=== PATIENT | male | born 1960 | race Caucasian/White ===

== ENCOUNTER 2016-07-20 21:52 | Inpatient (IN) | payer OTHER, MEDICARE ==
[~2016-07-20] VITALS: Ht 182.9 cm; Wt 99.0 kg
[~2016-07-20 21:52] MED LIST: ATOR20TA PO; CLON1TAB PO; FLUO20SO3 PO; IBUP-232 PO; LAMO25TA PO; LORTA5 PO; LOTE20TA3 PO; METF850T OR; NOVOLOGP2 SQ; PROT40TA PO; TRAZ150T2 PO; WELL150T PO
[2016-07-20 21:56] VITALS: BP 184/110; PULSE 74; RESP 20; TEMP 98; O2SAT 98
[2016-07-20] MEDS ORDERED: SODIUM CHLOR 0.9% 1000 ML INJ 1,000 ML IV ONE (22:03)
[2016-07-20] MEDS ORDERED: ALPR.5 PO (22:04)
[2016-07-20] MEDS ORDERED: PROZ40CA PO (22:04)
[2016-07-20] MEDS ORDERED: METF1000 PO (22:04)
[2016-07-20] MEDS ORDERED: PROT40TA PO (22:04)
[2016-07-20] MEDS ORDERED: NOVOLOGP2 SQ (22:04)
[2016-07-20] MEDS ORDERED: LOTE40TA PO (22:04)
[2016-07-20] MEDS ORDERED: ATOR20TA15 PO (22:04)
[2016-07-20] MEDS ORDERED: LAMO25TA PO (22:04)
[2016-07-20] MEDS ORDERED: BUPR150CR PO (22:04)
[2016-07-20 22:10] VITALS: RESP 20
[2016-07-20] MEDS ORDERED: SODIUM CHLORIDE 0.9% FLUSH 5 ML FLUSH IVF PRN (22:15)
[2016-07-20] MEDS ORDERED: LORazepam 2 MG/ML VIAL IVS ONE (22:15)
--- NOTE | 2016-07-20 22:30 | RADRPT ---
EXAM DATE/TIME: 07/20/2016 22:06 [facility] COMPARISON: No previous studies available for comparison. INDICATIONS : Altered mental status, headache, and seizure. RADIATION DOSE: 56.35 CTDIvol (mGy) MEDICAL HISTORY : Seizures. Hypertension. SURGICAL HISTORY : Hip replacement. ENCOUNTER: Initial ACUITY: 1 day PAIN SCALE: 3/10 LOCATION: cranial TECHNIQUE: Multiple contiguous axial images were obtained of the head. Using automated exposure control and adj ustment of the mA and/or kV according to patient size, radiation dose was kept as low as reasonably a chievable to obtain optimal diagnostic quality images. FINDINGS: There is no evidence for intracranial hemorrhage, mass effect, mass lesions, or edema. The visualize d bony structures appear intact. Slight degree of brain atrophy is seen. There are no signs of acute infarction for technique. CONCLUSION: Slight atrophic changes without any evidence for acute hemorrhage or mass effect . Pao Adame MD on July 20, 2016 at 22:27 Board Certified Radiologist. This report was verified electronically.
[2016-07-20 22:36] VITALS: BP 189/97; PULSE 66; RESP 20; O2SAT 99
--- NOTE | 2016-07-20 22:39 | PD ---
HPI Chief Complaint: Seizure Time Seen by Provider: 22:03 Travel History International Travel<30 days: No Contact w/Intl Traveler<30days: No Traveled to known affect area: No History of Present Illness HPI Is a 56-year-old man who presents to the emergency department after a witnessed generalized seizure. His a history of childhood seizures but none for many years. None as an adult. states he was sitting in a chair when he had his arm stretched out straight in front of him leg stretches straight out the generalized shaking for about a minute. EMS reports postictal confusion. He has been under a lot of stress recently, but no other recent illnesses or injuries. He takes Xanax as needed for anxiety, usually 2 times per day, but no recent change. He drinks a couple times a week, but his never had withdrawal symptoms. Denies any other new or worsening symptoms. History Past Medical History Narrative Medical Diabetes Childhood seizures Anxiety Hypertension Hyperlipidemia Musculoskeletal complains of previous back hip and left shoulder surgery Tetanus Vaccination: < 5 Years Influenza Vaccination: Yes PNEUMOCCOCAL Vaccine (Year): 3 Social History Alcohol Use: No Tobacco Use: Yes (06/25 PPD) Allergies-Medications (Allergen,Severity, Reaction): Coded Allergies: No Known Allergies (Verified , 07/23/15) Reported Meds & Prescriptions Reported Meds & Active Scripts Active Reported Lamotrigine 25 Mg Tab 50 Mg PO BID Lotensin (Benazepril HCl) 40 Mg Tab 40 Mg PO DAILY Metformin (Metformin HCl) 1,000 Mg Tab 1,000 Mg PO BIDPC With meals Protonix (Pantoprazole Sodium) 40 Mg Tab 40 Mg PO DAILY Novolog Inj (Insulin Aspart) 1,000 Unit/10 Ml Vial 0 SQ DIRECTED Sliding Scale as directed. Prozac (Fluoxetine HCl) 40 Mg Cap 80 Mg PO DAILY Wellbutrin SR 12 HR (Bupropion HCl) 150 Mg Tab 150 Mg PO Q12HR Atorvastatin (Atorvastatin Calcium) 20 Mg Tab 20 Mg PO HS Xanax (Alprazolam) 0.5 Mg Tab 0.5 Mg PO Q6H PRN Review of Systems Except as stated in HPI: all other systems reviewed are Neg Physical Exam Narrative GENERAL: Well-appearing 56 year-old man, still little bit confused. SKIN: Warm and dry. HEAD: Atraumatic. Normocephalic. EYES: Pupils equal and round. No scleral icterus. No injection or drainage. ENT: No nasal bleeding or discharge. Mucous membranes pink and moist. NECK: No meningismus. CARDIOVASCULAR: Regular rate and rhythm. No murmur appreciated. RESPIRATORY: No accessory muscle use. Clear to auscultation. Breath sounds equal bilaterally. GASTROINTESTINAL: Abdomen soft, non-tender, nondistended. Hepatic and splenic margins not palpable. MUSCULOSKELETAL: No obvious deformities. No edema. NEUROLOGICAL: Awake and alert. Sometimes slow to answer a few questions, but not overtly confused. No obvious cranial nerve deficits. Motor grossly within normal limits. Normal speech. Data Data Last Documented VS Vital Signs Date Time Temp Pulse Resp B/P Pulse Ox O2 Delivery O2 Flow Rate FiO2 07/20/16 22:36 66 20 189/97 99 Nasal Cannula 2 07/20/16 21:56 98.0 Orders Complete Blood Count With Diff (07/20/16 22:03) Alcohol (Ethanol) (07/20/16 22:03) Drug Screen, Random Urine (07/20/16 22:03) Electrocardiogram (07/20/16 ) Ct Brain W/O Iv Contrast(Rout) (07/20/16 ) Blood Glucose (07/20/16 22:03) Ecg Monitoring (07/20/16 22:03) Iv Access Insert/Monitor (07/20/16 22:03) Oximetry (07/20/16 22:03) Comprehensive Metabolic Panel (07/20/16 22:03) Sodium Chlor 0.9% 1000 Ml Inj (Ns 1000 M (07/20/16 22:03) Sodium Chloride 0.9% Flush (Ns Flush) (07/20/16 22:15) Lorazepam Inj (Ativan Inj) (07/20/16 22:15) Ua Includes Microscopic (07/20/16 22:03) Labs Laboratory Tests Test 07/20/16 07/20/16 22:06 23:10 White Blood Count 9.4 TH/MM3 Red Blood Count 4.49 MIL/MM3 Hemoglobin 14.6 GM/DL Hematocrit 41.1 % Mean Corpuscular Volume 91.7 FL Mean Corpuscular Hemoglobin 32.5 PG Mean Corpuscular Hemoglobin 35.5 % Concent Red Cell Distribution Width 13.4 % Platelet Count 408 TH/MM3 Mean Platelet Volume 7.2 FL Neutrophils (%) (Auto) 55.1 % Lymphocytes (%) (Auto) 34.3 % Monocytes (%) (Auto) 8.7 % Eosinophils (%) (Auto) 1.5 % Basophils (%) (Auto) 0.4 % Neutrophils # (Auto) 5.2 TH/MM3 Lymphocytes # (Auto) 3.2 TH/MM3 Monocytes # (Auto) 0.8 TH/MM3 Eosinophils # (Auto) 0.1 TH/MM3 Basophils # (Auto) 0.0 TH/MM3 CBC Comment DIFF FINAL Differential Comment Sodium Level 134 MEQ/L Potassium Level 3.9 MEQ/L Chloride Level 95 MEQ/L Carbon Dioxide Level 28.0 MEQ/L Anion Gap 11 MEQ/L Blood Urea Nitrogen 18 MG/DL Creatinine 1.38 MG/DL Estimat Glomerular Filtration 53 ML/MIN Rate Random Glucose 147 MG/DL Calcium Level 9.4 MG/DL Total Bilirubin 0.2 MG/DL Aspartate Amino Transf 26 U/L (AST/SGOT) Alanine Aminotransferase 54 U/L (ALT/SGPT) Alkaline Phosphatase 86 U/L Total Protein 7.7 GM/DL Albumin 3.8 GM/DL Ethyl Alcohol Level LESS THAN 3 MG/DL Urine Color YELLOW Urine Turbidity CLEAR Urine pH 6.0 Urine Specific [place] 1.012 Urine Protein NEG mg/dL Urine Glucose (UA) 300 mg/dL Urine Ketones NEG mg/dL Urine Occult Blood NEG Urine Nitrite NEG Urine Bilirubin NEG Urine Urobilinogen LESS THAN 2.0 MG/DL Urine Leukocyte Esterase NEG Urine RBC 2 /hpf Urine Hyaline Casts 7 /lpf Urine Mucus FEW /lpf Urine Opiates Screen NEG Urine Barbiturates Screen NEG Urine Amphetamines Screen NEG Urine Benzodiazepines Screen POS Urine Cocaine Screen NEG Urine Cannabinoids Screen NEG MDM Medical Decision Making Medical Screen Exam Complete: Yes Emergency Medical Condition: Yes Interpretation(s) My review of EKG: Sinus rhythm at a rate of 63, normal axis, normal intervals, no ischemia. Differential Diagnosis LABS: CBC is unremarkable. CMP is unremarkable. Mildly elevated creatinine. Glucose 147. UA demonstrates glucose in the urine. Urine drug screen positive for benzodiazepines. Narrative Course Medical decision making 56-year-old man with generalized seizure times about a minute, history of childhood seizures but nothing recently. No clear precipitants. We'll check CT , labs, urine. Recommend against driving. He sees Dr. Baker with neurology, will recommend outpatient follow-up. Diagnosis Primary Impression: Seizure Additional Instructions: Continue Xanax as prescribed. Follow-up with Dr. Baker in 2-[address] or operate heavy machinery until cleared by neurology. You should avoid being in any situation where if you had a seizure it could be dangerous such as swimming, looking on a ladder, or other such activities. Return to the emergency department for any seizures lasting more than 5 minutes , [id number] seizures, or seizures with prolonged confusion afterwards. Med/Other Pt SpecificInfo: No Change to Meds Disposition: 01 DISCHARGE HOME Condition: Stable Ernesto Ballesteros MD Jul 20, 2016 22:39
[2016-07-20 22:44] LABS: AUTOMATED NEUTROPHIL # 5.2 TH/MM3 (1.8-7.7); BASOPHIL % 0.4 % (0.0-2.0); EOSINOPHIL # 0.1 TH/MM3 (0-0.4); EOSINOPHIL % 1.5 % (0.0-4.0); HEMATOCRIT 41.1 % (39.0-51.0); HEMO FLAGS DIFF FINAL; LYMPH % 34.3 % (9.0-44.0); LYMPHOCYTE # 3.2 TH/MM3 (1.0-4.8); MEAN CELL VOLUME 91.7 FL (80.0-100.0); MEAN CORPUSCULAR HEMOGLOBIN 32.5 PG (27.0-34.0); MEAN CORPUSCULAR HGB CONC 35.5 % (32.0-36.0); MONO % 8.7 % (0.0-8.0); NEUT % 55.1 % (16.0-70.0); PLATELET COUNT 408 TH/MM3 (150-450); RED BLOOD COUNT 4.49 MIL/MM3 (4.50-5.90); RED CELL DISTRIBUTION WIDTH 13.4 % (11.6-17.2); WHITE BLOOD COUNT 9.4 TH/MM3 (4.0-11.0)
[2016-07-20 23:35] LABS: ALT (GPT) 54 U/L (12-78); ANION GAP 11 MEQ/L (5-15); AST (GOT) 26 U/L (15-37); BLOOD UREA NITROGEN 18 MG/DL (7-18); CHLORIDE 95 MEQ/L (98-107); GLOMERULAR FILTRATION RATE 53 ML/MIN (>89); POTASSIUM 3.9 MEQ/L (3.5-5.1); SODIUM (NA) 134 MEQ/L (136-145)
[2016-07-20 23:37] LABS: ALKALINE PHOSPHATASE 86 U/L (45-117); TOTAL BILIRUBIN ADULT 0.2 MG/DL (0.2-1.0)
[2016-07-20 23:44] LABS: BLOOD, URINE NEG (NEG); GLUCOSE,URINE 300 mg/dL (NEG); HYALINE CAST, URINE 7 /lpf (RARE); KETONE, URINE NEG (NEG); MUCUS URINE FEW /lpf (OCC); NITRITE,URINE NEG (NEG); URINE COLOR YELLOW (YELLW/STRAW)
[2016-07-20 23:45] LABS: AMPHETAMINE, URINE NEG (NEG); BARBITURATES, URINE NEG (NEG); COCAINE, URINE NEG (NEG)
[2016-07-20] MEDS ORDERED: NAPR500 PO (23:58)
[2016-07-20] MEDS ORDERED: HYDR-3533 PO (23:58)
[2016-07-21] VITALS (9 sets, daily range): BP systolic 109–163; BP diastolic 71–94; PULSE 55–90; RESP 18–21; TEMP 97.1–98.8; O2SAT 96–99
[2016-07-21] MEDS ORDERED: ACETAMINOPHEN/HYDROcodone 325 MG/5 MG TAB PO ONE
[2016-07-21] MEDS ORDERED: HYDR-3533 PO (00:57)
[2016-07-21] MEDS ORDERED: NAPR500 PO (00:57)
[2016-07-21] MEDS ORDERED: SODIUM CHLOR 0.9% 1000 ML INJ 1,000 ML IV ONE (01:15)
[2016-07-21] MEDS ORDERED: FOSPHENYTOIN INJ 1,500 MGPE in SODIUM CHLORIDE 0.9% INJ 100 ML IV ONE (01:15)
[2016-07-21] MEDS ORDERED: LORazepam 2 MG/ML VIAL IV PUSH ONE (01:15)
[2016-07-21] MEDS ORDERED: DEXTROSE 50% IN WATER 50 ML VIAL(D50) IV PUSH PRN (01:30)
[2016-07-21] MEDS ORDERED: BISACODYL 10 MG SUPP PR PRN (01:30)
[2016-07-21] MEDS ORDERED: SODIUM CHLORIDE 0.9% FLUSH 5 ML FLUSH FLUSH PRN (01:30)
[2016-07-21] MEDS ORDERED: ONDANSETRON HCL 4 MG/2 ML VIAL IVP PRN (01:30)
[2016-07-21] MEDS ORDERED: GLUCAGON 1 MG/ML VIAL OTHER PRN (01:30)
[2016-07-21] MEDS: SODIUM CHLOR 0.9% 1000 ML INJ 1,000 ML IV SCH ×3 (02:24→21:23)
--- NOTE | 2016-07-21 02:28 | HHI.HP ---
[facility] Primary [facility] Physician Camden Coley MD Admission Diagnosis seizure Diagnoses: (1) Seizure Diagnosis: Principal (2) HTN (hypertension) Diagnosis: Principal (3) DM (diabetes mellitus) Diagnosis: Principal Travel History International Travel<30 Days: No Contact w/Intl Traveler <30 Da: No Traveled to Known Affected Are: No History of Present Illness This is a 56-year-old male with PMH of HTN, Anxiety, DM and Hyperlipidemia was brought to the ER by EMS secondary to witnessed seizure activity by patient's . reports acute onset of seizure activity while at home lasting approx 1 min. +post-ictal state. Upon arrival, to ER, pt AA&Ox4. Reports h/o Seizure in childhood, but no seizure activity for several years. While in ER, pt w/ 2nd seizure. Currently post-ictal. Per review of medications, pt on Lamictal. On arrival, BP 184/110, HR 74, O2 sat 98% on RA, Afebrile. Currently BP 189/97, HR 66. CBC unremarkable. Creatinine 1.38, previously 1.57 on 03/18/15. Urine Drug Screen positive for Benzo, s/p Ativan in ER. U/a negative. reports pt follows w/ Dr. Baker as outpatient. On Xanax at home w/ no changes to medications. CT Head w/ no acute findings. Review of Systems Other ROS: Unable to obtain as patient is post ictal. Past Family Social History Past Medical History PMH: HTN, Anxiety, DM and Hyperlipidemia Past Surgical History PAST SURGICAL HISTORY: Right Hip Replacement, Left Shoulder Surgery Allergies: Coded Allergies: No Known Allergies (Verified , 07/23/15) Family History PAST FAMILY HISTORY: Reviewed. No h/o DM or CAD Social History PAST SOCIAL HISTORY: Negative for alcohol or drugs. Smokes 1/2 ppd. Physical Exam Vital Signs Vital Signs Date Time Temp Pulse Resp B/P Pulse Ox O2 Delivery O2 Flow Rate FiO2 07/21/16 01:23 20 07/20/16 22:36 66 20 189/97 99 Nasal Cannula 2 1/27/17 22:10 20 07/20/16 21:56 98.0 74 20 184/110 98 Physical Exam PE: GENERAL: Middle-aged white male in no acute distress. Postictal. HEENT: PERRLA, EOMI. No scleral icterus or conjunctival pallor. No lid lag or facial droop. CARDIOVASCULAR: Regular rate and rhythm. No obvious murmurs to auscultation. No chest tenderness to palpation. RESPIRATORY: No obvious rhonchi or wheezing. Clear to auscultation. Breath sounds equal bilaterally. GASTROINTESTINAL: Abdomen soft, non-tender, nondistended. BS normal. MUSCULOSKELETAL: Extremities without clubbing, cyanosis, or edema. No obvious deformities. NEUROLOGICAL: Postictal. No focal neurologic deficits. Moving both upper and lower extremities spontaneously. Laboratory Laboratory Tests Test 07/20/16 07/20/16 22:06 23:10 White Blood Count 9.4 Red Blood Count 4.49 Hemoglobin 14.6 Hematocrit 41.1 Mean Corpuscular Volume 91.7 Mean Corpuscular Hemoglobin 32.5 Mean Corpuscular Hemoglobin 35.5 Concent Red Cell Distribution Width 13.4 Platelet Count 408 Mean Platelet Volume 7.2 Neutrophils (%) (Auto) 55.1 Lymphocytes (%) (Auto) 34.3 Monocytes (%) (Auto) 8.7 Eosinophils (%) (Auto) 1.5 Basophils (%) (Auto) 0.4 Neutrophils # (Auto) 5.2 Lymphocytes # (Auto) 3.2 Monocytes # (Auto) 0.8 Eosinophils # (Auto) 0.1 Basophils # (Auto) 0.0 CBC Comment DIFF FINAL Differential Comment Sodium Level 134 Potassium Level 3.9 Chloride Level 95 Carbon Dioxide Level 28.0 Anion Gap 11 Blood Urea Nitrogen 18 Creatinine 1.38 Estimat Glomerular Filtration 53 Rate Random Glucose 147 Calcium Level 9.4 Total Bilirubin 0.2 Aspartate Amino Transf 26 (AST/SGOT) Alanine Aminotransferase 54 (ALT/SGPT) Alkaline Phosphatase 86 Total Protein 7.7 Albumin 3.8 Ethyl Alcohol Level LESS THAN 3 Urine Color YELLOW Urine Turbidity CLEAR Urine pH 6.0 Urine Specific [place] 1.012 Urine Protein NEG Urine Glucose (UA) 300 Urine Ketones NEG Urine Occult Blood NEG Urine Nitrite NEG Urine Bilirubin NEG Urine Urobilinogen LESS THAN 2.0 Urine Leukocyte Esterase NEG Urine RBC 2 Urine Hyaline Casts 7 Urine Mucus FEW Urine Opiates Screen NEG Urine Barbiturates Screen NEG Urine Amphetamines Screen NEG Urine Benzodiazepines Screen POS Urine Cocaine Screen NEG Urine Cannabinoids Screen NEG Result Diagram: 07/20/16220507/20/162205 Assessment and Plan Problem List: (1) Seizure ICD Code: R56.9 Status: Acute (2) HTN (hypertension) ICD Code: I10 Status: Acute (3) DM (diabetes mellitus) ICD Code: E11.9 Status: Acute Assessment and Plan A/P: 1. Seizure: h/o childhood seizures per report, however on Lamictal per review of home meds. Seizure x2 this evening. S/p Ativan in ER and Cerebyx 1gm IV x1. CT Head w/ no acute findings, images reviewed by me. Follows w/ Dr. Baker as outpatient, will consult for further recommendations. Seizure Precautions, Ativan prn, resume home Lamictal. U/a negative, Urine Drug Screen positive for Benzo 2. DM: Sliding scale w/ Accu-Cheks. Hold Metformin for now. 3. HTN: BP 180's systolic. Resume Benazepril. Monitor BP. 4. DVT Prophylaxis: SCD/Teds. 5. Social work for d/c planning as needed. 6. Case discussed w/ ER physician at length. Gabriella Gillis MD Jul 21, 2016 02:28
[2016-07-21] MEDS: INSULIN ASPART SUPPLEMENTAL SCALE SQ SCH ×4 (06:05→21:46)
[2016-07-21] MEDS: PANTOPRAZOLE SOD 40 MG DELAYED RELEASE TAB PO SCH (08:44)
[2016-07-21] MEDS: SODIUM CHLORIDE 0.9% FLUSH 5 ML FLUSH FLUSH SCH ×2 (08:44→21:41)
[2016-07-21] MEDS: FLUoxetine HCL 20 MG CAP PO SCH (08:45)
[2016-07-21] MEDS: lamoTRIgine 25 MG TAB PO SCH ×2 (08:45→21:41)
[2016-07-21] MEDS: LISINOPRIL 20 MG TAB PO SCH (08:45)
[2016-07-21] MEDS ORDERED: buPROPion HCL 150 MG SUSTAINED RELEASE TAB PO SCH (09:00)
[2016-07-21] MEDS: LORazepam 2 MG/ML VIAL IV PUSH PRN (09:14)
[2016-07-21] MEDS ORDERED: GADODIAMIDE PF 287 MG/ML 20 ML VIAL (for RAD MRI) IV ONE (10:31)
[2016-07-21] MEDS: ALPRAZolam 0.5 MG TAB PO PRN (11:06)
--- NOTE | 2016-07-21 11:15 | RADRPT ---
EXAM DATE/TIME: 07/21/2016 10:24 [facility] COMPARISON: CT BRAIN W/O CONTRAST, July 20, 2016, 22:06. INDICATIONS : Seizures. CONTRAST: 20 cc Omniscan (gadodiamide) IV MEDICAL HISTORY : Hypertension. Diabetes mellitus type 2. Hypercholesterolemia. SURGICAL HISTORY : Orthopedic. ENCOUNTER: Initial ACUITY: 1 day PAIN SCORE: 4/10 LOCATION: Right Foot TECHNIQUE: Multiplanar, multisequence MRI of the brain was performed both prior to and following the administrat ion of paramagnetic contrast. FINDINGS: CEREBRUM: The ventricles are normal for age. No evidence of midline shift, mass lesion, hemorrhage or acute in farction. No extraaxial fluid collections are seen. The pituitary gland and suprasellar cistern are normal in configuration. WHITE MATTER: No significant signal abnormalities are seen in the white matter. POSTERIOR FOSSA: The cerebellum and brainstem are intact. The 4th ventricle is midline. The cerebellopontine angle is unremarkable. The cerebellar tonsils are normal in position. DIFFUSION IMAGING: No focal areas of restricted diffusion are seen. No evidence of acute infarction. EXTRACRANIAL: The visualized portions of the orbits and paranasal sinuses are unremarkable. POST-CONTRAST: No abnormal areas of parenchymal or dural enhancement. No evidence of blood-brain barrier breakdown. CONCLUSION: Normal examination for a patient of this age. Axel Hernandez MD on July 21, 2016 at 11:12 Board Certified Radiologist. This report was verified electronically.
--- NOTE | 2016-07-21 12:27 | EKG ---
Date Performed: 07/20/2016 Time Performed: 21:57:28 PTAGE: 56 years EKG: Sinus rhythm NORMAL ECG PREVIOUS TRACING : 09/16/2014 18.33 Compared to prior tracing no significant change DOCTOR: Stephan Portillo Interpretating Date/Time 07/21/2016 12:24:56
--- NOTE | 2016-07-21 13:34 | MB ---
cc: MATTHEW BAKER M.D. DATE OF CONSULTATION 07/21/16 The patient is seen in neurological consultation. He is a 56-year-old with a history of remote seizures, during childhood. History of anxiety disorder, hypertension, diabetes. He was brought to the hospital with history of a seizure witnessed by the and apparently had another seizure witnessed by the EMS. He was postictal and has been fine after this. Apparently, he sees Dr. Baker, my associate for back and leg problems. It appears that he takes Lamictal and Xanax. He says his significant other is bringing his medications which are extensive as per the patient. He was given Celebrex and Ativan in the emergency room. The patient is a poor historian. The neurologic exam shows some anxiety, ocular movements normal. Visual lo are normal. No facial weakness but he has evidence of predominantly right-sided tongue injury. He has good strength in all four limbs with some tenderness left foot due to foot injury. Reflexes were trace response versus absent throughout. Plantar responses were flexor. The CT brain shows mild atrophy, otherwise unremarkable. CBC is unremarkable, essentially normal. Sodium 134, creatinine 1.38, glucose 147, otherwise normal chemistry. Toxicology positive for benzodiazepine. ASSESSMENT Seizure recurrence. The patient admits that the last alcohol was about 13 days ago. He has history of seizures during childhood and he is a poor historian but no apparent seizures for many years. He does take Lamictal but this is not the fairly for seizures. He follows with Dr. Baker but he says this is for back and legs and not for seizure disorder. He was started on cerebyx. I will request an EEG and MRI brain studies. The current list of medications includes bupropion and Prozac and this combination might be risky in terms of seizures, therefore, will have to reassess these and consider changing antidepressant medications. Will follow with a Dilantin level. Thank you for asking us to assist in his care. Matthew Baker MD OFC/EO /10:51 AM /1:21 PM
[2016-07-21] MEDS: PHENYTOIN SODIUM 100 MG CAP PO SCH ×2 (13:59→21:41)
[2016-07-21] MEDS ORDERED: oxyCODONE/ACETAMINOPHEN 5 MG/325 MG TAB PO PRN (17:30)
[2016-07-21] MEDS: oxyCODONE/ACETAMINOPHEN 10 MG/325 MG TAB PO PRN (17:44)
--- NOTE | 2016-07-21 18:07 | MG ---
cc: MATTHEW CARVALHO M.D. Lab No: Date: Age: 56 Sex: M Race: HISTORY: An EEG was obtained on this 56-year-old patient with history of seizures. DESCRIPTION OF THE RECORD: The patient is awake and asleep. There is 10-14 per second activity centrally and posteriorly during wakefulness. There are low amplitude beta rhythms diffusely. Throughout the study there are some occasional, left more than right, sharp discharges. The patient enters sleep stage I. There is intermittent awake and asleep. Later on there is sleep stage II as well. Photic stimulation was unremarkable. INTERPRETATION: Abnormal EEG because of the intermittent sharp / spike discharges bilaterally, possibly left more than right temporal head region. These findings are suggestive of an epileptiform abnormality but no ictal pattern noted. Matthew Carvalho MD [facility] /5:41 PM /6:04 PM
--- NOTE | 2016-07-21 18:41 | RADRPT ---
EXAM DATE/TIME: 07/21/2016 17:40 [facility] COMPARISON: No previous studies available for comparison. INDICATIONS : Fall. Left foot pain. MEDICAL HISTORY : None. SURGICAL HISTORY : None. ENCOUNTER: Initial ACUITY: 1 day PAIN SCORE: 7/10 LOCATION: Left lateral FINDINGS: Three view examination of the left foot demonstrates no soft tissue swelling, dislocation, or fractur e. The tarsal bones appear intact. The interphalangeal and metatarsophalangeal joints are intact. The calcaneus is intact. Bony mineralization is normal. CONCLUSION: No evidence of recent bony injury. Oneal Parisi MD on July 21, 2016 at 18:38 Board Certified Radiologist. This report was verified electronically.
[2016-07-21] MEDS: ATORVASTATIN 20 MG TAB PO SCH (21:41)
[2016-07-22] MEDS: ALPRAZolam 0.5 MG TAB PO PRN ×2 (03:27→08:37)
[2016-07-22 04:33] VITALS: BP 147/82; PULSE 66; RESP 20; TEMP 98.8; O2SAT 98
[2016-07-22] MEDS: PHENYTOIN SODIUM 100 MG CAP PO SCH ×3 (06:01→22:01)
[2016-07-22] MEDS: INSULIN ASPART SUPPLEMENTAL SCALE SQ SCH ×4 (06:38→21:00)
[2016-07-22 07:39] VITALS: BP 181/89; PULSE 67; RESP 20; TEMP 98.4; O2SAT 98
[2016-07-22 08:00] VITALS: PULSE 67
[2016-07-22] MEDS: SODIUM CHLOR 0.9% 1000 ML INJ 1,000 ML IV SCH ×2 (08:36→17:23)
[2016-07-22] MEDS: LISINOPRIL 20 MG TAB PO SCH (08:36)
[2016-07-22] MEDS: PANTOPRAZOLE SOD 40 MG DELAYED RELEASE TAB PO SCH (08:37)
[2016-07-22] MEDS: FLUoxetine HCL 20 MG CAP PO SCH (08:37)
[2016-07-22] MEDS: lamoTRIgine 25 MG TAB PO SCH (08:37)
[2016-07-22] MEDS: SODIUM CHLORIDE 0.9% FLUSH 5 ML FLUSH FLUSH SCH ×2 (08:38→22:01)
[2016-07-22 08:47] LABS: AUTOMATED NEUTROPHIL # 6.6 TH/MM3 (1.8-7.7); BASOPHIL # 0.1 TH/MM3 (0-0.2); BASOPHIL % 0.6 % (0.0-2.0); EOSINOPHIL # 0.1 TH/MM3 (0-0.4); EOSINOPHIL % 0.8 % (0.0-4.0); HEMO FLAGS DIFF FINAL; LYMPH % 25.8 % (9.0-44.0); LYMPHOCYTE # 2.6 TH/MM3 (1.0-4.8); MEAN CELL VOLUME 92.6 FL (80.0-100.0); MEAN CORPUSCULAR HEMOGLOBIN 32.2 PG (27.0-34.0); MEAN CORPUSCULAR HGB CONC 34.8 % (32.0-36.0); MONO % 8.3 % (0.0-8.0); NEUT % 64.5 % (16.0-70.0); PLATELET COUNT 312 TH/MM3 (150-450); RED BLOOD COUNT 4.22 MIL/MM3 (4.50-5.90); RED CELL DISTRIBUTION WIDTH 13.6 % (11.6-17.2); WHITE BLOOD COUNT 10.2 TH/MM3 (4.0-11.0)
[2016-07-22 09:07] LABS: ALKALINE PHOSPHATASE 66 U/L (45-117); ALT (GPT) 48 U/L (12-78); ANION GAP 10 MEQ/L (5-15); AST (GOT) 21 U/L (15-37); BICARBONATE 24.8 MEQ/L (21.0-32.0); BLOOD UREA NITROGEN 9 MG/DL (7-18); CHLORIDE 100 MEQ/L (98-107); GLOMERULAR FILTRATION RATE 76 ML/MIN (>89); POTASSIUM 3.2 MEQ/L (3.5-5.1); SODIUM (NA) 135 MEQ/L (136-145); TOTAL BILIRUBIN ADULT 0.3 MG/DL (0.2-1.0)
--- NOTE | 2016-07-22 09:29 | HHI.PR ---
Subjective Remarks Follow up for seizures. The patient states he had a "bad night" however no further seizure episodes. He was not able to get any sleep and has no appetite. He admits to feeling anxious and depressed, denies any SI/HI. Significant other at bedside states the patient has been very anxious about what's going on and why his seizures have returned. He sees Dr. Calhoun as outpatient for psychiatry. He sees PCP Dr. Camden Coley. Objective Vitals Vital Signs Date Time Temp Pulse Resp B/P Pulse Ox O2 Delivery O2 Flow Rate FiO2 07/22/16 07:39 98.4 67 20 181/89 98 07/22/16 04:33 98.8 66 20 147/82 98 07/21/16 23:54 71 07/21/16 23:44 98.5 66 18 155/81 98 07/21/16 20:33 98.7 67 18 118/81 96 07/21/16 16:00 98.8 64 18 163/94 97 07/21/16 12:30 97.1 66 21 135/82 96 I/O 07/21/16 07/21/16 07/21/16 07/22/16 07/22/16 07/22/16 07:00 15:00 23:00 07:00 15:00 23:00 Intake Total 1200 ml 480 ml Output Total 600 ml 2000 ml 1000 ml 600 ml Balance 600 ml -1520 ml -1000 ml -600 ml Intake Oral 200 ml 480 ml IV Total 1000 ml Output Urine Total 600 ml 2000 ml 1000 ml 600 ml # Voids 1 Result Diagram: 07/22/16 0825 07/22/16 0825 Imaging Last Impressions Foot X-Ray 07/21/16 0000 Signed Impressions: Service Date/Time: Thursday, July 21, 2016 17:40 - CONCLUSION: No evidence of recent bony injury. Oneal Parsii MD Brain MRI 07/21/16 0000 Signed Impressions: Service Date/Time: Thursday, July 21, 2016 10:24 - CONCLUSION: Normal examination for a patient of this age. Axel Hernandez MD Head CT 07/20/16 0000 Signed Impressions: Service Date/Time: Wednesday, July 20, 2016 22:06 - CONCLUSION: Slight atrophic changes without any evidence for acute hemorrhage or mass effect. Pao Adame MD Objective Remarks GENERAL: Well-nourished, well-developed middle aged male patient in NAD. SKIN: Warm and dry. No rash. HEAD: Normocephalic. Atraumatic. EYES: Pupils equal and round. No scleral icterus. No injection or drainage. ENT: No nasal bleeding or discharge. Mucous membranes pink and moist. NECK: Supple. Trachea midline. CARDIOVASCULAR: Regular rate and rhythm. S1, S2 noted. No murmur appreciated. RESPIRATORY: No accessory muscle use. Clear to auscultation. Breath sounds equal bilaterally. GASTROINTESTINAL: Abdomen soft, non-tender, nondistended. Normoactive bowel sounds x4. MUSCULOSKELETAL: No obvious deformities. Extremities without clubbing, cyanosis , or edema. NEUROLOGICAL: Awake and alert. No obvious cranial nerve deficits. Motor grossly within normal limits. 5/5 muscle strength in bilateral upper and lower extremities. Normal speech. PSYCHIATRIC: Anxious/depressed mood; insight and judgment normal. Medications and IVs Current Medications Medications (Trade) Dose Ordered Sig/Anh Route Start Time Stop Time Status Last Admin (NS 1000 ml Inj) 1,000 ml @ 100 mls/hr Q10H IV 07/21/16 01:23 07/22/16 08:36 (NS Flush) 2 ml UNSCH PRN FLUSH 07/21/16 01:30 (NS Flush) 2 ml BID FLUSH 07/21/16 09:00 07/21/16 21:41 (Zofran Inj) 4 mg Q6H PRN IVP 07/21/16 01:30 (Dulcolax Supp) 10 mg DAILY PRN NV 07/21/16 01:30 (Tylenol) 650 mg Q6H PRN PO 07/21/16 01:30 07/22/16 10:36 (Ativan Inj) 1 mg Q5M PRN IV PUSH 07/21/16 01:30 07/21/16 09:14 (D50w (Vial) Inj) 25 ml UNSCH PRN IV PUSH 07/21/16 01:30 (Glucagon Inj) 1 mg UNSCH PRN OTHER 07/21/16 01:30 (Xanax) 0.5 mg Q6H PRN PO 07/21/16 02:30 07/22/16 08:37 (Lipitor) 20 mg HS PO 07/21/16 21:00 07/21/16 21:41 (Prinivil) 40 mg DAILY PO 07/21/16 09:00 07/22/16 08:36 (PROzac) 80 mg DAILY PO 07/21/16 09:00 07/22/16 08:37 (LaMICtal) 50 mg BID PO 07/21/16 09:00 07/22/16 08:37 (Protonix) 40 mg DAILY PO 07/21/16 09:00 07/22/16 08:37 (Dilantin) 100 mg Q8HR PO 07/21/16 14:00 07/22/16 06:01 (Percocet 5-325 Mg) 1 tab Q6H PRN PO 07/21/16 17:30 (Percocet 10-325 Mg) 1 tab Q6H PRN PO 07/21/16 17:30 07/21/16 17:44 Urinary Catheter: No Vascular Central Line Catheter: No A/P Problem List: (1) Seizure ICD Code: R56.9 Status: Acute (2) HTN (hypertension) ICD Code: I10 Status: Acute (3) DM (diabetes mellitus) ICD Code: E11.9 Status: Acute Assessment and Plan 56-year-old male with PMH of HTN, Anxiety, Depression, DM and HLD was brought by EMS secondary to witnessed seizure activity by patient's , lasted 1 minute, was postictal, then had another seizure in ER. Seizure: h/o childhood seizures per report, none in many years. Seizure x2 witnessed. S/p Cerebyx 1gm IV x1. CT Head w/ no acute findings, images reviewed by me. U/a negative, Urine Drug Screen positive for Benzo. Seizure Precautions, Ativan prn, resume home Lamictal. Consult neurology, seen by Dr. Carvalho. Brain MRI unremarkable. EEG abnormal with intermittent sharp/spike discharges bilaterally, possible L > R, suggestive of epileptiform abnormality. Continue on Dilantin 100mg po tid. Phenytoin level therapeutic. Await neurology f/up or clearance for discharge. DM: Sliding scale w/ Accu-Cheks. Hold Metformin for now. HTN: BP 180's systolic. Resume Benazepril. Monitor BP. Improving however intermittent elevated BP likely secondary to anxiety. Anxiety/Depression: with possible acute depressive state, poor appetite/insomnia ; however no SI/HI. Follows with Dr. Calhoun as outpatient. Continue Wellbutrin, Prozac, Xanax prn. DVT Prophylaxis: SCD/Teds. Written by Marley Hardin, acting as scribe for Dr. Sheppard on 07/22/16 at 09:27. The documentation accurately reflects the work performed [id number] by me Dr. Sheppard on 07/22/16 at 09:27. Discharge Planning Possible discharge if cleared by neurology. Marley Hardin PA-C Jul 22, 2016 09:29 Shoshana Sheppard MD Jul 22, 2016 14:35
[2016-07-22] MEDS: ACETAMINOPHEN 325 MG TAB PO PRN ×2 (10:36→22:00)
[2016-07-22 11:22] VITALS: BP 154/85; PULSE 67; RESP 20; TEMP 98.7; O2SAT 98
[2016-07-22] MEDS ORDERED: POTASSIUM CHLORIDE 20 MEQ CONTROLLED RELEASE TAB PO ONE (12:45)
[2016-07-22] MEDS: oxyCODONE/ACETAMINOPHEN 10 MG/325 MG TAB PO PRN ×2 (13:15→23:36)
[2016-07-22 15:26] VITALS: BP 159/94; PULSE 94; RESP 20; TEMP 98.2; O2SAT 94
[2016-07-22] MEDS: LORazepam 2 MG/ML VIAL IV PUSH PRN (15:36)
[2016-07-22] MEDS ORDERED: levETIRAcetam 1000 MG INJ 100 ML IV ONE (16:00)
[2016-07-22 21:33] LABS: MAGNESIUM 1.4 MG/DL (1.5-2.5); POTASSIUM 3.2 MEQ/L (3.5-5.1)
[2016-07-22] MEDS: levETIRAcetam 500 MG TAB PO SCH (21:59)
[2016-07-22] MEDS: ATORVASTATIN 20 MG TAB PO SCH (22:00)
[2016-07-22] MEDS: lamoTRIgine 100 MG TAB PO SCH (22:01)
[2016-07-23] MEDS: SODIUM CHLOR 0.9% 1000 ML INJ 1,000 ML IV SCH ×3 (03:23→23:23)
[2016-07-23] MEDS: LORazepam 2 MG/ML VIAL IV PUSH PRN ×3 (03:49→13:32)
[2016-07-23 04:00] VITALS: BP 150/78; PULSE 93; RESP 21; TEMP 98; O2SAT 98
[2016-07-23] MEDS: PHENYTOIN SODIUM 100 MG CAP PO SCH ×3 (05:57→21:36)
[2016-07-23] MEDS: INSULIN ASPART SUPPLEMENTAL SCALE SQ SCH ×4 (06:02→21:00)
[2016-07-23 07:58] VITALS: BP 171/89; PULSE 87; RESP 22; TEMP 98.8; O2SAT 97
[2016-07-23] MEDS: FLUoxetine HCL 20 MG CAP PO SCH (09:41)
[2016-07-23] MEDS: PANTOPRAZOLE SOD 40 MG DELAYED RELEASE TAB PO SCH (09:41)
[2016-07-23] MEDS: LISINOPRIL 20 MG TAB PO SCH (09:41)
[2016-07-23] MEDS: lamoTRIgine 100 MG TAB PO SCH ×2 (09:41→21:36)
[2016-07-23] MEDS: SODIUM CHLORIDE 0.9% FLUSH 5 ML FLUSH FLUSH SCH ×2 (09:41→21:35)
[2016-07-23] MEDS: levETIRAcetam 500 MG TAB PO SCH ×2 (09:41→21:36)
--- NOTE | 2016-07-23 10:32 | HHI.PR ---
Subjective Remarks Follow up for seizure. The patient had a seizure yesterday afternoon however none since. He does not recall the event. Denies any tremor. Currently only oriented to his name, not birthdate/place/time. He has been in restraints throughout the night, constantly trying to get up from bed, stating he's going to leave. The daughter at bedside reports that the patient has been voicing severe depression, saying he's going to kill himself and kill his girlfriend. He 's also saying his family is ruining his "exit plan". Family requesting psychiatric evaluation. Objective Vitals Vital Signs Date Time Temp Pulse Resp B/P Pulse Ox O2 Delivery O2 Flow Rate FiO2 07/23/16 07:58 98.8 87 22 171/89 97 07/23/16 04:00 98.0 93 21 150/78 98 07/22/16 23:00 20 07/22/16 15:26 98.2 94 20 159/94 94 07/22/16 11:22 98.7 67 20 154/85 98 I/O 07/22/16 07/22/16 07/22/16 07/23/16 07/23/16 07/23/16 07:00 15:00 23:00 07:00 15:00 23:00 Output Total 1000 ml 1700 ml Balance -1000 ml -1700 ml Output Urine Total 1000 ml 1700 ml # Voids 2 Result Diagram: 07/22/16 0825 07/22/166 Imaging Last Impressions Foot X-Ray 07/21/16 0000 Signed Impressions: Service Date/Time: Thursday, July 21, 2016 17:40 - CONCLUSION: No evidence of recent bony injury. Oneal Parisi MD Brain MRI 07/21/16 0000 Signed Impressions: Service Date/Time: Thursday, July 21, 2016 10:24 - CONCLUSION: Normal examination for a patient of this age. Axel Hernandez MD Head CT 07/20/16 0000 Signed Impressions: Service Date/Time: Wednesday, July 20, 2016 22:06 - CONCLUSION: Slight atrophic changes without any evidence for acute hemorrhage or mass effect. Pao Adame MD Objective Remarks GENERAL: Well-nourished, well-developed middle aged male patient in NAD. Extremities in restraints. SKIN: Warm and dry. No rash. HEAD: Normocephalic. Atraumatic. EYES: Pupils equal and round. No scleral icterus. No injection or drainage. ENT: No nasal bleeding or discharge. Mucous membranes pink and moist. NECK: Supple. Trachea midline. CARDIOVASCULAR: Regular rate and rhythm. S1, S2 noted. No murmur appreciated. RESPIRATORY: No accessory muscle use. Clear to auscultation. Breath sounds equal bilaterally. GASTROINTESTINAL: Abdomen soft, non-tender, nondistended. Normoactive bowel sounds x4. MUSCULOSKELETAL: No obvious deformities. Extremities without clubbing, cyanosis , or edema. NEUROLOGICAL: Awake and alert, but disoriented, oriented to self only. No obvious cranial nerve deficits. Motor grossly within normal limits. 5/5 muscle strength in bilateral upper and lower extremities. Normal speech. PSYCHIATRIC: Anxious/depressed mood; insight and judgment limited at this time. Medications and IVs Current Medications Medications (Trade) Dose Ordered Sig/Anh Route Start Time Stop Time Status Last Admin (NS 1000 ml Inj) 1,000 ml @ 100 mls/hr Q10H IV 07/21/16 01:23 07/22/16 08:36 (NS Flush) 2 ml UNSCH PRN FLUSH 07/21/16 01:30 (NS Flush) 2 ml BID FLUSH 07/21/16 09:00 07/23/16 09:41 (Zofran Inj) 4 mg Q6H PRN IVP 07/21/16 01:30 (Dulcolax Supp) 10 mg DAILY PRN [place] 07/21/16 01:30 (Tylenol) 650 mg Q6H PRN PO 07/21/16 01:30 07/22/16 22:00 (Ativan Inj) 1 mg Q5M PRN IV PUSH 07/21/16 01:30 07/22/16 15:36 (D50w (Vial) Inj) 25 ml UNSCH PRN IV PUSH 07/21/16 01:30 (Glucagon Inj) 1 mg UNSCH PRN OTHER 07/21/16 01:30 (Xanax) 0.5 mg Q6H PRN PO 07/21/16 02:30 07/22/16 08:37 (Lipitor) 20 mg HS PO 07/21/16 21:00 07/22/16 22:00 (Prinivil) 40 mg DAILY PO 07/21/16 09:00 07/23/16 09:41 (PROzac) 80 mg DAILY PO 07/21/16 09:00 07/23/16 09:41 (Protonix) 40 mg DAILY PO 07/21/16 09:00 07/23/16 09:41 (Dilantin) 100 mg Q8HR PO 07/21/16 14:00 07/22/16 22:01 (Percocet 5-325 Mg) 1 tab Q6H PRN PO 07/21/16 17:30 (Percocet 10-325 Mg) 1 tab Q6H PRN PO 07/21/16 17:30 07/22/16 23:36 (LaMICtal) 100 mg BID PO 07/22/16 21:00 07/23/16 09:41 (Keppra) 1,000 mg Q12HR PO 07/22/16 21:00 07/23/16 09:41 (Ativan Inj) 1 mg Q3H PRN IV PUSH 07/23/16 00:45 07/23/16 03:49 Urinary Catheter: No Vascular Central Line Catheter: No A/P Problem List: (1) Seizure ICD Code: R56.9 Status: Acute (2) HTN (hypertension) ICD Code: I10 Status: Acute (3) DM (diabetes mellitus) ICD Code: E11.9 Status: Acute Assessment and Plan 56-year-old male with PMH of HTN, Anxiety, Depression, DM and HLD was brought by EMS secondary to witnessed seizure activity by patient's , lasted 1 minute, was postictal, then had another seizure in ER. Intractable Seizures: h/o childhood seizures per report, none in many years. Seizure x2 witnessed. S/p Cerebyx 1gm IV x1. CT Head w/ no acute findings, images reviewed by me. U/a negative, UDS positive for Benzo. Seizure Precautions , Ativan prn, resume home Lamictal. Consult neurology, seen by Dr. Carvalho. Brain MRI unremarkable. EEG abnormal with intermittent sharp/spike discharges bilaterally, possible L > R, suggestive of epileptiform abnormality. Continue on Dilantin 100mg po tid. Phenytoin level therapeutic. Patient with another witnessed seizure 07/22, discussed with Dr. Carvalho, loaded with 1G IV Keppra, then started on Keppra 1000mg po bid and increased Lamictal to 100mg bid. No further seizures overnight. Alcohol Withdrawal, suspected Delirium Tremens: patient reports drinking a pint of [place] daily. Started on CIWA protocol. Thiamine/Folate/MV ordered. Seizure precautions. Anxiety/Depression with suspected Acute Depressive state and Psychosis: poor appetite/insomnia; now with suicidal/homicidal ideations per family, disoriented. Follows with Dr. Calhoun as outpatient. Continue Wellbutrin, Prozac, Xanax prn. Consult psychiatry. Metabolic Encephalopathy: patient oriented x1. Suspect multifactorial with DTs, seizures and post-ictal state, and acute psychosis. Treating as above. Neuro checks. DM: Sliding scale w/ Accu-Cheks. Hold Metformin for now. HTN: BP 180's systolic. Resume Benazepril. Monitor BP. Improving however intermittent elevated BP likely secondary to anxiety. DVT Prophylaxis: SCD/Teds. Written by Marley Hardin, acting as scribe for Dr. Sheppard on 07/23/16 at 10:31. The documentation accurately reflects the work performed [id number] by me Dr. Sheppard on 07/23/16 at 10:31. Discharge Planning Admit to inpatient with encephalopathy, intractable seizures, alcohol withdrawal with suspected DTs. Marley Hardin PA-C Jul 23, 2016 10:32 Shoshana Sheppard MD Jul 23, 2016 15:03
[2016-07-23 11:59] VITALS: BP 181/97; PULSE 83; RESP 20; TEMP 99.1; O2SAT 94
[2016-07-23] MEDS ORDERED: LORazepam 1 MG TAB PO PRN (13:00)
[2016-07-23] MEDS ORDERED: LORazepam 2 MG TAB PO PRN (13:00)
[2016-07-23] MEDS ORDERED: LORazepam 2 MG/ML VIAL IV PUSH PRN ×4 (13:00)
[2016-07-23] MEDS ORDERED: HALOPERIDOL LACTATE 5 MG/ML AMP IM PRN ×2 (13:00→16:00)
[2016-07-23] MEDS ORDERED: FLUMAZENIL 0.5 MG/5 ML VIAL IV PUSH PRN (13:00)
[2016-07-23] MEDS ORDERED: THIAMINE HCL 100 MG TAB PO SCH (13:00)
[2016-07-23] MEDS: MULTIVITAMINS/MINERALS THERAPEUTIC TAB PO SCH (13:32)
[2016-07-23] MEDS: FOLIC ACID 1 MG TAB PO SCH (13:32)
--- NOTE | 2016-07-23 13:44 | HHI.PR ---
Review/Management Daily Summary seizure recurrence yesterday and confused, agitated today ex- and his daughter at bedside lives with girlfriend, hx of alcoholism possible etoh withdrawal, discussed with PA monitor, eeg abnormal continue seizure meds adjusted yesterday, welbutrin is a risk factor Subjective Subjective Comments another seizure yesterday, confused and agitated today, admits one pint of [place] re[place] daily, Active Medications Current Medications Medications (Trade) Dose Ordered Sig/Anh Route Start Time Stop Time Status Last Admin (NS 1000 ml Inj) 1,000 ml @ 100 mls/hr Q10H IV 07/21/16 01:23 07/22/16 08:36 (NS Flush) 2 ml UNSCH PRN FLUSH 07/21/16 01:30 (NS Flush) 2 ml BID FLUSH 07/21/16 09:00 07/23/16 09:41 (Zofran Inj) 4 mg Q6H PRN IVP 07/21/16 01:30 (Dulcolax Supp) 10 mg DAILY PRN [place] 07/21/16 01:30 (Tylenol) 650 mg Q6H PRN PO 07/21/16 01:30 07/22/16 22:00 (Ativan Inj) 1 mg Q5M PRN IV PUSH 07/21/16 01:30 07/22/16 15:36 (D50w (Vial) Inj) 25 ml UNSCH PRN IV PUSH 07/21/16 01:30 (Glucagon Inj) 1 mg UNSCH PRN OTHER 07/21/16 01:30 (Xanax) 0.5 mg Q6H PRN PO 07/21/16 02:30 07/22/16 08:37 (Lipitor) 20 mg HS PO 07/21/16 21:00 07/22/16 22:00 (Prinivil) 40 mg DAILY PO 07/21/16 09:00 07/23/16 09:41 (PROzac) 80 mg DAILY PO 07/21/16 09:00 07/23/16 09:41 (Protonix) 40 mg DAILY PO 07/21/16 09:00 07/23/16 09:41 (Dilantin) 100 mg Q8HR PO 07/21/16 14:00 07/23/16 13:32 (Percocet 5-325 Mg) 1 tab Q6H PRN PO 07/21/16 17:30 (Percocet 10-325 Mg) 1 tab Q6H PRN PO 07/21/16 17:30 07/22/16 23:36 (LaMICtal) 100 mg BID PO 07/22/16 21:00 07/23/16 09:41 (Keppra) 1,000 mg Q12HR PO 07/22/16 21:00 07/23/16 09:41 (Ativan Inj) 1 mg Q3H PRN IV PUSH 07/23/16 00:45 07/23/16 13:32 (Folate) 1 mg DAILY PO 07/23/16 13:00 07/28/16 12:59 07/23/16 13:32 (Vitamin B1) 100 mg DAILY PO 07/23/16 13:00 07/23/16 13:32 (Theragran M Tab) 1 tab DAILY PO 07/23/16 13:00 07/28/16 12:59 07/23/16 13:32 (Romazicon Inj) 0.2 mg Q1M PRN IV PUSH 07/23/16 13:00 (Ativan) 1 mg Q4H PRN PO 07/23/16 13:00 (Ativan Inj) 1 mg Q4H PRN IV PUSH 07/23/16 13:00 (Ativan) 2 mg Q2H PRN PO 07/23/16 13:00 (Ativan Inj) 2 mg Q2H PRN IV PUSH 07/23/16 13:00 (Ativan Inj) 2 mg Q1H PRN IV PUSH 07/23/16 13:00 (Ativan Inj) 2 mg Q15M PRN IV PUSH 07/23/16 13:00 (Haldol Inj) 2 mg Q15M PRN IM 07/23/16 13:00 Allergies Allergies Coded Allergies No Known Allergies (Verified07/23/15) Exam I&O / VS 07/22/16 07/22/16 07/23/16 15:00 23:00 07:00 Output Total 1700 ml Balance -1700 ml Output Urine Total 1700 ml # Voids 2 Vital Signs Date Time Temp Pulse Resp B/P Pulse Ox O2 Delivery O2 Flow Rate FiO2 07/23/16 11:59 99.1 83 20 181/97 94 07/23/16 07:58 98.8 87 22 171/89 97 07/23/16 04:00 98.0 93 21 150/78 98 07/22/16 23:00 20 07/22/16 15:26 98.2 94 20 159/94 94 Objective Micro and Labs Laboratory Tests Test 07/22/16 20:46 Sodium Level 136 Potassium Level 3.2 Chloride Level 101 Carbon Dioxide Level 24.0 Anion Gap 11 Blood Urea Nitrogen 8 Creatinine 1.10 Estimat Glomerular Filtration 69 Rate Random Glucose 120 Calcium Level 8.7 Magnesium Level 1.4 Colby Carvalho MD Jul 23, 2016 13:44
[2016-07-23] MEDS ORDERED: cloNIDine HCL 0.1 MG TAB PO PRN (13:45)
--- NOTE | 2016-07-23 14:49 | PD.CONS ---
Provisional Diagnosis Admission Date Jul 23, 2016 at 13:43 [place] I. Unspecified psychosis, rule out post ictal psychosis, rule out delirium due to alcohol/benzodiazepines withdrawal, alcohol use disorder, anxiety and depression [place] II. Deferred [place] III. Diabetes mellitus, lower back pain [place] IV. History of alcohol use disorder [place] V. 35 History of Present Illness Service Psychiatry Consult Requested By Primary Care Physician Camden Coley MD HPI The patient is a 56-year-old man, domicile with his girlfriend, unemployed, on SSI, with psychiatric history of depression and anxiety, alcohol use disorder, no previous psychotic hospitalizations, he is on outpatient psychiatric care with Dr. Calhoun in [place], he is on Prozac 80 mg, Xanax 2 mg 4 times a day , with PMH of HTN, DM and Hyperlipidemia was brought to the ER by EMS secondary to witnessed seizure activity by patient's girlfriend. She reports acute onset of seizure activity while at home lasting approx 1 min. + post-ictal state. Upon arrival, to ER, pt AA&Ox4. Reports h/o Seizure in childhood, but no seizure activity for several years. While in ER, pt w/ 2nd seizure. Currently post-ictal. Per review of medications, pt on Lamictal. On arrival, BP 184/110, HR 74, O2 sat 98% on RA, Afebrile. Currently BP 189/97, HR 66. CBC unremarkable. Creatinine 1.38, previously 1.57 on 03/18/15. Urine Drug Screen positive for Benzo, s/p Ativan in ER. U/a negative. reports pt follows w/ Dr. Baker as outpatient. On Xanax at home w/ no changes to medications. CT Head w/ no acute findings. Patient is being followed by neurology. Consulted to psychiatry due to acute psychosis, active paranoia and disorganized behavior. Patient was seen for psychiatric evaluation in the ER, his restrained in 4 points due to agitation and disorganized behavior. He seems to be internally preoccupied, at times confused,perplexed, but he can answer most of our questions. He is oriented 3, however he laughs inappropriately continuously and is oddly related. He seems to be guarded and paranoid, looking continuously outside and asking "why does people out there keep looking at me, they want to hurt me!!". He denies depression, he denies anxiety, he says that he has been stable in his current psychotropic regimen that he follows strictly. He denies suicidal and homicidal ideation, he denies visual and auditory hallucinations. His ex- and his daughter, both at bedside, also his girlfriend over the phone in the speak, explains that this is the first time the patient has presented this picture. He tends to abuse alcohol, but he last drinks was most probably about a week ago. They say that the patient usually also abuse his anxiety medication and he sometimes drink alcohol along with the Xanax. The patient denies, family confirms, illegal drugs use. Review of Systems ROS Limitations: Altered Mental Status Past Family Social History Coded Allergies: No Known Allergies (Verified , 07/23/15) Active Scripts Hydrocodone-Acetaminophen (Lortab)5-325 Mg Tab1-2 Tab PO Q6H PRN (PAIN) #12 TAB Prov:Ernesto Ballesteros MD 07/21/16 Naproxen (Naprosyn)500 Mg Dtt810 Mg PO BID PRN (PAIN SCALE 1 TO 10) #20 TAB Prov:Ernesto Ballesteros MD 07/21/16 Reported Medications Lamotrigine 25 Mg Tab50 Mg PO BID #60 TAB Ref 0 07/20/16 Benazepril (Lotensin)40 Mg Tab40 Mg PO DAILY #30 TAB Ref 0 07/20/16 Metformin 1,000 Mg Tab1,000 Mg PO BIDPC #60 TAB Ref 0 With meals 07/20/16 Pantoprazole (Protonix)40 Mg Tab40 Mg PO DAILY #30 TAB Ref 0 07/20/16 Insulin Aspart Inj (Novolog Inj)1,000 Unit/10 Ml Vial SQ DIRECTED #10 ML Ref 0 Sliding Scale as directed. 07/20/16 Fluoxetine (Prozac)40 Mg Cap80 Mg PO DAILY #30 CAP Ref 0 07/20/16 Bupropion HCl ER 12 HR (Wellbutrin SR 12 HR)150 Mg Sml119 Mg PO Q12HR Ref 0 07/20/16 Atorvastatin 20 Mg Tab20 Mg PO HS #30 TAB Ref 0 07/20/16 Alprazolam (Xanax)0.5 Mg Tab0.5 Mg PO Q6H PRN (ANXIETY) Ref 0 07/20/16 Discontinued Reported Medications Insulin Aspart (Novolog)100 Units/ML Inj Sq As Directed #10 Vial 03/18/15 Lamotrigine 25 Mg Tab50 Mg PO BID 03/18/15 Bupropion Hcl (Wellbutrin Sr)150 Mg Qjo016 Mg PO Q12H 03/18/15 Clonazepam (Clonazepam)1 Mg Tab2 Mg PO Q8 03/18/15 Fluoxetine Hcl (Prozac)20 Mg/5 Ml Liqd80 Mg PO DAILY 03/18/15 Pantoprazole Sod (Protonix)40 Mg Tabdr40 Mg PO DAILY 03/18/15 Atorvastatin 20 mg (Atorvastatin 20 mg tab)20 Mg Tab1 Tab PO HS 09/16/14 Metformin 850 Mg Tab1,000 Mg OR BID 11/03/10 Lotensin Kyh200 1 Tab PO DAILY 11/01/10 Lbiongf099 Mg 150 Mg Rro396 Mg PO HSPRN Ref 0 11/02/10 Discontinued Scripts Hydrocodone-Acetaminophen (Lortab)5-325 Mg Tab1-2 Tab PO Q6H PRN (PAIN) #12 TAB Prov:Ernesto Ballesteros MD 07/20/16 Naproxen (Naprosyn)500 Mg Cek395 Mg PO BID PRN (PAIN SCALE 1 TO 10) #20 TAB Prov:Ernesto Ballesteros MD 07/20/16 Ibuprofen (Motrin)600 Mg Rhn381 Mg PO QID #21 TAB GIVE WITH FOOD Prov:Amanda Lima MD 07/23/15 Hydrocodone/Acetaminophen 5 mg/325 mg 1 Tab1 Tab PO Q6H PRN (PAIN GREATER THAN 6 ) #12 TAB Prov:Amanda Lima MD 07/23/15 Current Medications Medications (Trade) Dose Ordered Sig/Anh Route Start Time Stop Time Status Last Admin (NS 1000 ml Inj) 1,000 ml @ 100 mls/hr Q10H IV 07/21/16 01:23 07/22/16 08:36 (NS Flush) 2 ml UNSCH PRN FLUSH 07/21/16 01:30 (NS Flush) 2 ml BID FLUSH 07/21/16 09:00 07/23/16 09:41 (Zofran Inj) 4 mg Q6H PRN IVP 07/21/16 01:30 (Dulcolax Supp) [address] 07/21/16 01:30 (Tylenol) 650 mg Q6H PRN PO 07/21/16 01:30 07/22/16 22:00 (Ativan Inj) 1 mg Q5M PRN IV PUSH 07/21/16 01:30 07/22/16 15:36 (D50w (Vial) Inj) 25 ml UNSCH PRN IV PUSH 07/21/16 01:30 (Glucagon Inj) 1 mg UNSCH PRN OTHER 07/21/16 01:30 (Xanax) 0.5 mg Q6H PRN PO 07/21/16 02:30 07/22/16 08:37 (Lipitor) 20 mg HS PO 07/21/16 21:00 07/22/16 22:00 (Prinivil) 40 mg DAILY PO 07/21/16 09:00 07/23/16 09:41 (PROzac) 80 mg DAILY PO 07/21/16 09:00 07/23/16 09:41 (Protonix) 40 mg DAILY PO 07/21/16 09:00 07/23/16 09:41 (Dilantin) 100 mg Q8HR PO 07/21/16 14:00 07/23/16 13:32 (Percocet 5-325 Mg) 1 tab Q6H PRN PO 07/21/16 17:30 (Percocet 10-325 Mg) 1 tab Q6H PRN PO 07/21/16 17:30 07/22/16 23:36 (LaMICtal) 100 mg BID PO 07/22/16 21:00 07/23/16 09:41 (Keppra) 1,000 mg Q12HR PO 07/22/16 21:00 07/23/16 09:41 (Ativan Inj) 1 mg Q3H PRN IV PUSH 07/23/16 00:45 07/23/16 13:32 (Folate) 1 mg DAILY PO 07/23/16 13:00 07/28/16 12:59 07/23/16 13:32 (Theragran M Tab) 1 tab DAILY PO 07/23/16 13:00 07/28/16 12:59 07/23/16 13:32 (Romazicon Inj) 0.2 mg Q1M PRN IV PUSH 07/23/16 13:00 (Ativan) 1 mg Q4H PRN PO 07/23/16 13:00 (Ativan Inj) 1 mg Q4H PRN IV PUSH 07/23/16 13:00 (Ativan) 2 mg Q2H PRN PO 07/23/16 13:00 (Ativan Inj) 2 mg Q2H PRN IV PUSH 07/23/16 13:00 (Ativan Inj) 2 mg Q1H PRN IV PUSH 07/23/16 13:00 Lorazepam 2 mg 2 mg Q15M PRN IV PUSH 07/23/16 13:00 (Thiamine Inj/NS Inj) 101 ml @ 100 mls/hr Q24H IV 07/24/16 09:00 07/27/16 08:59 (Vitamin B1) 100 mg DAILY PO 07/27/16 09:00 (Catapres) 0.1 mg Q6H PRN PO 07/23/16 13:45 (Haldol) 5 mg BID PO 07/23/16 14:45 UNV (Haldol Inj) 5 mg Q8HR PRN IM 07/23/16 16:00 UNV Family History He denies Social History He was born and raised in [place], He lives with his girlfriend [place], his divorce, he has 2 kids, he is unemployed, he is on SSI, he has a college education. Physical Exam Vital Signs Vital Signs Date Time Temp Pulse Resp B/P Pulse Ox O2 Delivery O2 Flow Rate FiO2 07/23/16 11:59 99.1 83 20 181/97 94 07/21/16 02:26 Nasal Cannula 2 I/O 07/22/16 07/22/16 07/23/16 08:00 16:00 00:00 Output Total 1600 ml 1100 ml Balance -1600 ml -1100 ml Mental Status Examination Appearance man, restrained in 4 point, age appearing, guarded, kind of oppositional, superficially cooperative Speech: Hesitant Orientation: x3 Memory: Unremarkable Thought Process: Loose Association, Tangential, Thought Blocking Thought Content: Paranoid Hallucination Type: None Attention and Concentration: Abnormal Suicidal Ideation: No Previous Suicide Attempts: No Homicidal Ideation: No Insight: Poor Judgement: Impulsive Affect: Irritable Mood: Angry, Oppositional Motor Activity: Normal gait Assessment & Plan Problem List: (1) Unspecified psychosis Assessment & Plan: Psychiatric evaluation the patient is poorly cooperative, restraint in 4 points due to agitation and disorganized behavior and speech, visible paranoia and persecutory delusions, oddly related, perplexed, with tangential thought, he is oriented 3 at the moment of this evaluation. He denies depression, anxiety, suicidal and homicidal ideation, visual and auditory hallucinations. There is not objective symptomatology of withdrawal at the moment of this evaluation. Current psychosis is started after seizure episode yesterday which suggest post ictal psychosis, however giving his history of alcohol and benzodiazepines abuse delirium due to withdrawal is also a possibility. At this moment the patient is floridly psychotic and could be a threat to self and others, he meets criteria for psychiatric admission for stabilization once medically clear. Will order Haldol 5 mg by mouth twice a day for acute psychosis, will order Haldol 5 mg IV every 8 hours when necessary aggressive behavior and agitation. Agree with CIWA protocol. Discussed with Dr. Sheppard the possibility of transferring the patient to MED/Psy unit. Extensive support, motivation psycho education provided. seizures and fall precaution. 1: 1 observation for safety. ICD Code: F29 Assessment & Plan Estimated LOS: days Cesario Reza MD Jul 23, 2016 14:49
[2016-07-23] MEDS: HALOPERIDOL 5 MG TAB PO SCH ×2 (15:30→21:36)
[2016-07-23 15:50] VITALS: BP 150/91; PULSE 94; RESP 20; TEMP 98.3; O2SAT 94
[2016-07-23 20:13] VITALS: BP 154/92; PULSE 84; RESP 18; TEMP 98.8; O2SAT 97
[2016-07-23] MEDS: oxyCODONE/ACETAMINOPHEN 10 MG/325 MG TAB PO PRN (21:36)
[2016-07-23] MEDS: ATORVASTATIN 20 MG TAB PO SCH (21:36)
[2016-07-24] VITALS (9 sets, daily range): BP systolic 131–180; BP diastolic 79–91; PULSE 68–90; RESP 16–19; TEMP 97–98.9; O2SAT 93–97
[2016-07-24] MEDS: oxyCODONE/ACETAMINOPHEN 10 MG/325 MG TAB PO PRN (03:02)
[2016-07-24] MEDS: PHENYTOIN SODIUM 100 MG CAP PO SCH ×3 (05:33→19:49)
[2016-07-24] MEDS: INSULIN ASPART SUPPLEMENTAL SCALE SQ SCH ×4 (05:49→19:49)
[2016-07-24 07:17] LABS: AUTOMATED NEUTROPHIL # 6.6 TH/MM3 (1.8-7.7); BASOPHIL % 0.3 % (0.0-2.0); EOSINOPHIL # 0.1 TH/MM3 (0-0.4); EOSINOPHIL % 0.5 % (0.0-4.0); HEMATOCRIT 39.9 % (39.0-51.0); HEMO FLAGS DIFF FINAL; LYMPH % 25.2 % (9.0-44.0); LYMPHOCYTE # 2.6 TH/MM3 (1.0-4.8); MEAN CELL VOLUME 92.7 FL (80.0-100.0); MEAN CORPUSCULAR HEMOGLOBIN 31.3 PG (27.0-34.0); MEAN CORPUSCULAR HGB CONC 33.8 % (32.0-36.0); MONO % 9.7 % (0.0-8.0); NEUT % 64.3 % (16.0-70.0); PLATELET COUNT 306 TH/MM3 (150-450); RED BLOOD COUNT 4.31 MIL/MM3 (4.50-5.90); RED CELL DISTRIBUTION WIDTH 13.2 % (11.6-17.2); WHITE BLOOD COUNT 10.3 TH/MM3 (4.0-11.0)
[2016-07-24 07:50] LABS: ALKALINE PHOSPHATASE 73 U/L (45-117); ALT (GPT) 39 U/L (12-78); ANION GAP 10 MEQ/L (5-15); AST (GOT) 23 U/L (15-37); BICARBONATE 26.9 MEQ/L (21.0-32.0); BLOOD UREA NITROGEN 15 MG/DL (7-18); CHLORIDE 100 MEQ/L (98-107); GLOMERULAR FILTRATION RATE 62 ML/MIN (>89); MAGNESIUM 1.7 MG/DL (1.5-2.5); SODIUM (NA) 137 MEQ/L (136-145); TOTAL BILIRUBIN ADULT 0.7 MG/DL (0.2-1.0)
[2016-07-24 08:01] LABS: POTASSIUM 2.8 MEQ/L (3.5-5.1)
[2016-07-24] MEDS ORDERED: POTASSIUM CHLORIDE 20 MEQ CONTROLLED RELEASE TAB PO ONE (08:15)
[2016-07-24] MEDS: THIAMINE INJ 100 MG in SODIUM CHLORIDE 0.9% INJ 100 ML IV SCH (08:54)
[2016-07-24] MEDS: SODIUM CHLORIDE 0.9% FLUSH 5 ML FLUSH FLUSH SCH ×2 (08:54→19:51)
[2016-07-24] MEDS: lamoTRIgine 100 MG TAB PO SCH ×2 (08:55→19:51)
[2016-07-24] MEDS: PANTOPRAZOLE SOD 40 MG DELAYED RELEASE TAB PO SCH (08:55)
[2016-07-24] MEDS: FOLIC ACID 1 MG TAB PO SCH (08:55)
[2016-07-24] MEDS: MULTIVITAMINS/MINERALS THERAPEUTIC TAB PO SCH (08:55)
[2016-07-24] MEDS: levETIRAcetam 500 MG TAB PO SCH ×2 (08:55→19:50)
[2016-07-24] MEDS: LISINOPRIL 20 MG TAB PO SCH (08:55)
[2016-07-24] MEDS: FLUoxetine HCL 20 MG CAP PO SCH (08:55)
[2016-07-24] MEDS: HALOPERIDOL 5 MG TAB PO SCH ×2 (08:56→19:51)
[2016-07-24] MEDS: SODIUM CHLOR 0.9% 1000 ML INJ 1,000 ML IV SCH (08:56)
--- NOTE | 2016-07-24 09:25 | HHI.PR ---
Subjective Remarks Follow-up for seizure and altered mental status. Patient seen with at bedside. Patient's states that he seems much better today. No seizures overnight. Oriented to self, place, time today. The patient does report some right knee pain from where he fell after a seizure. He is also having some constipation 1 week. He denies any chest pain, shortness breath, nausea, vomiting. Objective Vitals Vital Signs Date Time Temp Pulse Resp B/P Pulse Ox O2 Delivery O2 Flow Rate FiO2 07/24/16 08:19 72 07/24/16 07:27 97.0 73 18 180/89 93 07/24/16 04:04 16 07/24/16 04:00 98.9 88 18 176/79 97 07/24/16 00:07 90 07/24/16 00:00 98.0 68 18 131/86 97 07/23/16 20:13 98.8 84 18 154/92 97 07/23/16 15:50 98.3 94 20 150/91 94 07/23/16 11:59 99.1 83 20 181/97 94 Result Diagram: 07/24/16 0620 07/24/16 0620 Imaging Last Impressions Foot X-Ray 07/21/16 0000 Signed Impressions: Service Date/Time: Thursday, July 21, 2016 17:40 - CONCLUSION: No evidence of recent bony injury. Oneal Parisi MD Brain MRI 07/21/16 0000 Signed Impressions: Service Date/Time: Thursday, July 21, 2016 10:24 - CONCLUSION: Normal examination for a patient of this age. Axel Hernandez MD Head CT 07/20/16 0000 Signed Impressions: Service Date/Time: Wednesday, July 20, 2016 22:06 - CONCLUSION: Slight atrophic changes without any evidence for acute hemorrhage or mass effect. Pao Adame MD Objective Remarks GENERAL: Well-developed well-nourished. In no acute distress. SKIN: Warm and dry. Superficial abrasion right knee. HEENT: Normocephalic. Pupils equal and round. Mucous membranes pink and moist. CARDIOVASCULAR: Regular rate and rhythm. No murmur appreciated. RESPIRATORY: No accessory muscle use. Clear to auscultation. Breath sounds equal bilaterally. GASTROINTESTINAL: Abdomen soft, non-tender, nondistended. Bowel sounds x4. MUSCULOSKELETAL: Right knee tender to palpation and painful ROM. No TTP right hip. No clubbing or cyanosis. No edema. NEUROLOGICAL: Awake and alert. No focal neurological deficits. Moves upper and lower extremities spontaneously. Normal speech. PSYCHIATRIC: Odd mood and affect; insight and judgment fair to normal. A/P Problem List: (1) Seizure ICD Code: R56.9 Status: Acute (2) HTN (hypertension) ICD Code: I10 Status: Acute (3) DM (diabetes mellitus) ICD Code: E11.9 Status: Chronic (4) Unspecified psychosis ICD Code: F29 Status: Acute Assessment and Plan 56-year-old male with PMH of HTN, Anxiety, Depression, DM and HLD was brought by EMS secondary to witnessed seizure activity by patient's , lasted 1 minute, was postictal, then had another seizure in ER. Seizures: h/o childhood seizures per report, none in many years. Seizure x2 witnessed. S/p Cerebyx 1gm IV x1. CT Head w/ no acute findings. U/a negative, UDS positive for Benzo. Seizure Precautions, Ativan prn.. Consulted neurology, seen by Dr. Carvalho. Brain MRI unremarkable. EEG abnormal with intermittent sharp/ spike discharges bilaterally, possible L > R, suggestive of epileptiform abnormality. Continue on Dilantin 100mg po tid. Phenytoin level therapeutic. Patient with another witnessed seizure 07/22, Dr. Carvalho recommended loading with 1G IV Keppra, then started on Keppra 1000mg po bid and increased home Lamictal to 100mg bid. No further seizures. Alcohol Withdrawal, suspected Delirium Tremens: patient reports drinking a pint of [place] daily. Continue CIWA protocol, Thiamine/Folate/MV replacement. Seizure precautions. Anxiety/Depression with Psychosis: poor appetite/insomnia; suicidal/homicidal ideations per family, disoriented. Follows with Dr. Calhoun as outpatient. Continue Wellbutrin, Prozac, Xanax prn. Consulted psychiatry, started Haldol. Patient improving, discuss with Dr. Reza, patient cleared from psychiatry perspective. Metabolic Encephalopathy: Improving. Suspect multifactorial with DTs, seizures and post-ictal state, and acute psychosis. Treating as above. Neuro checks. DM: Sliding scale w/ Accu-Cheks. Hold Metformin for now. HTN: BP labile, but still uncontrolled. Continue Benazepril. Stop IVF. Start amlodipine. Clonidine and IV Vasotec as needed. Monitor BP. Hypokalemia: Potassium 2.8, replace orally. Magnesium within normal limits. Right knee pain: After trauma from seizure. Check x-ray. DVT Prophylaxis: SCD/Teds. Written by Saúl London, acting as scribe for Dr. Sheppard on 07/24/16 at 09:25. The documentation accurately reflects the work performed [id number] by me Dr. Sheppard on 07/24/16 at 09:25. Discharge Planning Disposition pending clinical course. Improving, possible discharge 12 days. Problem Qualifiers (1) HTN (hypertension): Qualified Code: I10 - Essential hypertension Saúl London Jul 24, 2016 09:25 Shoshana Sheppard MD Jul 24, 2016 14:08
[2016-07-24] MEDS ORDERED: MAGNESIUM HYDROXIDE SUSP 30 ML CUP PO ONE (09:30)
[2016-07-24] MEDS ORDERED: ENALAPRILAT 1.25 MG/ML VIAL IV PUSH PRN (10:30)
[2016-07-24] MEDS: DOCUSATE SODIUM 50 MG/SENNA 8.6 MG TAB PO SCH ×2 (10:41→20:01)
--- NOTE | 2016-07-24 10:43 | RADRPT ---
EXAM DATE/TIME: 07/24/2016 10:15 [place] COMPARISON: No previous studies available for comparison. INDICATIONS : Right knee pain after falling Saturday. MEDICAL HISTORY : Hypertension. Diabetes mellitus type II. Gastroesophageal reflux disease. Smoker. SURGICAL HISTORY : None. ENCOUNTER: Initial ACUITY: 4 - 6 days PAIN SCORE: 7/10 LOCATION: Right lateral knee FINDINGS: Four view examination of the right knee demonstrates no evidence of fracture or dislocation. Bony mi neralization is normal. The articular surfaces are intact. The suprapatellar soft tissues have a no rmal configuration. CONCLUSION: Unremarkable examination of the right knee. Ernesto Elam MD on July 24, 2016 at 10:42 Board Certified Radiologist. This report was verified electronically.
[2016-07-24] MEDS: ATORVASTATIN 20 MG TAB PO SCH (19:50)
[2016-07-24] MEDS: ALPRAZolam 0.5 MG TAB PO PRN (19:50)
[2016-07-25 04:52] VITALS: BP 144/86; PULSE 74; RESP 16; TEMP 99; O2SAT 96
[2016-07-25] MEDS: oxyCODONE/ACETAMINOPHEN 10 MG/325 MG TAB PO PRN ×2 (04:59→12:49)
[2016-07-25] MEDS: PHENYTOIN SODIUM 100 MG CAP PO SCH ×2 (04:59→16:35)
[2016-07-25] MEDS: INSULIN ASPART SUPPLEMENTAL SCALE SQ SCH ×3 (06:01→16:00)
[2016-07-25 08:00] VITALS: PULSE 70
[2016-07-25 08:45] VITALS: BP 166/101; PULSE 81; RESP 18; TEMP 98; O2SAT 95
--- NOTE | 2016-07-25 08:56 | HHI.PR ---
Review/Management Daily Summary seizure recurrence yesterday and confused, agitated today ex- and his daughter at bedside lives with girlfriend, hx of alcoholism possible etoh withdrawal, discussed with PA monitor, eeg abnormal continue seizure meds adjusted yesterday, welbutrin is a risk factor 07/25/2016 no other seizures girlfriend at bedside seen by psych continue current seizure meds ok to go home neuro rosario with f/u Dr Baker, his usual neurologist in 2 weeks Subjective Subjective Comments No acute events reported No headache No chest pain No dyspnea Active Medications Current Medications Medications (Trade) Dose Ordered Sig/Anh Route Start Time Stop Time Status Last Admin (NS Flush) 2 ml UNSCH PRN FLUSH 07/21/16 01:30 (NS Flush) 2 ml BID FLUSH 07/21/16 09:00 07/24/16 08:54 (Zofran Inj) 4 mg Q6H PRN IVP 07/21/16 01:30 (Dulcolax Supp) 10 mg DAILY PRN [place] 07/21/16 01:30 (Tylenol) 650 mg Q6H PRN PO 07/21/16 01:30 07/22/16 22:00 (Ativan Inj) 1 mg Q5M PRN IV PUSH 07/21/16 01:30 07/22/16 15:36 (D50w (Vial) Inj) 25 ml UNSCH PRN IV PUSH 07/21/16 01:30 (Glucagon Inj) 1 mg UNSCH PRN OTHER 07/21/16 01:30 (Xanax) 0.5 mg Q6H PRN PO 07/21/16 02:30 07/24/16 19:50 (Lipitor) 20 mg HS PO 07/21/16 21:00 07/24/16 19:50 (Prinivil) 40 mg DAILY PO 07/21/16 09:00 07/24/16 08:55 (PROzac) 80 mg DAILY PO 07/21/16 09:00 07/24/16 08:55 (Protonix) 40 mg DAILY PO 07/21/16 09:00 07/24/16 08:55 (Dilantin) 100 mg Q8HR PO 07/21/16 14:00 07/25/16 04:59 (Percocet 5-325 Mg) 1 tab Q6H PRN PO 07/21/16 17:30 (Percocet 10-325 Mg) 1 tab Q6H PRN PO 07/21/16 17:30 07/25/16 04:59 (LaMICtal) 100 mg BID PO 07/22/16 21:00 07/24/16 19:51 (Keppra) 1,000 mg Q12HR PO 07/22/16 21:00 07/24/16 19:50 (Ativan Inj) 1 mg Q3H PRN IV PUSH 07/23/16 00:45 07/23/16 13:32 (Folate) 1 mg DAILY PO 07/23/16 13:00 07/28/16 12:59 07/24/16 08:55 (Theragran M Tab) 1 tab DAILY PO 07/23/16 13:00 07/28/16 12:59 07/24/16 08:55 (Romazicon Inj) 0.2 mg Q1M PRN IV PUSH 07/23/16 13:00 (Ativan) 1 mg Q4H PRN PO 07/23/16 13:00 07/25/16 05:04 (Ativan Inj) 1 mg Q4H PRN IV PUSH 07/23/16 13:00 (Ativan) 2 mg Q2H PRN PO 07/23/16 13:00 07/24/16 20:00 (Ativan Inj) 2 mg Q2H PRN IV PUSH 07/23/16 13:00 (Ativan Inj) 2 mg Q1H PRN IV PUSH 07/23/16 13:00 Lorazepam 2 mg 2 mg Q15M PRN IV PUSH 07/23/16 13:00 (Thiamine Inj/NS Inj) 101 ml @ 100 mls/hr Q24H IV 07/24/16 09:00 07/27/16 08:59 07/24/16 08:54 (Vitamin B1) 100 mg DAILY PO 07/27/16 09:00 (Catapres) 0.1 mg Q6H PRN PO 07/23/16 13:45 (Haldol) 5 mg BID PO 07/23/16 14:45 07/24/16 19:51 (Haldol Inj) 5 mg Q8HR PRN IM 07/23/16 16:00 (Alysa-Colace) 1 tab BID PO 07/24/16 09:30 07/24/16 10:41 (Vasotec Inj) 1.25 mg Q6H PRN IV PUSH 07/24/16 10:30 (Norvasc) 5 mg DAILY PO 07/25/16 09:00 Allergies Allergies Coded Allergies No Known Allergies (Verified07/23/15) Exam I&O / VS Vital Signs Date Time Temp Pulse Resp B/P Pulse Ox O2 Delivery O2 Flow Rate FiO2 07/25/16 08:45 98.0 81 18 166/101 95 07/25/16 06:01 16 07/25/16 04:52 99.0 74 16 144/86 96 07/24/16 23:10 98.0 71 16 148/84 96 07/24/16 22:10 82 07/24/16 19:22 98.3 84 19 161/85 96 07/24/16 11:30 97.8 74 18 135/91 94 Objective Micro and Labs Laboratory Tests Test 07/22/16 07/24/16 20:46 06:20 Potassium Level 3.2 MEQ/L 2.8 MEQ/L (3.5-5.1) (3.5-5.1) Estimat Glomerular Filtration 69 ML/MIN (>89) 62 ML/MIN (>89) Rate Random Glucose 120 MG/DL 119 MG/DL (74-106) (74-106) Magnesium Level 1.4 MG/DL (1.5-2.5) Red Blood Count 4.31 MIL/MM3 (4.50-5.90) Mean Platelet Volume 6.9 FL (7.0-11.0) Monocytes (%) (Auto) 9.7 % (0.0-8.0) Monocytes # (Auto) 1.0 TH/MM3 (0-0.9) Colby Carvalho MD Jul 25, 2016 08:56
[2016-07-25] MEDS: SODIUM CHLORIDE 0.9% FLUSH 5 ML FLUSH FLUSH SCH (09:00)
[2016-07-25] MEDS ORDERED: amLODIPine BESYLATE 5 MG TAB PO SCH (09:00)
[2016-07-25] MEDS: MULTIVITAMINS/MINERALS THERAPEUTIC TAB PO SCH (09:19)
[2016-07-25] MEDS: lamoTRIgine 100 MG TAB PO SCH (09:19)
[2016-07-25] MEDS: PANTOPRAZOLE SOD 40 MG DELAYED RELEASE TAB PO SCH (09:19)
[2016-07-25] MEDS: FLUoxetine HCL 20 MG CAP PO SCH (09:21)
[2016-07-25] MEDS: LISINOPRIL 20 MG TAB PO SCH (09:22)
[2016-07-25] MEDS: DOCUSATE SODIUM 50 MG/SENNA 8.6 MG TAB PO SCH (09:22)
[2016-07-25] MEDS: FOLIC ACID 1 MG TAB PO SCH (09:22)
[2016-07-25] MEDS: levETIRAcetam 500 MG TAB PO SCH (09:23)
[2016-07-25] MEDS: HALOPERIDOL 5 MG TAB PO SCH (09:35)
[2016-07-25] MEDS ORDERED: LEVE500 PO (09:43)
[2016-07-25] MEDS ORDERED: HALO5TAB PO (09:43)
[2016-07-25] MEDS ORDERED: LAMO100 PO (09:43)
[2016-07-25] MEDS ORDERED: DILA100C PO (09:43)
[2016-07-25] MEDS ORDERED: AMLO5 PO (09:43)
--- NOTE | 2016-07-25 09:50 | HHI.DS ---
Discharge Summary Admission Date Jul 23, 2016 at 13:43 Discharge Date: Jul 25, 2016 Admitting Diagnosis seizure (1) Seizure ICD Code: R56.9 Diagnosis: Principal (2) HTN (hypertension) ICD Code: I10 Diagnosis: Secondary (3) DM (diabetes mellitus) ICD Code: E11.9 Diagnosis: Secondary (4) Unspecified psychosis ICD Code: F29 Diagnosis: Principal (5) Hypertension ICD Code: I10 Diagnosis: Secondary Procedures None Brief History - From Admission This is a 56-year-old male with PMH of HTN, Anxiety, DM and Hyperlipidemia was brought to the ER by EMS secondary to witnessed seizure activity by patient's . reports acute onset of seizure activity while at home lasting approx 1 min. +post-ictal state. Upon arrival, to ER, pt AA&Ox4. Reports h/o Seizure in childhood, but no seizure activity for several years. While in ER, pt w/ 2nd seizure. Currently post-ictal. Per review of medications, pt on Lamictal. On arrival, BP 184/110, HR 74, O2 sat 98% on RA, Afebrile. Currently BP 189/97, HR 66. CBC unremarkable. Creatinine 1.38, previously 1.57 on 03/18/15. Urine Drug Screen positive for Benzo, s/p Ativan in ER. U/a negative. reports pt follows w/ Dr. Baker as outpatient. On Xanax at home w/ no changes to medications. CT Head w/ no acute findings. CBC/BMP: 07/24/16 0620 07/24/16 0620 Significant Findings Laboratory Tests Test 07/22/16 07/24/16 20:46 06:20 Potassium Level 3.2 MEQ/L 2.8 MEQ/L (3.5-5.1) (3.5-5.1) Estimat Glomerular Filtration 69 ML/MIN (>89) 62 ML/MIN (>89) Rate Random Glucose 120 MG/DL 119 MG/DL (74-106) (74-106) Magnesium Level 1.4 MG/DL (1.5-2.5) Red Blood Count 4.31 MIL/MM3 (4.50-5.90) Mean Platelet Volume 6.9 FL (7.0-11.0) Monocytes (%) (Auto) 9.7 % (0.0-8.0) Monocytes # (Auto) 1.0 TH/MM3 (0-0.9) Imaging Last Impressions Knee X-Ray 07/24/16 0000 Signed Impressions: Service Date/Time: Sunday, July 24, 2016 10:15 - CONCLUSION: Unremarkable examination of the right knee. Ernesto Elam MD Foot X-Ray 07/21/16 0000 Signed Impressions: Service Date/Time: Thursday, July 21, 2016 17:40 - CONCLUSION: No evidence of recent bony injury. Oneal Parisi MD Brain MRI 07/21/16 0000 Signed Impressions: Service Date/Time: Thursday, July 21, 2016 10:24 - CONCLUSION: Normal examination for a patient of this age. Axel Hernandez MD Head CT 07/20/16 0000 Signed Impressions: Service Date/Time: Wednesday, July 20, 2016 22:06 - CONCLUSION: Slight atrophic changes without any evidence for acute hemorrhage or mass effect. Pao Adame MD PE at Discharge GENERAL: Well-developed well-nourished. In no acute distress. SKIN: Warm and dry. Superficial abrasion right knee. HEENT: Normocephalic. Pupils equal and round. Mucous membranes pink and moist. CARDIOVASCULAR: Regular rate and rhythm. No murmur appreciated. RESPIRATORY: No accessory muscle use. Clear to auscultation. Breath sounds equal bilaterally. GASTROINTESTINAL: Abdomen soft, non-tender, nondistended. Bowel sounds x4. MUSCULOSKELETAL: Right knee tender to palpation and painful ROM. No TTP right hip. No clubbing or cyanosis. No edema. NEUROLOGICAL: Awake and alert. No focal neurological deficits. Moves upper and lower extremities spontaneously. Normal speech. PSYCHIATRIC: Odd mood and affect; insight and judgment fair to normal. Pt update on day of discharge Patient seen with girlfriend at bedside. Hallucinations have resolved. The patient is back to his baseline. He feels much better today and looks much better today per girlfriend. No further seizures. He is cleared by neurology, follows with Dr. Baker as outpatient. He states that he did walk some in the room today unassisted, felt a little unsteady. He has a walker at home if needed. Normal BM. Anticipate discharge later today pending PT recommendations. Hospital Course 56-year-old male with PMH of HTN, Anxiety, Depression, DM and HLD was brought by EMS secondary to witnessed seizure activity by patient's , lasted 1 minute, was postictal, then had another seizure in ER. Seizures: h/o childhood seizures per report, none in many years. Seizure x2 witnessed. S/p Cerebyx 1gm IV x1. CT Head w/ no acute findings. U/a negative, UDS positive for Benzo. Seizure Precautions, Ativan prn.. Consulted neurology, seen by Dr. Carvalho. Brain MRI unremarkable. EEG abnormal with intermittent sharp/ spike discharges bilaterally, possible L > R, suggestive of epileptiform abnormality. Continue on Dilantin 100mg po tid. Phenytoin level therapeutic. Patient with another witnessed seizure 07/22, Dr. Carvalho recommended loading with 1G IV Keppra, then started on Keppra 1000mg po bid and increased home Lamictal to 100mg bid. No further seizures. Alcohol Withdrawal, suspected Delirium Tremens: patient reports drinking a pint of [employer] [place] daily. Covered with CIWA protocol, Thiamine/Folate/MV replacement during admission. Seizure precautions. Anxiety/Depression with Psychosis: poor appetite/insomnia; suicidal/homicidal ideations per family, disoriented. Follows with Dr. Calhoun as outpatient. Continue Wellbutrin, Prozac, Xanax prn. Consulted psychiatry, started Haldol. Patient improving, discussed with Dr. Reza, patient cleared from psychiatry perspective for outpatient psychiatry follow-up. Metabolic Encephalopathy: Suspect multifactorial with DTs, seizures, post-ictal state, and acute psychosis. Treating as above. Significantly improved. DM: Covered with Sliding scale w/ Accu-Cheks. Continue Metformin. HTN: BP better controlled after starting on amlodipine. Continue Benazepril. PCP follow-up. Hypokalemia: Potassium 2.8, replaced orally. Magnesium within normal limits. Right knee pain: After trauma from seizure. X-ray with no fracture. Pain control. Pt Condition on Discharge: Stable Discharge Disposition: Discharge Home Discharge Time: > 30 minutes Discharge Instructions DIET: Follow Instructions for: Heart Healthy Diet, Diabetic Diet Activities you can perform: Regular-No Restrictions Activities to Avoid: Driving Other Activity Instructions: PT recommends walker and outpatient physical therapy. Has walker at home, he uses walker for ambulation. Follow-up with PCP for outpatient PT referral. Follow up Referrals: Neurology - 10 Days with Gwyn Baker PhD, MD PCP Follow-up - 2-3 Days with Camden Coley MD Psychiatry Adult - 2 Weeks with Justus Calhoun M.d. New Medications: Amlodipine (Norvasc) 5 Mg Tab 5 MG PO DAILY Blood Pressure Management #30 TAB Haloperidol (Haloperidol) 5 Mg Tab 5 MG PO BID Psychosis #30 TAB Lamotrigine (Lamictal) 100 Mg Tab 100 MG PO BID Seizure Control #60 TAB Levetiracetam (Keppra) 500 Mg Tab 1000 MG PO Q12HR Seizure Control #120 TAB Phenytoin Extended (Dilantin) 100 Mg Cap 100 MG PO Q8HR Seizure Control #90 CAP Continued Medications: Alprazolam (Xanax) 0.5 Mg Tab 0.5 MG PO Q6H PRN ANXIETY Ref 0 TAB Atorvastatin (Atorvastatin) 20 Mg Tab 20 MG PO HS Cholesterol Management #30 Ref 0 TAB Benazepril (Lotensin) 40 Mg Tab 40 MG PO DAILY Blood Pressure Management #30 Ref 0 TAB Fluoxetine (Prozac) 40 Mg Cap 80 MG PO DAILY #30 Ref 0 CAP Hydrocodone-Acetaminophen (Lortab) 5-325 Mg Tab 1-2 TAB PO Q6H PRN PAIN #12 TAB Insulin Aspart Inj (Novolog Inj) 1,000 Unit/10 Ml Vial 0 SQ DIRECTED Sliding Scale as directed. Blood Sugar Management #10 Ref 0 ML Metformin (Metformin) 1,000 Mg Tab 1000 MG PO BIDPC With meals Blood Sugar Management #60 Ref 0 TAB Naproxen (Naprosyn) 500 Mg Tab 500 MG PO BID PRN PAIN SCALE 1 TO 10 #20 TAB Pantoprazole (Protonix) 40 Mg Tab 40 MG PO DAILY Reflux #30 Ref 0 TAB Discontinued Medications: Bupropion HCl ER 12 HR (Wellbutrin SR 12 HR) 150 Mg Tab 150 MG PO Q12HR Control Depression Ref 0 TAB Lamotrigine (Lamotrigine) 25 Mg Tab 50 MG PO BID Control Seizures #60 Ref 0 TAB Additional Information Written by Saúl London, acting as scribe for Dr. Sheppard on 07/25/16 at 09:50. The documentation accurately reflects the work performed [id number] by me Dr. Sheppard on 07/25/16 at 09:50. Saúl London Jul 25, 2016 09:50 Shoshana Sheppard MD Jul 25, 2016 13:30
[2016-07-25 12:36] VITALS: BP 158/96; RESP 23; TEMP 98; O2SAT 98
[2016-07-25] MEDS: THIAMINE INJ 100 MG in SODIUM CHLORIDE 0.9% INJ 100 ML IV SCH (12:52)
[2016-07-25 16:00] VITALS: BP 137/86; PULSE 69; RESP 18; TEMP 99; O2SAT 96
[2016-07-27] MEDS ORDERED: THIAMINE HCL 100 MG TAB PO SCH (09:00)
== END 2016-07-25 18:44 | disposition home or self-care (01) | DRG 100 ==
LOC: NEPE 21:52 → INTOOBSV 07-21 01:20 → NEDA 07-21 01:20 → NEPGCP 07-21 03:23 → OBSVTOIN 07-23 13:43
PROVIDERS: ADMIT Hospitalist; ATTEND Hospitalist
DX: R56.9 Unspecified convulsions (principal); G93.41 Metabolic encephalopathy; R45.850 Homicidal ideations; R45.851 Suicidal ideations; F10.239 Alcohol dependence with withdrawal, unspecified; F23 Brief psychotic disorder; I10 Essential (primary) hypertension; E11.9 Type 2 diabetes mellitus without complications; E78.5 Hyperlipidemia, unspecified; E87.6 Hypokalemia; G47.00 Insomnia, unspecified; K59.00 Constipation, unspecified; F41.8 Other specified anxiety disorders; F17.200 Nicotine dependence, unspecified, uncomplicated; Z96.641 Presence of right artificial hip joint
CPT/HCPCS: 70450; 70553; 73564; 73630; 76937; 80048; 80053; 80185; 80307; 80320; 81001; 82948; 83735; 84443; 85025; 93005; 95819; 96361; 96374; A9579; G0378; J1815; J1953; J2060; J3411; J7030; Q2009

== ENCOUNTER 2016-08-09 12:02 | Inpatient (IN) | payer OTHER, MEDICARE ==
[~2016-08-09] VITALS: Ht 188 cm; Wt 98.6 kg
[2016-08-09] VITALS (10 sets, daily range): BP systolic 126–150; BP diastolic 77–97; PULSE 75–112; RESP 16–24; TEMP 98–98.4; O2SAT 94–98
[~2016-08-09 12:02] MED LIST changes: +ALPR.5 PO; +AMLO5 PO; -ATOR20TA PO; +ATOR20TA15 PO; -CLON1TAB PO; +DILA100C PO; -FLUO20SO3 PO; +HALO5TAB PO; +HYDR-3533 PO; -IBUP-232 PO; +LAMO100 PO; -LAMO25TA PO; +LEVE500 PO; -LORTA5 PO; -LOTE20TA3 PO; +LOTE40TA PO; +METF1000 PO; -METF850T OR; +NAPR500 PO; +PROZ40CA PO; -TRAZ150T2 PO; -WELL150T PO
[2016-08-09] MEDS ORDERED: SODIUM CHLORIDE 0.9% FLUSH 5 ML FLUSH IVF PRN (12:30)
--- NOTE | 2016-08-09 12:47 | PD ---
HPI Chief Complaint: Seizure Time Seen by Provider: 12:40 Travel History International Travel<30 days: No Contact w/Intl Traveler<30days: No Traveled to known affect area: No History of Present Illness HPI 56-year-old male with history of seizures, anxiety, depression, psychosis, currently on Lamictal, and Right and Dilantin for seizures. He is on benzodiazepine on a chronic basis. He states that he has not had any changes in these medications. His states that the Lamictal has been increased by his psychiatrist when they got it refilled a few months ago. He apparently has had difficulty with ambulating since the change and Lamictal. He had a decrease in dose done in the ER several weeks ago. He is here because he has been having 3 days of lightheadedness, nausea, and tremors. He had talked to his primary care physician and was sent in for further evaluation. He denies any new seizures. He denies any vomiting, fevers, or any other symptoms. His is concerned because she is wondering whether these could be side effects of the Lamictal. Apparently, patient had gone from 50 mg 250 mg a few months ago and then was decreased to 100 mg. Modifying Factors: Possible medication change Associated Signs & Symptoms: Tremors, nausea, lightheadedness Risk Factors: Seizure history PFSH Past Medical History Arthritis: No Asthma: No Autoimmune Disease: No Blood Disorders: No Anxiety: Yes Depression: Yes Heart Rhythm Problems: No Cancer: No Cardiovascular Problems: Yes High Cholesterol: Yes Chemotherapy: No Chest Pain: No Congestive Heart Failure: No COPD: No Cerebrovascular Accident: No Diabetes: Yes Patient Takes Glucophage: Yes Diminished Hearing: No Endocrine: No Gastrointestinal Disorders: Yes GERD: Yes Glaucoma: No Genitourinary: No Headaches: No Hepatitis: No Hiatal Hernia: No Hypertension: Yes Immune Disorder: No Implanted Vascular Access Dvce: Yes (LEFT HIP ) Kidney Stones: No Musculoskeletal: Yes (HIP REPLACEMENT) Neurologic: Yes (SEIZURES) Psychiatric: Yes Reproductive: No Respiratory: No Immunizations Current: Yes Migraines: No Myocardial Infarction: No Radiation Therapy: No Renal Failure: No Seizures: No Sickle Cell Disease: No Sleep Apnea: No Thyroid Disease: No Ulcer: No PNEUMOCCOCAL Vaccine (Year): 3 Past Surgical History Abdominal Surgery: No AICD: No Appendectomy: No Arteriovenous Shunt: No Cardiac Surgery: No Cholecystectomy: No Ear Surgery: No Endocrine Surgery: No Eye Surgery: No Genitourinary Surgery: No Gynecologic Surgery: No Insulin Pump: No Joint Replacement: Yes (HIP RT WITH PLATE ) Oral Surgery: Yes (WISDOM TEETH REMOVED.) Pacemaker: No Thoracic Surgery: No Tonsillectomy: Yes Other Surgery: Yes (tens unit) Social History Alcohol Use: No Tobacco Use: Yes (06/25 PPD) Substance Use: No Allergies-Medications (Allergen,Severity, Reaction): Coded Allergies: No Known Allergies (Verified , 08/09/16) Reported Meds & Prescriptions Reported Meds & Active Scripts Active Haloperidol 5 Mg Tab 5 Mg PO BID Dilantin (Phenytoin Extended) 100 Mg Cap 100 Mg PO Q8HR Keppra (Levetiracetam) 500 Mg Tab 1,000 Mg PO Q12HR Reported Hyoscyamine (Hyoscyamine Sulfate) 0.125 Mg Tab 0.125 Mg PO DAILY Zofran (Ondansetron HCl) 8 Mg Tab 8 Mg PO Q8HR PRN Magnesium Oxide 400 Mg Tab 400 Mg PO DAILY Metoprolol Tartrate 100 Mg Tab 100 Mg PO BID Hydrochlorothiazide 25 Mg Tab 25 Mg PO DAILY K-Tab (Potassium Chloride) 20 Meq Tab 20 Meq PO DAILY Buspirone (Buspirone HCl) 5 Mg Tab 5 Mg PO TID Lamictal (Lamotrigine) 100 Mg Tab 100 Mg PO BID Benazepril (Benazepril HCl) 20 Mg Tab 20 Mg PO BID Amlodipine (Amlodipine Besylate) 5 Mg Tab 5 Mg PO BID Atorvastatin (Atorvastatin Calcium) 40 Mg Tab 40 Mg PO HS Alprazolam 2 Mg Tab 2 Mg PO QID Metformin (Metformin HCl) 1,000 Mg Tab 1,000 Mg PO BIDPC With meals Protonix (Pantoprazole Sodium) 40 Mg Tab 40 Mg PO DAILY Novolog Inj (Insulin Aspart) 1,000 Unit/10 Ml Vial 4 Units SQ DAILY Sliding Scale as directed. Prozac (Fluoxetine HCl) 40 Mg Cap 80 Mg PO DAILY Review of Systems Except as stated in HPI: all other systems reviewed are Neg Physical Exam Narrative GENERAL: Well-nourished, well-developed middle age white male patient in no acute distress. Awake, alert, oriented 3. Notable for tremors. SKIN: Warm and dry. HEAD: Normocephalic. EYES: No scleral icterus. No injection or drainage. NECK: Supple, trachea midline. CARDIOVASCULAR: Regular rate and rhythm without murmurs, gallops, or rubs. RESPIRATORY: Breath sounds equal bilaterally. No accessory muscle use. GASTROINTESTINAL: Abdomen soft, non-tender, nondistended. MUSCULOSKELETAL: No cyanosis, or edema. BACK: Nontender without obvious deformity. No CVA tenderness. NEUROLOGICAL: Awake and alert. Cranial nerves II through XII intact. Motor and sensory grossly within normal limits. Five out of 5 muscle strength in all muscle groups. Normal speech. Data Data Last Documented VS Vital Signs Date Time Temp Pulse Resp B/P Pulse Ox O2 Delivery O2 Flow Rate FiO2 08/09/16 12:42 18 97 Room Air 08/09/16 12:05 98.0 112 137/84 Orders Complete Blood Count With Diff (08/09/16 12:30) Phenytoin (Dilantin) (08/09/16 12:30) Blood Glucose (08/09/16 12:30) Ecg Monitoring (08/09/16 12:30) Iv Access Insert/Monitor (08/09/16 12:30) Oximetry (08/09/16 12:30) Comprehensive Metabolic Panel (08/09/16 12:30) Sodium Chloride 0.9% Flush (Ns Flush) (08/09/16 12:30) Lamictal (Lamotrigine) (08/09/16 12:49) Electrocardiogram (08/09/16 12:50) Sodium Chlor 0.9% 1000 Ml Inj (Ns 1000 M (08/09/16 14:15) Drug Screen, Random Urine (08/09/16 15:34) Admit Order (Ed Use Only) (08/09/16 15:38) Labs Laboratory Tests Test 08/09/16 10:40 White Blood Count 14.8 TH/MM3 Red Blood Count 4.72 MIL/MM3 Hemoglobin 14.3 GM/DL Hematocrit 43.1 % Mean Corpuscular Volume 91.3 FL Mean Corpuscular Hemoglobin 30.2 PG Mean Corpuscular Hemoglobin 33.1 % Concent Red Cell Distribution Width 13.4 % Platelet Count 449 TH/MM3 Mean Platelet Volume 8.3 FL Neutrophils (%) (Auto) 57.8 % Lymphocytes (%) (Auto) 33.2 % Monocytes (%) (Auto) 7.1 % Eosinophils (%) (Auto) 1.3 % Basophils (%) (Auto) 0.6 % Neutrophils # (Auto) 8.6 TH/MM3 Lymphocytes # (Auto) 4.9 TH/MM3 Monocytes # (Auto) 1.1 TH/MM3 Eosinophils # (Auto) 0.2 TH/MM3 Basophils # (Auto) 0.1 TH/MM3 CBC Comment AUTO DIFF Differential Comment AUTO DIFF CONFIRMED Platelet Estimate NORMAL Platelet Morphology Comment NORMAL Sodium Level 123 MEQ/L Potassium Level 4.2 MEQ/L Chloride Level 85 MEQ/L Carbon Dioxide Level 25.5 MEQ/L Anion Gap 13 MEQ/L Blood Urea Nitrogen 14 MG/DL Creatinine 1.36 MG/DL Estimat Glomerular Filtration 54 ML/MIN Rate Random Glucose 151 MG/DL Calcium Level 9.2 MG/DL Total Bilirubin 0.3 MG/DL Aspartate Amino Transf 29 U/L (AST/SGOT) Alanine Aminotransferase 62 U/L (ALT/SGPT) Alkaline Phosphatase 92 U/L Total Protein 7.4 GM/DL Albumin 3.7 GM/DL Phenytoin (Dilantin) Level 4.8 MCG/ML MDM Medical Decision Making Medical Screen Exam Complete: Yes Emergency Medical Condition: Yes Medical Record Reviewed: Yes Interpretation(s) Laboratory Tests Test 08/09/16 10:40 White Blood Count 14.8 TH/MM3 (4.0-11.0) Neutrophils # (Auto) 8.6 TH/MM3 (1.8-7.7) Lymphocytes # (Auto) 4.9 TH/MM3 (1.0-4.8) Monocytes # (Auto) 1.1 TH/MM3 (0-0.9) Sodium Level 123 MEQ/L (136-145) Chloride Level 85 MEQ/L (98-107) Creatinine 1.36 MG/DL (0.60-1.30) Estimat Glomerular Filtration 54 ML/MIN (>89) Rate Random Glucose 151 MG/DL (74-106) Phenytoin (Dilantin) Level 4.8 MCG/ML (10.0-20.0) Differential Diagnosis Tremors, nausea, lightheadednessdehydration versus metabolic issues versus medication side effects Narrative Course Lab work returns showing significant hyponatremia. IV fluids were given in the ER. My plan would be to admit the patient for further treatment. Case is discussed with Dr. Ceja for admission. Diagnosis Primary Impression: Hyponatremia Admitting Information Admitting Physician Requests: Admit Amanda Lima MD Aug 09, 2016 12:47
[2016-08-09 12:59] LABS: AUTOMATED NEUTROPHIL # 8.6 TH/MM3 (1.8-7.7); BASOPHIL # 0.1 TH/MM3 (0-0.2); BASOPHIL % 0.6 % (0.0-2.0); EOSINOPHIL # 0.2 TH/MM3 (0-0.4); EOSINOPHIL % 1.3 % (0.0-4.0); HEMATOCRIT 43.1 % (39.0-51.0); LYMPH % 33.2 % (9.0-44.0); LYMPHOCYTE # 4.9 TH/MM3 (1.0-4.8); MEAN CELL VOLUME 91.3 FL (80.0-100.0); MEAN CORPUSCULAR HEMOGLOBIN 30.2 PG (27.0-34.0); MEAN CORPUSCULAR HGB CONC 33.1 % (32.0-36.0); MONO % 7.1 % (0.0-8.0); NEUT % 57.8 % (16.0-70.0); PLATELET COUNT 449 TH/MM3 (150-450); RED BLOOD COUNT 4.72 MIL/MM3 (4.50-5.90); RED CELL DISTRIBUTION WIDTH 13.4 % (11.6-17.2); WHITE BLOOD COUNT 14.8 TH/MM3 (4.0-11.0)
[2016-08-09] MEDS ORDERED: ATOR40TA16 PO (13:01)
[2016-08-09] MEDS ORDERED: ALPR2TAB3 PO (13:01)
[2016-08-09] MEDS ORDERED: AMLO5TAB2 PO (13:01)
[2016-08-09] MEDS ORDERED: BENA20TA PO (13:03)
[2016-08-09] MEDS ORDERED: LAMO100 PO (13:09)
[2016-08-09] MEDS ORDERED: BUSP5TAB PO (13:12)
[2016-08-09 13:13] LABS: HEMO FLAGS AUTO DIFF
[2016-08-09] MEDS ORDERED: ZOFR8TAB PO (13:22)
[2016-08-09] MEDS ORDERED: POTA1TAB4 PO (13:22)
[2016-08-09] MEDS ORDERED: HYOS0.128 PO (13:22)
[2016-08-09] MEDS ORDERED: METO100T PO (13:22)
[2016-08-09] MEDS ORDERED: MAGN400T2 PO (13:22)
[2016-08-09] MEDS ORDERED: HYDR25TA5 PO (13:22)
[2016-08-09 13:47] LABS: PLATELET ESTIMATE SMEAR NORMAL (NORMAL); PLATELET MORPHOLOGY NORMAL (NORMAL); SCAN/DIFF AUTO DIFF CONFIRMED
[2016-08-09 14:03] LABS: ANION GAP 13 MEQ/L (5-15); AST (GOT) 29 U/L (15-37); BICARBONATE 25.5 MEQ/L (21.0-32.0); BLOOD UREA NITROGEN 14 MG/DL (7-18); CHLORIDE 85 MEQ/L (98-107); GLOMERULAR FILTRATION RATE 54 ML/MIN (>89); POTASSIUM 4.2 MEQ/L (3.5-5.1)
[2016-08-09 14:05] LABS: ALKALINE PHOSPHATASE 92 U/L (45-117); ALT (GPT) 62 U/L (12-78); TOTAL BILIRUBIN ADULT 0.3 MG/DL (0.2-1.0)
[2016-08-09 14:06] LABS: SODIUM (NA) 123 MEQ/L (136-145)
[2016-08-09] MEDS ORDERED: SODIUM CHLOR 0.9% 1000 ML INJ 1,000 ML IV ONE (14:15)
--- NOTE | 2016-08-09 16:21 | HHI.HP ---
[facility] Primary Care Physician Camden Coley MD Admission Diagnosis tremors/hyponatremia Diagnoses: Chief Complaint: Weakness, nausea, tremors Travel History International Travel<30 Days: No Contact w/Intl Traveler <30 Da: No Traveled to Known Affected Are: No History of Present Illness Patient is a 56-year-old male with history of recent seizure ff by Dr. Baker, history of anxiety disorder followed by Dr. Calhoun . Patient states that he woke up at around 2 AM this morning feeling sick to the stomach and shaking on both sides "tremors" feeling lightheaded. He denies any recent fever diarrhea abdominal pain neck pain headache. Patient is awake alert all this time when he feels these "tremors". On further history patient states history of anxiety/panic attack chronically on benzos. He sees Dr. Calhoun and his Lamictal was also recently increased and adjusted. He was admitted here a few weeks ago for the same problem/condition and on workup shows an EEG that was positive epileptiform abnormality on the temporal region left greater than right. On evaluation here at the ER also showed the sodium level of 123. Patient denies any diarrhea chronic nausea or vomiting or diarrhea. Review of Systems Constitutional: DENIES: Diaphoretic episodes, Fatigue, Fever, Weight gain, Weight loss, Chills, Dizziness, Change in appetite, Night Sweats Endocrine: DENIES: Heat/cold intolerance, Polydipsia, Polyuria, Polyphagia Eyes: DENIES: Blurred vision, Diplopia, Eye inflammation, Eye pain, Vision loss , Photosensitivity, Double Vision Ears, nose, mouth, throat: DENIES: Tinnitus, Hearing loss, Vertigo, Nasal discharge, Oral lesions, Throat pain, Hoarseness, Ear Pain, Running Nose, Epistaxis, Sinus Pain, Toothache, Odynophagia Respiratory: DENIES: Apneas, Cough, Snoring, Wheezing, Hemoptysis, Sputum production, Shortness of breath Cardiovascular: DENIES: Chest pain, Palpitations, Syncope, Dyspnea on Exertion , PND, Lower Extremity Edema, Orthopnea, Claudication Gastrointestinal: COMPLAINS OF: Nausea Genitourinary: DENIES: Sexual dysfunction, Urinary frequency, Urinary incontinence, Urgency, Hematuria, Dysuria, Nocturia, Penile Discharge, Testicular Pain, Testicular Swelling Musculoskeletal: DENIES: Joint pain, Muscle aches, Stiffness, Joint Swelling, Back pain, Neck pain Integumentary: DENIES: Abnormal pigmentation, Nail changes, Pruritus, Rash Hematologic/lymphatic: DENIES: Bruising, Lymphadenopathy Immunologic/allergic: DENIES: Eczema, Urticaria Neurologic: DENIES: Abnormal gait, Headache, Localized weakness, Paresthesias, Seizures, Speech Problems, Tremor, Poor Balance Psychiatric: COMPLAINS OF: Anxiety Past Family Social History Past Medical History Diabetes type 2 insulin-requiring Hypertension History of chronic pain History of seizure disorder History of anxiety/panic attacks. Past Surgical History Left shoulder surgery, right shoulder surgery Right hip replacement Back surgery with an KASSIE placement. Reported Medications Metformin Insulins Benazepril Lamictal Allergies: Coded Allergies: No Known Allergies (Verified , 08/09/16) Family History Noncontributory Social History Smokes 1 pack a Denies chronic alcohol abuse last drink was about 8 weeks ago Physical Exam Vital Signs Vital Signs Date Time Temp Pulse Resp B/P Pulse Ox O2 Delivery O2 Flow Rate FiO2 08/09/16 15:00 81 20 126/85 98 Room Air 08/09/16 13:30 92 20 126/77 96 Room Air 08/09/16 12:42 18 97 Room Air 08/09/16 12:26 18 98 Room Air 08/09/16 12:05 98.0 112 24 137/84 97 Room Air Physical Exam GENERAL: This is a well-nourished, well-developed patient, in no apparent distress. Awake alert actually very cooperative and very interactive SKIN: No rashes, ecchymoses or lesions. Cool and dry. HEAD: Atraumatic. Normocephalic. No temporal or scalp tenderness. EYES: Pupils equal round and reactive. Extraocular motions intact. No scleral icterus. No injection or drainage. ENT: Nose without bleeding, purulent drainage or septal hematoma. Throat without erythema, Airway patent. NECK: Trachea midline. No JVD or lymphadenopathy. Supple, nontender, no meningeal signs. CARDIOVASCULAR: Regular rate and rhythm without murmurs, gallops, or rubs. RESPIRATORY: Clear to auscultation. Breath sounds equal bilaterally. No wheezes , rales, or rhonchi. GASTROINTESTINAL: Abdomen soft, non-tender, nondistended. No palpable masses. No guarding. MUSCULOSKELETAL: Extremities without clubbing, cyanosis, or edema. No joint tenderness, effusion, or edema noted. No calf tenderness. Negative Homans sign bilaterally. NEUROLOGICAL: Awake and alert. Cranial nerves II through XII intact. Motor and sensory grossly within normal limits. Five out of 5 muscle strength in all muscle groups. Normal speech. Laboratory Laboratory Tests Test 08/09/16 10:40 White Blood Count 14.8 Red Blood Count 4.72 Hemoglobin 14.3 Hematocrit 43.1 Mean Corpuscular Volume 91.3 Mean Corpuscular Hemoglobin 30.2 Mean Corpuscular Hemoglobin 33.1 Concent Red Cell Distribution Width 13.4 Platelet Count 449 Mean Platelet Volume 8.3 Neutrophils (%) (Auto) 57.8 Lymphocytes (%) (Auto) 33.2 Monocytes (%) (Auto) 7.1 Eosinophils (%) (Auto) 1.3 Basophils (%) (Auto) 0.6 Neutrophils # (Auto) 8.6 Lymphocytes # (Auto) 4.9 Monocytes # (Auto) 1.1 Eosinophils # (Auto) 0.2 Basophils # (Auto) 0.1 CBC Comment AUTO DIFF Differential Comment AUTO DIFF CONFIRMED Platelet Estimate NORMAL Platelet Morphology Comment NORMAL Sodium Level 123 Potassium Level 4.2 Chloride Level 85 Carbon Dioxide Level 25.5 Anion Gap 13 Blood Urea Nitrogen 14 Creatinine 1.36 Estimat Glomerular Filtration 54 Rate Random Glucose 151 Calcium Level 9.2 Total Bilirubin 0.3 Aspartate Amino Transf 29 (AST/SGOT) Alanine Aminotransferase 62 (ALT/SGPT) Alkaline Phosphatase 92 Total Protein 7.4 Albumin 3.7 Phenytoin (Dilantin) Level 4.8 Result Diagram: 08/09/16 1040 08/09/16 1040 Assessment and Plan Assessment and Plan 56-year-old male presenting with tremors lightheadedness history of seizure disorder EEG was positive for epileptiform activity on the temporal lobe area Continue on Keppra and Dilantin. Give 1 gm IV dilantin- level subtherapeutic We'll consult Dr. Baker Hyponatremia which can lower seizure threshold Check urine sodium. Start normal saline. Hold hydrochlorothiazide History of anxiety/panic attack patient Lamictal was recently increased unclear if this is related to the symptoms of lightheadedness We'll consult psychiatry History of diabetes type 2 will check that sugars 3 times a day at bedtime sliding scale insulins for now Acute kidney injury will start patient on hydration. Hold hydrochlorothiazide History of hypertension continue Benazepril. prn clonidine History of chronic pain when necessary pain meds Teds for DVT prophylaxis PPI for GI prophylaxis Physician Certification 2 Midnight Certification Type: Admission for Inpatient Services Order for Inpatient Services The services are ordered in accordance with Medicare regulations or non- Medicare payer requirements, as applicable. In the case of services not specified as inpatient-only, they are appropriately provided as inpatient services in accordance with the 2-midnight benchmark. Estimated LOS (days): 3 days is the estimated time the patient will need to remain in the hospital, assuming treatment plan goals are met and no additional complications. Post-Hospital Plan: Not yet determined Shiraz Ceja MD Aug 09, 2016 16:21 Shiraz Ceja MD Aug 09, 2016 16:21
[2016-08-09] MEDS ORDERED: PHENYTOIN INJ 1,000 MG in SODIUM CHLORIDE 0.9% INJ 100 ML IV ONE (17:00)
[2016-08-09] MEDS ORDERED: cloNIDine HCL 0.1 MG TAB PO PRN (17:00)
[2016-08-09] MEDS ORDERED: ALPRAZolam 1 MG TAB PO SCH (18:00)
[2016-08-09] MEDS: SODIUM CHLOR 0.9% 1000 ML INJ 1,000 ML IV SCH (18:30)
[2016-08-09] MEDS: ALPRAZolam 1 MG TAB PO SCH (18:30)
[2016-08-09] MEDS: busPIRone HCL 5 MG TAB PO SCH (18:30)
[2016-08-09] MEDS ORDERED: METOPROLOL TARTRATE 100 MG TAB PO SCH (21:00)
[2016-08-09] MEDS ORDERED: ACETAMINOPHEN/HYDROcodone 325 MG/5 MG TAB PO PRN (22:30)
[2016-08-09] MEDS: HALOPERIDOL 5 MG TAB PO SCH (22:31)
[2016-08-09] MEDS: LISINOPRIL 20 MG TAB PO SCH (22:31)
[2016-08-09] MEDS: amLODIPine BESYLATE 5 MG TAB PO SCH (22:31)
[2016-08-09] MEDS: PHENYTOIN SODIUM 100 MG CAP PO SCH (22:31)
[2016-08-09] MEDS: levETIRAcetam 500 MG TAB PO SCH (22:31)
[2016-08-09] MEDS: ATORVASTATIN 40 MG TAB PO SCH (22:32)
[2016-08-10 03:57] VITALS: BP 104/65; PULSE 75; RESP 19; TEMP 98.2; O2SAT 94
[2016-08-10] MEDS: PHENYTOIN SODIUM 100 MG CAP PO SCH ×3 (06:04→20:50)
[2016-08-10 07:53] VITALS: BP 124/86; PULSE 83; RESP 18; TEMP 97.4; O2SAT 98
[2016-08-10] MEDS: SODIUM CHLOR 0.9% 1000 ML INJ 1,000 ML IV SCH ×2 (07:59→22:41)
[2016-08-10 08:07] LABS: BICARBONATE 26.3 MEQ/L (21.0-32.0); POTASSIUM 3.6 MEQ/L (3.5-5.1)
[2016-08-10] MEDS: ACETAMINOPHEN/HYDROcodone 325 MG/5 MG TAB PO PRN ×2 (08:07→17:43)
[2016-08-10] MEDS: POTASSIUM CHLORIDE 20 MEQ CONTROLLED RELEASE TAB PO SCH (09:18)
[2016-08-10] MEDS: ALPRAZolam 1 MG TAB PO SCH ×3 (09:18→17:41)
[2016-08-10] MEDS: LISINOPRIL 20 MG TAB PO SCH ×2 (09:18→20:49)
[2016-08-10] MEDS: MAGNESIUM OXIDE 400 MG TAB PO SCH (09:18)
[2016-08-10] MEDS: HALOPERIDOL 5 MG TAB PO SCH ×2 (09:18→20:50)
[2016-08-10] MEDS: PANTOPRAZOLE SOD 40 MG DELAYED RELEASE TAB PO SCH (09:19)
[2016-08-10] MEDS: INSULIN ASPART 1,000 UNITS/10 ML VIAL SQ SCH (09:19)
[2016-08-10] MEDS: NICOTINE 14 MG/24 HR PATCH TD SCH (09:19)
[2016-08-10] MEDS: FLUoxetine HCL 20 MG CAP PO SCH (09:19)
[2016-08-10] MEDS: levETIRAcetam 500 MG TAB PO SCH ×2 (09:19→20:49)
[2016-08-10] MEDS: busPIRone HCL 5 MG TAB PO SCH ×3 (09:19→17:42)
[2016-08-10] MEDS: amLODIPine BESYLATE 5 MG TAB PO SCH ×2 (09:19→20:49)
[2016-08-10] MEDS: ONDANSETRON ODT 4 MG TAB PO PRN (11:37)
[2016-08-10 11:39] VITALS: BP 128/89; PULSE 87; RESP 18; O2SAT 95
--- NOTE | 2016-08-10 14:33 | PD.CONS ---
Provisional Diagnosis Admission Date Aug 09, 2016 at 15:40 Ryder I. History of depression and Anxiety, benzodiazepines use disorder, alcohol use disorder, Ryder II. Deferred Ryder III. Seizures, HTN, DM, chronic back pain Ryder IV. History of alcohol use disorder Ryder V. 55 History of Present Illness Service Psychiatry Consult Requested By Primary Care Physician Camden Coley MD HPI The patient is a 56-year-old man, domiciled, , with psychiatric history of depression, anxiety, he is under the care of Dr. Calhoun in [place], he says that he is on Xanax 2 mg 4 times per day, Prozac 80 mg, he was seen by me in December 21, 2016 due to alcohol/benzodiazepines withdrawal . Patient states that he woke up at around 2 AM this morning feeling sick to the stomach and shaking on both sides "tremors" feeling lightheaded. He denies any recent fever diarrhea abdominal pain neck pain headache. Patient is awake alert all this time when he feels these "tremors". On further history patient states history of anxiety/panic attack chronically on benzos. He sees Dr. Calhoun and his Lamictal was also recently increased and adjusted. He was admitted here a few weeks ago for the same problem/condition and on workup shows an EEG that was positive epileptiform abnormality on the temporal region left greater than right. Patient was consulted to psychiatry for medication management. On psychiatric evaluation patient was found in the ER, calm, cooperative, tremulous. He states that he has been feeling anxious in the last 2-3 days, he says that new medication were add by Dr. Calhoun to his psychotropic regimen, Lamictal 150 mg, and he has been taking his Xanax 2 mg 4 times a day, but he has been running on of the medication in the last days. Patient asked if this medication can be prescribed here on to he sees Dr. Calhoun. Patient denies depressive symptoms, he denies suicidal and homicidal ideation, he denies visual and auditory hallucination. Patient is oriented 3. Patient denies the use of illicit drugs, occasional use of alcohol. In my last encounter with the patient about 2 weeks ago his girlfriend confirmed me that the patient abuses benzodiazepines sometimes alone with alcohol. Review of Systems Constitutional: DENIES: Diaphoretic episodes, Fatigue, Fever, Weight gain, Weight loss, Chills, Dizziness, Change in appetite, Night Sweats Endocrine: DENIES: Heat/cold intolerance, Polydipsia, Polyuria, Polyphagia Eyes: DENIES: Blurred vision, Diplopia, Eye inflammation, Eye pain, Vision loss , Photosensitivity, Double Vision Ears, nose, mouth, throat: DENIES: Tinnitus, Hearing loss, Vertigo, Nasal discharge, Oral lesions, Throat pain, Hoarseness, Ear Pain, Running Nose, Epistaxis, Sinus Pain, Toothache, Odynophagia Respiratory: DENIES: Apneas, Cough, Snoring, Wheezing, Hemoptysis, Sputum production, Shortness of breath Cardiovascular: DENIES: Chest pain, Palpitations, Syncope, Dyspnea on Exertion , PND, Lower Extremity Edema, Orthopnea, Claudication Gastrointestinal: DENIES: Abdominal pain, Black stools, Bloody stools, Constipation, Diarrhea, Nausea, Vomiting, Difficulty Swallowing, Anorexia Musculoskeletal: DENIES: Joint pain, Muscle aches, Stiffness, Joint Swelling, Back pain, Neck pain Integumentary: DENIES: Abnormal pigmentation, Nail changes, Pruritus, Rash Immunologic/allergic: DENIES: Eczema, Urticaria Neurologic: COMPLAINS OF: Abnormal gait, Tremor Psychiatric: COMPLAINS OF: Anxiety Past Family Social History Coded Allergies: No Known Allergies (Verified , 08/09/16) Active Scripts Haloperidol 5 Mg Tab5 Mg PO BID #30 TAB Prov:Saúl London 07/25/16 Phenytoin Extended (Dilantin)100 Mg [id number] Mg PO Q8HR #90 CAP Prov:Saúl London 07/25/16 Levetiracetam (Keppra)500 Mg Tab1,000 Mg PO Q12HR #120 TAB Prov:Saúl London 07/25/16 Reported Medications Hyoscyamine 0.125 Mg Tab0.125 Mg PO DAILY Ref 0 08/09/16 Ondansetron (Zofran)8 Mg Tab8 Mg PO Q8HR PRN (NAUSEA OR VOMITING) Ref 0 08/09/16 Magnesium Oxide 400 Mg [id number] Mg PO DAILY Ref 0 08/09/16 Metoprolol Tartrate 100 Mg [id number] Mg PO BID #60 TAB Ref 0 08/09/16 Hydrochlorothiazide 25 Mg Tab25 Mg PO DAILY #30 TAB Ref 0 08/09/16 Potassium Chloride ER (K-Tab)20 Meq Tab20 Meq PO DAILY #30 TAB Ref 0 08/09/16 Buspirone 5 Mg Tab5 Mg PO TID Ref 0 08/09/16 Lamotrigine (Lamictal)100 Mg [id number] Mg PO BID #60 TAB Ref 0 08/09/16 Benazepril 20 Mg Tab20 Mg PO BID #60 TAB Ref 0 08/09/16 Amlodipine 5 Mg Tab5 Mg PO BID #30 TAB Ref 0 08/09/16 Atorvastatin 40 Mg Tab40 Mg PO HS #30 TAB Ref 0 08/09/16 Alprazolam 2 Mg Tab2 Mg PO QID 08/09/16 Metformin 1,000 Mg Tab1,000 Mg PO BIDPC #60 TAB Ref 0 With meals 07/20/16 Pantoprazole (Protonix)40 Mg Tab40 Mg PO DAILY #30 TAB Ref 0 07/20/16 Insulin Aspart Inj (Novolog Inj)1,000 Unit/10 Ml Vial4 Units SQ DAILY #10 ML Ref 0 Sliding Scale as directed. 07/20/16 Fluoxetine (Prozac)40 Mg Cap80 Mg PO DAILY #30 CAP Ref 0 07/20/16 Discontinued Reported Medications Benazepril (Lotensin)40 Mg Tab40 Mg PO DAILY #30 TAB Ref 0 07/20/16 Atorvastatin 20 Mg Tab20 Mg PO HS #30 TAB Ref 0 07/20/16 Alprazolam (Xanax)0.5 Mg Tab0.5 Mg PO Q6H PRN (ANXIETY) Ref 0 07/20/16 Discontinued Scripts Amlodipine (Norvasc)5 Mg Tab5 Mg PO DAILY #30 TAB Prov:Saúl London PA 07/25/16 Lamotrigine (Lamictal)100 Mg [id number] Mg PO BID #60 TAB Prov:Saúl London PA 07/25/16 Hydrocodone-Acetaminophen (Lortab)5-325 Mg Tab1-2 Tab PO Q6H PRN (PAIN) #12 TAB Prov:Ernesto Ballesteros MD 07/21/16 Naproxen (Naprosyn)500 Mg [id number] Mg PO BID PRN (PAIN SCALE 1 TO 10) #20 TAB Prov:Ernesto Ballesteros MD 07/21/16 Current Medications Medications (Trade) Dose Ordered Sig/Anh Route Start Time Stop Time Status Last Admin (NS Flush) 2 ml UNSCH PRN IVF 08/09/16 12:30 08/09/16 12:46 (Norvasc) 5 mg BID PO 08/09/16 21:00 08/10/16 09:19 (Lipitor) 40 mg HS PO 08/09/16 21:00 08/09/16 22:32 (Prinivil) 20 mg BID PO 08/09/16 21:00 08/10/16 09:18 (Keppra) 1,000 mg Q12HR PO 08/09/16 21:00 08/10/16 09:19 (Mag-Ox) 400 mg DAILY PO 08/10/16 09:00 08/10/16 09:18 (Protonix) 40 mg DAILY PO 08/10/16 09:00 08/10/16 09:19 (Dilantin) 100 mg Q8HR PO 08/09/16 22:00 08/10/16 13:22 (KCl) 20 meq DAILY PO 08/10/16 09:00 08/10/16 09:18 Ondansetron HCl 8 mg 8 mg Q8H PRN PO 08/09/16 17:15 08/10/16 11:37 (NS 1000 ml Inj) 1,000 ml @ 70 mls/hr [id number] IV 08/09/16 17:00 08/10/16 07:59 (Catapres) 0.1 mg Q6H PRN PO 08/09/16 17:00 (Buspar) 5 mg TID PO 08/09/16 18:00 08/10/16 13:22 (PROzac) 80 mg DAILY PO 08/10/16 09:00 08/10/16 09:19 (Haldol) 5 mg BID PO 08/09/16 21:00 08/10/16 09:18 (NovoLOG INJ) 4 units DAILY SQ 08/10/16 09:00 08/10/16 09:19 (Xanax) 2 mg TID PO 08/09/16 18:00 08/10/16 13:22 (Habitrol 14 Mg Patch.24 Hr) 1 patch DAILY TD 08/10/16 09:00 08/10/16 09:19 (Bucklin 5-325 Mg) 1 tab Q4H PRN PO 08/09/16 22:30 08/09/16 22:32 (Bucklin 5-325 Mg) 2 tab Q4H PRN PO 08/09/16 22:30 08/10/16 08:07 Family History He denies Social History Patient is with his girlfriend in [place], his unemployed, Physical Exam Tremors, shakiness, sweating Vital Signs Vital Signs Date Time Temp Pulse Resp B/P Pulse Ox O2 Delivery O2 Flow Rate FiO2 08/10/16 11:39 87 18 128/89 95 08/10/16 07:53 97.4 08/09/16 21:30 Room Air Mental Status Examination Appearance man, he isn't sure parents, without shirt, tremulous, cooperative Speech: Unremarkable Orientation: x3 Memory: Unremarkable Thought Process: Logical Thought Content: Unremarkable Hallucination Type: None Suicidal Ideation: No Previous Suicide Attempts: No Homicidal Ideation: No Judgement: WNL Affect: Good Mood: Appropriate Motor Activity: Normal gait Assessment & Plan Problem List: (1) Anxiety disorder, unspecified Assessment & Plan: The patient is a 56-year-old man, domiciled, , with psychiatric history of depression, anxiety, he is under the care of Dr. Calhoun in [place], he says that he is on Xanax 2 mg 4 times per day, Prozac 80 mg, he was seen by me in December 21, 2016 due to alcohol/benzodiazepines withdrawal . Today patient presents to the ER tremulous, with hyponatremia , Na123. Patient denies depression, denies suicidal or homicidal ideation, denies visual and auditory hallucinations. Patient is oriented 3, he does not seems to be confused. He reports anxiety in the context of not taking his Xanax in the last 2 days. Patient has for a prescription of Xanax want to he can see his psychiatrist Dr. Calhoun. He does not meet criteria for second admission. He is my opinion that the patient has benzodiazepine dependence and he might mix his Xanax without. Be careful with benzodiazepines is/alcohol withdrawal. Put the patient in CIWA Protocol. Will not give morning and 1 mg of xanax TID. Not sure as Lamictal is for seizures or for psychiatric reasons, but in this case I do not see a clear indication of Lamictal for psychiatric reasons since the patient does not have history of bipolar depression. Patient can continue his psychiatric care as an outpatient with Dr. Calhoun. Consul appreciated. ICD Code: F41.9 Assessment & Plan Estimated LOS: days Cesario Reza MD Aug 10, 2016 14:33
[2016-08-10 15:46] VITALS: BP 138/80; PULSE 86; RESP 18; O2SAT 95
--- NOTE | 2016-08-10 16:30 | MB ---
cc: RADHA VALENTIN M.D. DATE OF CONSULTATION: 08/10/2016. REASON FOR CONSULTATION: Seizure. HISTORY OF PRESENT ILLNESS: Mr. Briones is a 56-year-old man who has a history of depression and anxiety. He takes Prozac 80 milligrams daily, Xanax 2 milligrams four times a day and he was placed on Lamictal recently with an increasing dosage and several weeks ago increased the dose to 150 milligrams twice a day. He was recently admitted to the hospital due to alcohol and benzodiazepine withdrawal, although he denies alcohol use at this time. According to the record, however, there was indication of alcohol use. He states over the past several weeks he has developed tremulousness and has had four episodes where he was witnessed to lose consciousness by his girlfriend and then have his eyes roll up in his head having generalized tonic-clonic activity with a postictal state afterwards of confusion. The last episode was about a week ago. He has no prior history of seizures. At his last admission, he had an MRI of the brain on July 21, 2016, which was normal. CT of the brain showed slight atrophy. During his last admission, he was loaded with Cerebyx for seizures. He was seen by Dr. Carvalho in consultation and was discharged on Dilantin 100 milligrams three times a day. He had an electroencephalogram during that admission as well showing intermittent sharp spike discharges bilaterally, left more than right, in the temporal regions suggesting epileptiform activity. Apparently on reviewing the record, he did have a history of seizures in [place] but had never been treated for seizures for last admission. NEUROLOGIC EXAMINATION: VITAL SIGNS: Blood pressure 138/80, pulse 56, respirations 15, temperature 97 degrees. HIGHER CORTICAL FUNCTIONS: Higher cortical functions at the present time are normal. CRANIAL NERVES: Cranial nerves intact. MOTOR: On motor exam, he has no tremor. He has 5/5 strength in all major groups. There is no drift. REFLEXES: 2+ symmetric in both upper and lower extremities. LABS: White count 14,800, hemoglobin 14.3, hematocrit 43%, platelet count 449,000. Sodium is 129; yesterday it was 123. Potassium 3.6, chloride 92, carbon dioxide 26.3, creatinine 1.02, BUN is 10, glucose 116. Liver function tests are normal. Dilantin level was subtherapeutic at 4.8 yesterday and today 4.5. IMPRESSION: History of seizures. Some of these may be related to alcohol use and possible benzodiazepine withdrawal. However with the EEG last time showing epileptiform activity, I agree to continue him on Dilantin. He is subtherapeutic therefore will raise the dose to 400 milligrams daily as well and place him under seizure precautions. I would like to repeat an EEG as well. I do not think we need to repeat the MRI of the brain since he had this done recently. MD OSCAR Byrnes/SUPRIYA /4:10 PM /4:20 PM
--- NOTE | 2016-08-10 16:56 | EKG ---
Date Performed: 08/09/2016 Time Performed: 15:23:52 PTAGE: 56 years EKG: Sinus rhythm Compared to prior tracing no significant change NORMAL ECG PREVIOUS TRACING : 07/20/2016 21.57 DOCTOR: Chalo Mi Interpretating Date/Time 08/10/2016 16:53:48
[2016-08-10] MEDS ORDERED: PHENYTOIN INJ 250 MG/5 ML VIAL IV ONE (17:15)
[2016-08-10] MEDS ORDERED: PHENYTOIN INJ 500 MG in SODIUM CHLORIDE 0.9% INJ 100 ML IV ONE (17:30)
--- NOTE | 2016-08-10 17:32 | HHI.PR ---
Subjective Remarks patient feeling better no chest pains or shortness of breath or lightheadedness no nausea or vomiting Objective Vitals Vital Signs Date Time Temp Pulse Resp B/P Pulse Ox O2 Delivery O2 Flow Rate FiO2 08/10/16 15:46 86 18 138/80 95 08/10/16 11:39 87 18 128/89 95 08/10/16 07:53 97.4 83 18 124/86 98 08/10/16 03:57 98.2 75 19 104/65 94 08/10/16 01:40 20 08/09/16 23:54 98.3 79 19 145/85 95 08/09/16 22:09 98.4 86 20 149/87 96 08/09/16 21:30 75 18 134/78 96 Room Air 08/09/16 19:38 75 08/09/16 19:37 75 16 150/97 95 Room Air 08/09/16 18:00 81 17 147/89 94 Room Air I/O 08/09/16 08/09/16 08/09/16 08/10/16 08/10/16 08/10/16 07:00 15:00 23:00 07:00 15:00 23:00 Intake Total 510 ml 510 ml Balance 510 ml 510 ml Intake Oral 300 ml 300 ml IV Total 210 ml 210 ml # Voids 1 2 2 Result Diagram: 08/09/16 1040 08/10/16 0615 Objective Remarks a x o x 3, not in acute distress anicteric no nuchal rigidity lungs clear regular rhythm abdomen soft, nontender extremites no edema neuro exam- unremarkable A/P Assessment and Plan 56-year-old male presenting with tremors lightheadedness history of seizure disorder EEG was positive for epileptiform activity on the temporal lobe area Continue on Keppra and Dilantin. give another 500 mg IV x 1. Dilantin up to 200 mg po bid appreciate Dr Baker seeing patient- EEG ordered Hyponatremia which can lower seizure threshold- Improved Start normal saline. Hold hydrochlorothiazide History of anxiety/panic attack patient Lamictal was recently increased unclear if this is related to the symptoms of lightheadedness appreciate Dr. Reza recommendations. Restarted on Xanax History of diabetes type 2 will check that sugars 3 times a day at bedtime sliding scale insulins for now restart his Metformin Acute kidney injury will start patient on hydration. Hold hydrochlorothiazide History of hypertension continue Benazepril. prn clonidine History of chronic pain when necessary pain meds Teds for DVT prophylaxis PPI for GI prophylaxis up and ambulating Shiraz Ceja MD Aug 10, 2016 17:32
[2016-08-10 19:37] VITALS: BP 118/81; PULSE 74; RESP 19; TEMP 98.2; O2SAT 97
[2016-08-10] MEDS: ATORVASTATIN 40 MG TAB PO SCH (20:49)
[2016-08-10 22:44] VITALS: BP 147/84; PULSE 80; RESP 16; TEMP 96.4; O2SAT 97
[2016-08-10 23:51] LABS: AMPHETAMINE, URINE NEG (NEG); BARBITURATES, URINE NEG (NEG); COCAINE, URINE NEG (NEG)
[2016-08-11] MEDS: ACETAMINOPHEN/HYDROcodone 325 MG/5 MG TAB PO PRN ×4 (00:07→17:06)
[2016-08-11] MEDS: POTASSIUM CHLORIDE 20 MEQ CONTROLLED RELEASE TAB PO SCH (07:40)
[2016-08-11] MEDS: NICOTINE 14 MG/24 HR PATCH TD SCH (07:40)
[2016-08-11] MEDS: ONDANSETRON ODT 4 MG TAB PO PRN (07:40)
[2016-08-11] MEDS: FLUoxetine HCL 20 MG CAP PO SCH (07:41)
[2016-08-11] MEDS: MAGNESIUM OXIDE 400 MG TAB PO SCH (07:41)
[2016-08-11] MEDS: busPIRone HCL 5 MG TAB PO SCH ×3 (07:41→17:05)
[2016-08-11] MEDS: levETIRAcetam 500 MG TAB PO SCH (07:42)
[2016-08-11] MEDS: INSULIN ASPART 1,000 UNITS/10 ML VIAL SQ SCH (07:42)
[2016-08-11] MEDS: PHENYTOIN SODIUM 100 MG CAP PO SCH (07:42)
[2016-08-11] MEDS: ALPRAZolam 1 MG TAB PO SCH ×3 (07:42→17:05)
[2016-08-11] MEDS: LISINOPRIL 20 MG TAB PO SCH (07:42)
[2016-08-11] MEDS: PANTOPRAZOLE SOD 40 MG DELAYED RELEASE TAB PO SCH (07:46)
[2016-08-11 07:47] VITALS: BP 156/87; PULSE 71; RESP 17; TEMP 96.3; O2SAT 94
[2016-08-11] MEDS: amLODIPine BESYLATE 5 MG TAB PO SCH (07:53)
[2016-08-11 08:15] LABS: ANION GAP 8 MEQ/L (5-15); BICARBONATE 26.4 MEQ/L (21.0-32.0); BLOOD UREA NITROGEN 9 MG/DL (7-18); CHLORIDE 100 MEQ/L (98-107); GLOMERULAR FILTRATION RATE 81 ML/MIN (>89); POTASSIUM 4.6 MEQ/L (3.5-5.1); SODIUM (NA) 134 MEQ/L (136-145)
[2016-08-11] MEDS ORDERED: INFLUENZA VIRUS VACCINE (QUADRIVALENT) 0.5 ML SYR IM ONE (09:00)
[2016-08-11] MEDS: HALOPERIDOL 5 MG TAB PO SCH (09:00)
[2016-08-11 11:30] VITALS: BP 135/86; PULSE 72; RESP 17; TEMP 96.9; O2SAT 96
--- NOTE | 2016-08-11 12:18 | HHI.PR ---
Subjective Remarks no reported seizure patient pierre and cooperative Objective Vitals Vital Signs Date Time Temp Pulse Resp B/P Pulse Ox O2 Delivery O2 Flow Rate FiO2 08/11/16 07:47 96.3 71 17 156/87 94 08/10/16 22:44 96.4 80 16 147/84 97 08/10/16 19:37 98.2 74 19 118/81 97 08/10/16 15:46 86 18 138/80 95 I/O 08/10/16 08/10/16 08/10/16 08/11/16 08/11/16 08/11/16 07:00 15:00 23:00 07:00 15:00 23:00 Intake Total 510 ml 949 ml 1001 ml Balance 510 ml 949 ml 1001 ml Intake Oral 300 ml 300 ml 480 ml IV Total 210 ml 649 ml 521 ml # Voids 1 2 2 2 Result Diagram: 08/09/16 1040 08/11/16 0657 Objective Remarks a x o x 3, not in acute distress anicteric no nuchal rigidity lungs clear regular rhythm abdomen soft, nontender extremities no edema neuro exam- unremarkable A/P Assessment and Plan 56-year-old male presenting with tremors lightheadedness history of seizure disorder EEG was positive for epileptiform activity on the temporal lobe area Continue on Keppra and Dilantin. appreciate Dr Baker seeing patient- EEG ordered- still pending Hyponatremia which can lower seizure threshold- Improved Hold hydrochlorothiazide History of anxiety/panic attack patient Lamictal was recently increased unclear if this is related to the symptoms of lightheadedness appreciate Dr. Reza recommendations. Restarted on Xanax History of diabetes type 2 will check that sugars 3 times a day at bedtime sliding scale insulins for now restart his Metformin Acute kidney injury will start patient on hydration. Hold hydrochlorothiazide History of hypertension continue Benazepril. prn clonidine. avoid diuretics. ff and adjust History of chronic pain when necessary pain meds Teds for DVT prophylaxis PPI for GI prophylaxis up and ambulating DC today no driving, avoid heights, no alcohol activity as toelrated- weightbearing FF up with Dr. Bkaer- FF up with PCP Dr. Coley- instruct to call for appt next week Shiraz Ceja MD Aug 11, 2016 12:18
[2016-08-11 12:29] LABS: HEMOGLOBIN A1a 1.2 %; HEMOGLOBIN Ao 78.5 %; HEMOGLOBIN LA1C 2.3 %; HEMOGLOBIN P3 4.3 %
[2016-08-11 15:54] VITALS: BP 155/84; PULSE 71; RESP 17; TEMP 97.7; O2SAT 94
[2016-08-11] MEDS ORDERED: XANA1TAB2 PO (18:30)
[2016-08-11] MEDS ORDERED: DILA100C PO (18:30)
--- NOTE | 2016-08-11 22:59 | MG ---
cc: RADHA VALENTIN Lab No: [id number] Date: 08/11/16 Age: Sex: M Race: Cc. DESCRIPTION The background rhythm is a symmetrical alpha rhythm with a frequency of 8-9 Hz, amplitude is 20-30 microvolts. There is some superimposed beta rhythm, probably related to medication effect. During drowsiness there is some slowing in the theta range. The patient does appear to fall asleep and normal sleep spindles and vertex sharp waves are seen associated with sleep activity. There are no epileptiform discharges. There are no lateralizing features present. Photic results in a fairly well-developed driving response. INTERPRETATION Normal EEG. MD OSCAR Byrnes/ /10:30 PM /10:58 PM
== END 2016-08-11 20:40 | disposition home or self-care (01) | DRG 101 ==
LOC: NEPE 12:02 → NEDA 15:40 → NEPGCP 21:45 → N06B 08-10 22:30
PROVIDERS: ADMIT Internal Medicine; ATTEND Internal Medicine
DX: G40.909 Epilepsy, unspecified, not intractable, without status epilepticus (principal); N17.9 Acute kidney failure, unspecified; E87.1 Hypo-osmolality and hyponatremia; I10 Essential (primary) hypertension; E11.9 Type 2 diabetes mellitus without complications; F41.0 Panic disorder [episodic paroxysmal anxiety]; F17.210 Nicotine dependence, cigarettes, uncomplicated; Z79.4 Long term (current) use of insulin
CPT/HCPCS: 80048; 80053; 80175; 80185; 80307; 82948; 83036; 84300; 84443; 85025; 90471; 90686; 93005; 95819; G0008; J1165; J1815; J7030; Q2038

== ENCOUNTER 2016-12-04 09:41 | Inpatient (IN) | payer OTHER, MEDICARE ==
[~2016-12-04] VITALS: Ht 188 cm; Wt 111.9 kg
[~2016-12-04 09:41] MED LIST changes: -ALPR.5 PO; -AMLO5 PO; +AMLO5TAB2 PO; -ATOR20TA15 PO; +ATOR40TA16 PO; +BENA20TA PO; +BUSP5TAB PO; -HYDR-3533 PO; +HYOS0.128 PO; -LOTE40TA PO; +MAGN400T2 PO; +METO100T PO; -NAPR500 PO; +POTA1TAB4 PO; +XANA1TAB2 PO; +ZOFR8TAB PO
[2016-12-04 10:00] VITALS: BP 123/78; PULSE 75; RESP 16; TEMP 98.1; O2SAT 95
[2016-12-04] MEDS ORDERED: SODIUM CHLOR 0.9% 1000 ML INJ 1,000 ML IV ONE ×2 (10:15→11:15)
[2016-12-04] MEDS ORDERED: KLON2TAB PO (10:19)
[2016-12-04] MEDS ORDERED: LANTUS2P SQ (10:19)
--- NOTE | 2016-12-04 10:21 | PD ---
HPI Chief Complaint: Diabetic Time Seen by Provider: 10:07 Travel History International Travel<30 days: No Contact w/Intl Traveler<30days: No Traveled to known affect area: No History of Present Illness HPI 56 years old male complains of dizziness, coughing, chest discomfort and elevated blood sugar. Patient has history of diabetes and states his blood sugar has been elevated for the past week. Patient states that his blood sugar has been in the 300-400 range at home. Patient denies any headache. Patient denies any neck pain. Patient states that he has productive cough the past few days. Patient denies any fever chills. Patient states that he has anterior chest wall discomfort for the past 3 days. Patient states that the chest and covered is not associated with exertion. Patient denies any chest pain radiation. Patient denies palpitation nausea diaphoresis. Patient denies abdominal pain. Patient denies any dysuria or frequency. Patient denies any fever chills. Patient has history seizure disorder, anxiety panic attack, hypertension and chronic pain. PFSH Past Medical History Arthritis: No Asthma: No Autoimmune Disease: No Blood Disorders: No Anxiety: Yes Depression: Yes Heart Rhythm Problems: No Cancer: No Cardiovascular Problems: Yes High Cholesterol: Yes Chemotherapy: No Chest Pain: No Congestive Heart Failure: No COPD: No Cerebrovascular Accident: No Diabetes: Yes Diminished Hearing: No Endocrine: No Gastrointestinal Disorders: Yes GERD: Yes Glaucoma: No Genitourinary: No Headaches: No Hepatitis: No Hiatal Hernia: No Hypertension: Yes Immune Disorder: No Implanted Vascular Access Dvce: Yes (LEFT HIP ) Kidney Stones: No Musculoskeletal: Yes (HIP REPLACEMENT) Neurologic: Yes (SEIZURES) Psychiatric: Yes Reproductive: No Respiratory: No Immunizations Current: Yes Migraines: Yes Myocardial Infarction: No Radiation Therapy: No Renal Failure: No Seizures: No Sickle Cell Disease: No Sleep Apnea: No Thyroid Disease: No Ulcer: No PNEUMOCCOCAL Vaccine (Year): 3 Past Surgical History Abdominal Surgery: No AICD: No Appendectomy: No Arteriovenous Shunt: No Cardiac Surgery: No Cholecystectomy: No Ear Surgery: No Endocrine Surgery: No Eye Surgery: No Genitourinary Surgery: No Gynecologic Surgery: No Insulin Pump: No Joint Replacement: Yes (HIP RT WITH PLATE ) Oral Surgery: Yes (WISDOM TEETH REMOVED.) Pacemaker: No Thoracic Surgery: No Tonsillectomy: Yes Other Surgery: Yes (tens unit) Social History Alcohol Use: No Tobacco Use: Yes (06/25 PPD) Substance Use: No Allergies-Medications (Allergen,Severity, Reaction): Coded Allergies: No Known Allergies (Verified , 12/04/16) Reported Meds & Prescriptions Reported Meds & Active Scripts Active Dilantin (Phenytoin Extended) 100 Mg Cap 200 Mg PO BID 30 Days Haloperidol 5 Mg Tab 5 Mg PO BID Keppra (Levetiracetam) 500 Mg Tab 1,000 Mg PO Q12HR Reported Gabapentin 300 Mg Cap 300 Mg PO HS Gabapentin 300 Mg Cap 600 Mg PO TID Lantus Inj (Insulin Glargine) 1,000 Unit/10 Ml Vial 55 Units SQ DAILY Klonopin (Clonazepam) 2 Mg Tab 2 Mg PO TID Hyoscyamine (Hyoscyamine Sulfate) 0.125 Mg Tab 0.125 Mg PO DAILY Zofran (Ondansetron HCl) 8 Mg Tab 8 Mg PO Q8HR PRN Magnesium Oxide 400 Mg Tab 400 Mg PO DAILY Metoprolol Tartrate 100 Mg Tab 100 Mg PO BID K-Tab (Potassium Chloride) 20 Meq Tab 20 Meq PO DAILY Buspirone (Buspirone HCl) 5 Mg Tab 5 Mg PO TID Lamictal (Lamotrigine) 100 Mg Tab 100 Mg PO BID Benazepril (Benazepril HCl) 20 Mg Tab 20 Mg PO BID Amlodipine (Amlodipine Besylate) 5 Mg Tab 5 Mg PO BID Atorvastatin (Atorvastatin Calcium) 40 Mg Tab 40 Mg PO HS Metformin (Metformin HCl) 1,000 Mg Tab 1,000 Mg PO BIDPC With meals Protonix (Pantoprazole Sodium) 40 Mg Tab 40 Mg PO DAILY Prozac (Fluoxetine HCl) 40 Mg Cap 80 Mg PO BID Review of Systems General / Constitutional: No: Fever Eyes: No: Visual changes HENT: Positive: Lightheadedness, No: Headaches Cardiovascular: Positive: Chest Pain or Discomfort Respiratory: Positive: Cough, No: Shortness of Breath Gastrointestinal: No: Abdominal Pain Genitourinary: No: Dysuria Musculoskeletal: No: Pain Skin: No Rash Neurologic: No: Weakness Psychiatric: No: Depression Endocrine: No: Polydipsia Hematologic/Lymphatic: No: Easy Bruising Physical Exam Narrative GENERAL: Well-nourished, well-developed patient. SKIN: Focused skin assessment warm/dry. HEAD: Normocephalic. EYES: No scleral icterus. No injection or drainage. NECK: Supple, trachea midline. No JVD or lymphadenopathy. CARDIOVASCULAR: Regular rate and rhythm without murmurs, gallops, or rubs. RESPIRATORY: Breath sounds equal bilaterally. No accessory muscle use. GASTROINTESTINAL: Abdomen soft, non-tender, nondistended. MUSCULOSKELETAL: No cyanosis, or edema. BACK: Nontender without obvious deformity. No CVA tenderness. Neurologic exam normal. Data Data Last Documented VS Vital Signs Date Time Temp Pulse Resp B/P Pulse Ox O2 Delivery O2 Flow Rate FiO2 12/04/16 10:00 16 95 Room Air 12/04/16 10:00 98.1 75 123/78 Orders Electrocardiogram (12/04/16 10:13) Complete Blood Count With Diff (12/04/16 10:13) Comprehensive Metabolic Panel (12/04/16 10:13) Creatine Kinase (Cpk) (12/04/16 10:13) Troponin I (12/04/16 10:13) Prothrombin Time / Inr (Pt) (12/04/16 10:13) Act Partial Throm Time (Ptt) (12/04/16 10:13) Urinalysis - C+S If Indicated (12/04/16 10:13) Beta Hydroxybutyrate (Acetone) (12/04/16 10:13) Thyroid Stimulating Hormone (12/04/16 10:13) Chest, Single Ap (12/04/16 10:13) Iv Access Insert/Monitor (12/04/16 10:13) Ecg Monitoring (12/04/16 10:13) Oximetry (12/04/16 10:13) Sodium Chlor 0.9% 1000 Ml Inj (Ns 1000 M (12/04/16 10:15) Sodium Chlor 0.9% 1000 Ml Inj (Ns 1000 M (12/04/16 11:15) Labs Laboratory Tests Test 12/04/16 12/04/16 10:00 11:00 White Blood Count 8.2 TH/MM3 Red Blood Count 4.48 MIL/MM3 Hemoglobin 14.3 GM/DL Hematocrit 41.6 % Mean Corpuscular Volume 92.9 FL Mean Corpuscular Hemoglobin 32.0 PG Mean Corpuscular Hemoglobin 34.4 % Concent Red Cell Distribution Width 13.2 % Platelet Count 307 TH/MM3 Mean Platelet Volume 8.3 FL Neutrophils (%) (Auto) 64.6 % Lymphocytes (%) (Auto) 26.0 % Monocytes (%) (Auto) 6.5 % Eosinophils (%) (Auto) 2.6 % Basophils (%) (Auto) 0.3 % Neutrophils # (Auto) 5.4 TH/MM3 Lymphocytes # (Auto) 2.1 TH/MM3 Monocytes # (Auto) 0.5 TH/MM3 Eosinophils # (Auto) 0.2 TH/MM3 Basophils # (Auto) 0.0 TH/MM3 CBC Comment DIFF FINAL Differential Comment Prothrombin Time 9.7 SEC Prothromb Time International 0.9 RATIO Ratio Activated Partial 25.3 SEC Thromboplast Time Sodium Level 123 MEQ/L Potassium Level 4.2 MEQ/L Chloride Level 85 MEQ/L Carbon Dioxide Level 24.2 MEQ/L Anion Gap 14 MEQ/L Blood Urea Nitrogen 36 MG/DL Creatinine 2.10 MG/DL Estimat Glomerular Filtration 33 ML/MIN Rate Random Glucose 626 MG/DL Calcium Level 9.5 MG/DL Total Bilirubin 0.3 MG/DL Aspartate Amino Transf 22 U/L (AST/SGOT) Alanine Aminotransferase 38 U/L (ALT/SGPT) Alkaline Phosphatase 130 U/L Total Creatine Kinase 104 U/L Troponin I LESS THAN 0.02 NG/ML Total Protein 7.5 GM/DL Albumin 3.5 GM/DL Thyroid Stimulating Hormone 1.070 uIU/ML 3rd Gen B-Hydroxybutyrate 0.38 MMOL/L Urine Collection Type CLEAN CATCH Urine Color YELLOW Urine Turbidity CLEAR Urine pH 6.0 Urine Specific [place] 1.025 Urine Protein NEG mg/dL Urine Glucose (UA) 1000 OR GREATER mg/dL Urine Ketones NEG mg/dL Urine Occult Blood TRACE Urine Nitrite NEG Urine Bilirubin NEG Urine Leukocyte Esterase NEG Urine RBC 0-3 /hpf Urine Squamous Epithelial 0-5 /hpf Cells Microscopic Urinalysis Comment CULT NOT INDICATED Urine Collection Time 11:00 [facility] Medical Decision Making Medical Screen Exam Complete: Yes Emergency Medical Condition: Yes Interpretation(s) Last Impressions Chest X-Ray 12/04/16 1013 Signed Impressions: Service Date/Time: Sunday, December 04, 2016 10:26 - CONCLUSION: No acute disease. Albaro Gregorio MD 11:33 AM. CBC within normal limit. Sodium 123. Glucose 626. Bicarbonate 24.2. BUN 36. Creatinine 2.10. Cardiac enzymes are normal. Beta hydroxy butyrate 0.38. UA positive for glucose. Differential Diagnosis Differential diagnosis including hyperglycemia, electrolyte abnormality, bronchitis, pneumonia, angina, KS, PE, pneumothorax. Narrative Course 56 years old male complains of dizziness, productive cough and chest discomfort. Normal saline solution 2 L IV bolus. Novolin R 10 units IV given. Diagnosis Primary Impression: Hyperglycemia Additional Impressions: Hyponatremia Renal insufficiency Admitting Information Admitting Physician Requests: Admit Walt Melendrez MD Dec 04, 2016 10:21
[2016-12-04 10:30] LABS: AUTOMATED NEUTROPHIL # 5.4 TH/MM3 (1.8-7.7); BASOPHIL % 0.3 % (0.0-2.0); EOSINOPHIL # 0.2 TH/MM3 (0-0.4); EOSINOPHIL % 2.6 % (0.0-4.0); HEMATOCRIT 41.6 % (39.0-51.0); LYMPHOCYTE # 2.1 TH/MM3 (1.0-4.8); MEAN CELL VOLUME 92.9 FL (80.0-100.0); MEAN CORPUSCULAR HGB CONC 34.4 % (32.0-36.0); MONO % 6.5 % (0.0-8.0); NEUT % 64.6 % (16.0-70.0); PLATELET COUNT 307 TH/MM3 (150-450); RED BLOOD COUNT 4.48 MIL/MM3 (4.50-5.90); RED CELL DISTRIBUTION WIDTH 13.2 % (11.6-17.2); WHITE BLOOD COUNT 8.2 TH/MM3 (4.0-11.0)
[2016-12-04 10:32] LABS: HEMO FLAGS DIFF FINAL
[2016-12-04] MEDS ORDERED: GABA300C5 PO ×2 (10:32)
--- NOTE | 2016-12-04 10:37 | RADHPO ---
EXAM DATE/TIME: 12/04/2016 10:26 [place] COMPARISON: CHEST SINGLE AP, March 18, 2015, 16:16. INDICATIONS : Cough. dizziness MEDICAL HISTORY : Gastroesophageal reflux disease. Hypertension. Diabetes mellitus type 2. Hypercholesterolemia.Seizu res. Degenerative disc disease. SURGICAL HISTORY : Tonsillectomy. Orthopedic. ENCOUNTER: Initial ACUITY: 1 day PAIN SCORE: 0/10 LOCATION: chest FINDINGS: A single view of the chest demonstrates the lungs to be symmetrically aerated without evidence of mas s, infiltrate or effusion. The cardiomediastinal contours are unremarkable. Osseous structures are intact. CONCLUSION: No acute disease. Albaro Gregorio MD on December 04, 2016 at 10:35 Board Certified Radiologist. This report was verified electronically.
[2016-12-04 10:46] LABS: APTT (PATIENT) 25.3 SEC (24.3-30.1); INTERNATIONAL NORMALIZED RATIO 0.9 RATIO; PROTHROMBIN TIME - PATIENT 9.7 SEC (9.8-11.6)
[2016-12-04 10:57] LABS: ANION GAP 14 MEQ/L (5-15); AST (GOT) 22 U/L (15-37); BICARBONATE 24.2 MEQ/L (21.0-32.0); BLOOD UREA NITROGEN 36 MG/DL (7-18); CHLORIDE 85 MEQ/L (98-107); GLOMERULAR FILTRATION RATE 33 ML/MIN (>89); POTASSIUM 4.2 MEQ/L (3.5-5.1)
[2016-12-04 11:05] LABS: ALKALINE PHOSPHATASE 130 U/L (45-117); CREATINE KINASE 104 U/L (39-308); TOTAL BILIRUBIN ADULT 0.3 MG/DL (0.2-1.0)
[2016-12-04 11:06] LABS: ALT (GPT) 38 U/L (12-78)
[2016-12-04 11:08] LABS: SODIUM (NA) 123 MEQ/L (136-145)
[2016-12-04 11:14] LABS: BETA-HYDROXYBUTYRATE 0.38 MMOL/L (0.00-0.39)
[2016-12-04 11:21] LABS: BLOOD, URINE TRACE (NEG); GLUCOSE,URINE 1000 OR GREATER mg/dL (NEG); KETONE, URINE NEG (NEG); NITRITE,URINE NEG (NEG)
[2016-12-04 11:28] LABS: METHOD OF COLLECTION CLEAN CATCH; URINE COLOR YELLOW (YELLW/STRAW)
[2016-12-04 11:29] LABS: COMMENT (UR) CULT NOT INDICATED; CULTURE IF INDICATED CULT NOT INDICATED; RBC, URINE 0-3 /hpf (0-3); SQUAMOUS EPITHELIAL CELL URINE 0-5 /hpf (0-5)
[2016-12-04 11:30] VITALS: BP 104/58; PULSE 68; RESP 16; O2SAT 95
[2016-12-04] MEDS ORDERED: NALOXONE HCL 0.4 MG/ML AMP IV PRN ×2 (11:45→17:45)
[2016-12-04] MEDS ORDERED: BISACODYL 10 MG SUPP RECTAL PRN (11:45)
[2016-12-04] MEDS ORDERED: SENNOSIDES 8.6 MG TAB PO PRN (11:45)
[2016-12-04] MEDS ORDERED: INSULIN HUMAN REGULAR 1,000 UNITS/10 ML VIAL IV PUSH ONE (11:45)
[2016-12-04] MEDS ORDERED: SODIUM CHLORIDE 0.9% FLUSH 10 ML FLUSH IV FLUSH PRN (11:45)
[2016-12-04] MEDS ORDERED: MAGNESIUM HYDROXIDE SUSP 30 ML CUP PO PRN (11:45)
[2016-12-04] MEDS ORDERED: LACTULOSE SYRUP 20 GM/30 ML CUP PO PRN (11:45)
[2016-12-04] MEDS ORDERED: SODIUM CHLOR 0.9% 1000 ML INJ 1,000 ML IV SCH ×2 (11:45→12:00)
[2016-12-04] MEDS: HEPARIN SODIUM - SQ 10,000 UNITS/ML VIAL SQ SCH ×2 (12:15→23:32)
[2016-12-04] MEDS: busPIRone HCL 5 MG TAB PO SCH ×2 (12:51→18:20)
[2016-12-04 13:00] VITALS: BP 102/70; PULSE 66; RESP 16; O2SAT 95
[2016-12-04] MEDS ORDERED: GLUCAGON 1 MG/ML VIAL OTHER PRN (13:30)
[2016-12-04] MEDS ORDERED: DEXTROSE 50% IN WATER 50 ML VIAL(D50) IV PUSH PRN (13:30)
[2016-12-04] MEDS ORDERED: INSULIN DETEMIR 100 UNITS/ML VIAL SQ SCH (13:30)
[2016-12-04 14:30] VITALS: BP 100/67; PULSE 68; RESP 16; O2SAT 97
--- NOTE | 2016-12-04 14:52 | HHI.HP ---
[facility] Service [facility] Primary Care Physician Camden Coley MD Admission Diagnosis hyperglycemia. Hyponatremia. Renal insufficiency. Diagnoses: Travel History International Travel<30 Days: No Contact w/Intl Traveler <30 Da: No Traveled to Known Affected Are: No History of Present Illness 56-year-old male with a history of diabetes type 2 on insulin, hypertension, chronic pain who presents with a one-week history of worsening fatigue, two- week history of nonbloody diarrhea without any abdominal pain, as well as a three-day history of hyperglycemia with glucose above 400. He denies any nausea or vomiting. Denies any fevers or chills. He does report an abscess on the right arm which has been growing in size over the past 2 weeks. Denies any history of MRSA. Patient reports compliance with his insulin. Denies any dysuria. Denies any chest pain. Denies any shortness of breath. Patient does report feeling a little bit more tired and "slow" over the past several days, however remains alert and oriented 3. Denies headache. No focal signs or symptoms Review of Systems Performed and negative except for history of present illness and past medical history. Past Family Social History Past Medical History Type 2 diabetes. Insulin requiring Hypertension Chronic pain Seizure disorder Anxiety with panic attacks Hyponatremia on recent admission. Past Surgical History Left and right shoulder surgeries Right hip replacement Back surgery neurostimulator placement Reported Medications Reported Meds & Active Scripts Active Dilantin (Phenytoin Extended) 100 Mg Cap 200 Mg PO BID 30 Days Haloperidol 5 Mg Tab 5 Mg PO BID Keppra (Levetiracetam) 500 Mg Tab 1,000 Mg PO Q12HR Reported Gabapentin 300 Mg Cap 300 Mg PO HS Gabapentin 300 Mg Cap 600 Mg PO TID Lantus Inj (Insulin Glargine) 1,000 Unit/10 Ml Vial 55 Units SQ DAILY Klonopin (Clonazepam) 2 Mg Tab 2 Mg PO TID Hyoscyamine (Hyoscyamine Sulfate) 0.125 Mg Tab 0.125 Mg PO DAILY Zofran (Ondansetron HCl) 8 Mg Tab 8 Mg PO Q8HR PRN Magnesium Oxide 400 Mg Tab 400 Mg PO DAILY Metoprolol Tartrate 100 Mg Tab 100 Mg PO BID K-Tab (Potassium Chloride) 20 Meq Tab 20 Meq PO DAILY Buspirone (Buspirone HCl) 5 Mg Tab 5 Mg PO TID Lamictal (Lamotrigine) 100 Mg Tab 100 Mg PO BID Benazepril (Benazepril HCl) 20 Mg Tab 20 Mg PO BID Amlodipine (Amlodipine Besylate) 5 Mg Tab 5 Mg PO BID Atorvastatin (Atorvastatin Calcium) 40 Mg Tab 40 Mg PO HS Metformin (Metformin HCl) 1,000 Mg Tab 1,000 Mg PO BIDPC With meals Protonix (Pantoprazole Sodium) 40 Mg Tab 40 Mg PO DAILY Prozac (Fluoxetine HCl) 40 Mg Cap 80 Mg PO BID Allergies: Coded Allergies: No Known Allergies (Verified , 12/04/16) Family History Mother with diabetes. Father at age 93 from reported [place] Social History Patient is smoked one half pack per day for 25 years. Occasional drinker. Last alcohol 2 months ago. Denies any illicit drugs Physical Exam Vital Signs Vital Signs Date Time Temp Pulse Resp B/P Pulse Ox O2 Delivery O2 Flow Rate FiO2 12/04/16 13:00 66 16 102/70 95 Room Air 12/04/16 10:00 16 95 Room Air 12/04/16 10:00 98.1 75 16 123/78 95 12/04/16 10:00 16 95 Room Air Physical Exam GENERAL: This is a well-nourished, well-developed patient, who appears tired, however alert and oriented 3. SKIN: No rashes, ecchymoses or lesions. Cool and dry. HEAD: Atraumatic. Normocephalic. No temporal or scalp tenderness. EYES: Pupils equal round and reactive. Extraocular motions intact. No scleral icterus. No injection or drainage. ENT: Nose without bleeding, purulent drainage or septal hematoma. Throat without erythema, tonsillar hypertrophy or exudate. Uvula midline. Airway patent. NECK: Trachea midline. No JVD or lymphadenopathy. Supple, nontender, no meningeal signs. CARDIOVASCULAR: Regular rate and rhythm without murmurs, gallops, or rubs. RESPIRATORY: Clear to auscultation. Breath sounds equal bilaterally. No wheezes , rales, or rhonchi. GASTROINTESTINAL: Abdomen soft, non-tender, nondistended. No hepato-splenomegaly , or palpable masses. No guarding. MUSCULOSKELETAL: Extremities without clubbing, cyanosis, or edema. No joint tenderness, effusion, or edema noted. No calf tenderness. Negative Homans sign bilaterally. Right upper arm with 2 cm x 2 cm abscess, with 2 cm of surrounding erythema. With pressure, pus exited through a small sinus. Wound was further opened with scalpel, with removal of pus, as well as sebaceous raw material. Patient tolerated this well. NEUROLOGICAL: Awake and alert. Cranial nerves II through XII intact. Motor and sensory grossly within normal limits. Five out of 5 muscle strength in all muscle groups. Normal speech. Laboratory Laboratory Tests Test 12/04/16 12/04/16 10:00 11:00 White Blood Count 8.2 Red Blood Count 4.48 Hemoglobin 14.3 Hematocrit 41.6 Mean Corpuscular Volume 92.9 Mean Corpuscular Hemoglobin 32.0 Mean Corpuscular Hemoglobin 34.4 Concent Red Cell Distribution Width 13.2 Platelet Count 307 Mean Platelet Volume 8.3 Neutrophils (%) (Auto) 64.6 Lymphocytes (%) (Auto) 26.0 Monocytes (%) (Auto) 6.5 Eosinophils (%) (Auto) 2.6 Basophils (%) (Auto) 0.3 Neutrophils # (Auto) 5.4 Lymphocytes # (Auto) 2.1 Monocytes # (Auto) 0.5 Eosinophils # (Auto) 0.2 Basophils # (Auto) 0.0 CBC Comment DIFF FINAL Differential Comment Prothrombin Time 9.7 Prothromb Time International 0.9 Ratio Activated Partial 25.3 Thromboplast Time Sodium Level 123 Potassium Level 4.2 Chloride Level 85 Carbon Dioxide Level 24.2 Anion Gap 14 Blood Urea Nitrogen 36 Creatinine 2.10 Estimat Glomerular Filtration 33 Rate Random Glucose 626 Calcium Level 9.5 Total Bilirubin 0.3 Aspartate Amino Transf 22 (AST/SGOT) Alanine Aminotransferase 38 (ALT/SGPT) Alkaline Phosphatase 130 Total Creatine Kinase 104 Troponin I LESS THAN 0.02 Total Protein 7.5 Albumin 3.5 Thyroid Stimulating Hormone 1.070 3rd Gen B-Hydroxybutyrate 0.38 Urine Collection Type CLEAN CATCH Urine Color YELLOW Urine Turbidity CLEAR Urine pH 6.0 Urine Specific [place] 1.025 Urine Protein NEG Urine Glucose (UA) 1000 OR GREATER Urine Ketones NEG Urine Occult Blood TRACE Urine Nitrite NEG Urine Bilirubin NEG Urine Leukocyte Esterase NEG Urine RBC 0-3 Urine Squamous Epithelial 0-5 Cells Microscopic Urinalysis Comment CULT NOT INDICATED Urine Collection Time 11:00 Result Diagram: 12/04/16 1000 12/04/16 1000 Imaging Last Impressions Chest X-Ray 12/04/16 1013 Signed Impressions: Service Date/Time: Sunday, December 04, 2016 10:26 - CONCLUSION: No acute disease. Albaro Gregorio MD Assessment and Plan Assessment and Plan //Hyperglycemia -Glucose in the 600s on admission. Sodium in the 120s, however corrects to the 130s. -Patient stresses compliance with insulin Likely exacerbated secondary to right arm abscess. Treat abscess Flomax Status post 2 L of normal saline in the ER. IV insulin. Diabetic diet and insulin sliding scale. Continue to monitor. //Acute kidney injury. Creatinine 2.1. Normal baseline. -Likely secondary to hyperglycemia, dehydration Treat for hyperglycemia with IV fluids, insulin. Continue to monitor. //Right upper arm abscess. -Abscess culture pending Clinda. Monitor. //Diarrhea. No recent antibiotics. Recent hospitalization in June. Check C. difficile. //Hypertension. Blood pressure acceptable. Hold LIZETT inhibitor due to acute kidney injury //History of anxiety, panic attack //Seizure disorder //Confusion -Subjective. Patient is alert and oriented 3 however. -Continue home medications, with the exception of gabapentin, which may be causing patient's fatigue in the setting of acute kidney injury. //Prophylaxis. SCDs. Heparin. Discussed Condition With Patient, nurse, ED physician. Physician Certification 2 Midnight Certification Type: Admission for Inpatient Services Order for Inpatient Services The services are ordered in accordance with Medicare regulations or non- Medicare payer requirements, as applicable. In the case of services not specified as inpatient-only, they are appropriately provided as inpatient services in accordance with the 2-midnight benchmark. Estimated LOS (days): 2 days is the estimated time the patient will need to remain in the hospital, assuming treatment plan goals are met and no additional complications. Post-Hospital Plan: Not yet determined Jose Durham MD Dec 04, 2016 14:52
[2016-12-04] MEDS: CLINDAMYCIN INJ 600 MG in SODIUM CHLORIDE 0.9% INJ 100 ML IV SCH ×2 (15:18→21:02)
[2016-12-04] MEDS: INSULIN ASPART SUPPLEMENTAL SCALE SQ SCH ×2 (15:31→21:02)
[2016-12-04 16:00] VITALS: BP 148/76; PULSE 68; RESP 16; TEMP 97.4; O2SAT 98
[2016-12-04 17:38] LABS: ANION GAP 10 MEQ/L (5-15); BLOOD UREA NITROGEN 29 MG/DL (7-18); CHLORIDE 97 MEQ/L (98-107); GLOMERULAR FILTRATION RATE 48 ML/MIN (>89); POTASSIUM 3.3 MEQ/L (3.5-5.1); SODIUM (NA) 133 MEQ/L (136-145)
[2016-12-04] MEDS ORDERED: ACETAMINOPHEN 325 MG TAB PO PRN (17:45)
[2016-12-04] MEDS ORDERED: ACETAMINOPHEN/HYDROcodone 325 MG/5 MG TAB PO PRN (17:45)
[2016-12-04] MEDS ORDERED: POTASSIUM CHLOR 10 MEQ PREMIX 100 ML IV ONE (18:00)
[2016-12-04] MEDS ORDERED: POTASSIUM CHLORIDE 10 MEQ CONTROLLED RELEASE TAB PO ONE (18:00)
--- NOTE | 2016-12-04 18:20 | EKG ---
Date Performed: 12/04/2016 Time Performed: 10:34:48 PTAGE: 56 years EKG: Sinus rhythm Normal ECG NO SIGNIFICANT CHANGE FROM PRIOR ELECTROCARDIOGRAM. PREVIOUS TRACING : 08/09/2016 15.23 DOCTOR: Lakhwinder Stout Interpretating Date/Time 12/04/2016 18:19:44
[2016-12-04] MEDS: ACETAMINOPHEN/HYDROcodone 325 MG/7.5 MG TAB PO PRN ×2 (18:21→23:31)
[2016-12-04] MEDS: 1/2 NS + KCL 20 MEQ INJ 1,000 ML IV SCH (18:22)
[2016-12-04 20:00] VITALS: BP 120/86; PULSE 80; RESP 20; TEMP 98.6; O2SAT 95
[2016-12-04] MEDS: SODIUM CHLORIDE 0.9% FLUSH 10 ML FLUSH IV FLUSH SCH (20:38)
[2016-12-04] MEDS: DOCUSATE SODIUM 50 MG/SENNA 8.6 MG TAB PO SCH ×2 (20:57→21:00)
[2016-12-04] MEDS: levETIRAcetam 500 MG TAB PO SCH (20:57)
[2016-12-04] MEDS: PHENYTOIN SODIUM 100 MG CAP PO SCH (20:57)
[2016-12-04] MEDS: METOPROLOL TARTRATE 100 MG TAB PO SCH (20:57)
[2016-12-04] MEDS: HALOPERIDOL 5 MG TAB PO SCH (20:57)
[2016-12-04 22:07] LABS: HEMOGLOBIN A1a 1.1 %; HEMOGLOBIN A1b 1.6 %; HEMOGLOBIN Ao 73.7 %; HEMOGLOBIN LA1C 3.5 %; HEMOGLOBIN P3 8.7 %
[2016-12-05] VITALS: BP 127/85; PULSE 71; RESP 20; TEMP 98.2; O2SAT 98
[2016-12-05] MEDS: 1/2 NS + KCL 20 MEQ INJ 1,000 ML IV SCH ×3 (03:21→23:18)
[2016-12-05] MEDS: CLINDAMYCIN INJ 600 MG in SODIUM CHLORIDE 0.9% INJ 100 ML IV SCH ×4 (04:15→23:07)
[2016-12-05] MEDS: ACETAMINOPHEN/HYDROcodone 325 MG/7.5 MG TAB PO PRN ×5 (06:11→23:18)
[2016-12-05] MEDS: INSULIN ASPART SUPPLEMENTAL SCALE SQ SCH ×4 (06:53→20:21)
[2016-12-05] MEDS ORDERED: INSULIN ASPART 1,000 UNITS/10 ML VIAL SQ ONE (07:00)
[2016-12-05 07:38] LABS: HEMATOCRIT 36.9 % (39.0-51.0); MEAN CELL VOLUME 91.2 FL (80.0-100.0); MEAN CORPUSCULAR HEMOGLOBIN 31.9 PG (27.0-34.0); PLATELET COUNT 234 TH/MM3 (150-450); RED BLOOD COUNT 4.04 MIL/MM3 (4.50-5.90); RED CELL DISTRIBUTION WIDTH 12.7 % (11.6-17.2); WHITE BLOOD COUNT 5.8 TH/MM3 (4.0-11.0)
[2016-12-05 07:48] LABS: HEMO FLAGS AUTO DIFF
[2016-12-05 08:00] VITALS: BP 145/109; PULSE 66; RESP 16; TEMP 97.1; O2SAT 97
[2016-12-05 08:16] LABS: ALKALINE PHOSPHATASE 94 U/L (45-117); ANION GAP 9 MEQ/L (5-15); BICARBONATE 25.2 MEQ/L (21.0-32.0); CHLORIDE 98 MEQ/L (98-107); GLOMERULAR FILTRATION RATE 48 ML/MIN (>89); POTASSIUM 4.3 MEQ/L (3.5-5.1); SODIUM (NA) 132 MEQ/L (136-145); TOTAL BILIRUBIN ADULT 0.2 MG/DL (0.2-1.0)
[2016-12-05 08:32] LABS: ALT (GPT) 44 U/L (12-78); AST (GOT) 42 U/L (15-37); BLOOD UREA NITROGEN 27 MG/DL (7-18)
[2016-12-05 08:33] LABS: EOSINOPHILS 5 % (0-4); NEUTROPHIL # MANUAL DIFF 2.6 TH/MM3 (1.8-7.7); PLATELET ESTIMATE SMEAR NORMAL (NORMAL); PLATELET MORPHOLOGY NORMAL (NORMAL); POLYS (SEG NEUTROPHILS) 44 % (16-70); SCAN/DIFF FINAL DIFF MANUAL; WBC DIFF SAMPLE 100
[2016-12-05] MEDS: DOCUSATE SODIUM 50 MG/SENNA 8.6 MG TAB PO SCH ×3 (08:55→20:12)
[2016-12-05] MEDS: HALOPERIDOL 5 MG TAB PO SCH ×2 (08:55→20:12)
[2016-12-05] MEDS: busPIRone HCL 5 MG TAB PO SCH ×3 (08:55→17:09)
[2016-12-05] MEDS: METOPROLOL TARTRATE 100 MG TAB PO SCH ×2 (08:55→20:12)
[2016-12-05] MEDS: levETIRAcetam 500 MG TAB PO SCH ×2 (08:55→20:12)
[2016-12-05] MEDS: PHENYTOIN SODIUM 100 MG CAP PO SCH ×2 (08:55→20:12)
[2016-12-05] MEDS: PANTOPRAZOLE SOD 40 MG DELAYED RELEASE TAB PO SCH (08:56)
[2016-12-05] MEDS: SODIUM CHLORIDE 0.9% FLUSH 10 ML FLUSH IV FLUSH SCH ×2 (09:00→20:12)
[2016-12-05] MEDS ORDERED: INSULIN DETEMIR 100 UNITS/ML VIAL SQ SCH (09:30)
[2016-12-05] MEDS: HEPARIN SODIUM - SQ 10,000 UNITS/ML VIAL SQ SCH ×2 (11:46→23:08)
[2016-12-05 12:00] VITALS: BP 151/104; PULSE 62; RESP 16; TEMP 97.7; O2SAT 97
[2016-12-05] MEDS ORDERED: SODIUM CHLORID 0.9% 500 ML INJ 500 ML IV ONE (13:30)
--- NOTE | 2016-12-05 13:52 | HHI.PR ---
Subjective Remarks Patient seen this morning around 11:30 AM. Says he is feeling better. Denies any chest pain or shortness of breath. Reports pain at abscess site controlled. Objective Vital Signs Date Time Temp Pulse Resp B/P Pulse Ox O2 Delivery O2 Flow Rate FiO2 12/05/16 12:00 97.7 62 16 151/104 97 12/05/16 08:00 97.1 66 16 145/109 97 12/05/16 07:30 18 12/05/16 00:00 98.2 71 20 127/85 98 12/04/16 20:00 98.6 80 20 120/86 95 12/04/16 16:00 97.4 68 16 148/76 98 12/04/16 14:30 68 16 100/67 97 Room Air I/O 12/04/16 12/04/16 12/04/16 12/05/16 12/05/16 12/05/16 07:00 15:00 23:00 07:00 15:00 23:00 Intake Total 2000 ml 740 ml 60 ml Output Total 550 ml 0 ml Balance 1450 ml 740 ml 60 ml Intake Oral 240 ml 60 ml IV Total 2000 ml 500 ml Output Urine Total 550 ml 0 ml # Voids 1 0 2 # Bowel Movements 0 0 Result Diagram: 12/05/16 0712/05/16 07 Objective Remarks GENERAL: She is sitting up in bed. Appears couple. SKIN: Warm and dry. Right upper arm abscess draining small amount of pus. Minimal surrounding erythema. HEAD: Normocephalic. EYES: No scleral icterus. No injection or drainage. NECK: Supple, trachea midline. No JVD or lymphadenopathy. CARDIOVASCULAR: Regular rate and rhythm without murmurs, gallops, or rubs. RESPIRATORY: Breath sounds equal bilaterally. No accessory muscle use. GASTROINTESTINAL: Abdomen soft, non-tender, nondistended. MUSCULOSKELETAL: No cyanosis, or edema. BACK: Nontender without obvious deformity. No CVA tenderness. A/P Assessment and Plan =======12/05/16 //Hyperglycemia improved. Still elevated, likely secondary infection. Continue IV fluids. Continue to monitor. //Abscess inflammation improved. Still draining. Cultures with gram-positive cocci in clusters. Follow-up sensitivities. Continue clindamycin. //Acute kidney injury improving. Creatinine 1.5. Continue to hold LIZETT inhibitor. Continue to monitor. //Hyperglycemia //Uncontrolled diabetes. A1c 10.9. -Glucose in the 600s on admission. Sodium in the 120s, however corrects to the 130s. -Patient stresses compliance with insulin Likely exacerbated secondary to right arm abscess. Treat abscess Flomax Status post 2 L of normal saline in the ER. IV insulin. Diabetic diet and insulin sliding scale. -Improving. Continue to monitor. //Acute kidney injury. Creatinine 2.1. On admission. 1.5 -Likely secondary to hyperglycemia, dehydration Treat for hyperglycemia with IV fluids, insulin. Continue to monitor. //Right upper arm abscess. -Abscess and studies pending. Continue Clinda. -Will need follow-up with primary care for right arm abscess as outpatient. Monitor. //Diarrhea. No recent antibiotics. Recent hospitalization in June. -To be secondary to magnesium supplementation -Appears to have resolved. No need for C. difficile. //Hypertension. Blood pressure acceptable. Hold LIZETT inhibitor due to acute kidney injury. -Restart amlodipine //History of anxiety, panic attack //Seizure disorder //Confusion //Depression. -Subjective. Patient is alert and oriented 3 however. -Continue home medications, with the exception of gabapentin, which may be causing patient's fatigue in the setting of acute kidney injury. -Restart gabapentin at lower dose -Restart Lamictal -Restarted antidepressant. -Restart Klonopin //Prophylaxis. SCDs. Heparin. Discharge Planning Possible discharge home tomorrow. Follow-up abscess cultures We'll need follow-up with primary care to follow right upper arm abscess. Jose Durham MD Dec 05, 2016 13:52
[2016-12-05] MEDS: FLUoxetine HCL 20 MG CAP PO SCH (14:38)
[2016-12-05 16:00] VITALS: BP 158/101; PULSE 65; RESP 16; TEMP 96.4; O2SAT 99
[2016-12-05] MEDS: GABAPENTIN 100 MG CAP PO SCH (17:09)
[2016-12-05 20:00] VITALS: BP 155/100; PULSE 73; RESP 20; TEMP 96.7; O2SAT 98
[2016-12-05] MEDS: amLODIPine BESYLATE 5 MG TAB PO SCH (20:12)
[2016-12-05] MEDS: lamoTRIgine 100 MG TAB PO SCH (20:12)
[2016-12-06] VITALS: BP 144/100; PULSE 66; RESP 18; TEMP 96.7; O2SAT 97
[2016-12-06 04:00] VITALS: BP 148/98; PULSE 68; RESP 18; TEMP 96.9; O2SAT 98
[2016-12-06] MEDS: CLINDAMYCIN INJ 600 MG in SODIUM CHLORIDE 0.9% INJ 100 ML IV SCH ×2 (04:04→12:11)
[2016-12-06] MEDS: ACETAMINOPHEN/HYDROcodone 325 MG/7.5 MG TAB PO PRN ×2 (04:05→08:40)
[2016-12-06 06:26] LABS: HEMATOCRIT 37.3 % (39.0-51.0); MEAN CELL VOLUME 92.7 FL (80.0-100.0); MEAN CORPUSCULAR HGB CONC 34.5 % (32.0-36.0); PLATELET COUNT 259 TH/MM3 (150-450); RED BLOOD COUNT 4.03 MIL/MM3 (4.50-5.90); RED CELL DISTRIBUTION WIDTH 12.9 % (11.6-17.2); WHITE BLOOD COUNT 5.7 TH/MM3 (4.0-11.0)
[2016-12-06 06:32] LABS: HEMO FLAGS AUTO DIFF
[2016-12-06] MEDS: INSULIN ASPART SUPPLEMENTAL SCALE SQ SCH ×2 (06:42→11:00)
[2016-12-06 06:56] LABS: POTASSIUM 3.9 MEQ/L (3.5-5.1)
[2016-12-06 07:12] LABS: BICARBONATE 27.1 MEQ/L (21.0-32.0); MAGNESIUM 1.8 MG/DL (1.5-2.5)
[2016-12-06 07:46] LABS: EOSINOPHILS 3 % (0-4); NEUTROPHIL # MANUAL DIFF 2.3 TH/MM3 (1.8-7.7); POLYS (SEG NEUTROPHILS) 41 % (16-70); WBC DIFF SAMPLE 100
[2016-12-06 07:47] LABS: PLATELET ESTIMATE SMEAR NORMAL (NORMAL); PLATELET MORPHOLOGY NORMAL (NORMAL); SCAN/DIFF FINAL DIFF MANUAL
[2016-12-06 08:00] VITALS: BP 158/113; PULSE 70; RESP 18; TEMP 96.3; O2SAT 98
[2016-12-06] MEDS ORDERED: HYOSCYAMINE 0.125 MG TAB PO SCH (09:00)
[2016-12-06] MEDS ORDERED: INSULIN DETEMIR 100 UNITS/ML VIAL SQ SCH (09:00)
[2016-12-06] MEDS: DOCUSATE SODIUM 50 MG/SENNA 8.6 MG TAB PO SCH (09:26)
[2016-12-06] MEDS: METOPROLOL TARTRATE 100 MG TAB PO SCH (09:26)
[2016-12-06] MEDS: FLUoxetine HCL 20 MG CAP PO SCH (09:26)
[2016-12-06] MEDS: busPIRone HCL 5 MG TAB PO SCH ×2 (09:26→12:19)
[2016-12-06] MEDS: levETIRAcetam 500 MG TAB PO SCH (09:26)
[2016-12-06] MEDS: PANTOPRAZOLE SOD 40 MG DELAYED RELEASE TAB PO SCH (09:27)
[2016-12-06] MEDS: PHENYTOIN SODIUM 100 MG CAP PO SCH (09:27)
[2016-12-06] MEDS: amLODIPine BESYLATE 5 MG TAB PO SCH (09:27)
[2016-12-06] MEDS: HALOPERIDOL 5 MG TAB PO SCH (09:27)
[2016-12-06] MEDS: lamoTRIgine 100 MG TAB PO SCH (09:27)
[2016-12-06] MEDS: GABAPENTIN 100 MG CAP PO SCH ×2 (09:28→12:19)
[2016-12-06] MEDS: SODIUM CHLORIDE 0.9% FLUSH 10 ML FLUSH IV FLUSH SCH (09:29)
[2016-12-06] MEDS ORDERED: CEPH500C PO (11:42)
--- NOTE | 2016-12-06 11:43 | HHI.DCPOC ---
Discharge Care Plan Diagnosis: (1) Hyponatremia (2) Renal insufficiency (3) Hyperglycemia (4) DM (diabetes mellitus) (5) HTN (hypertension) (6) Infected sebaceous cyst of skin Goals to Promote Your Health * To prevent worsening of your condition and complications * To maintain your health at the optimal level Directions to Meet Your Goals Take your medications as prescribed Follow your dietary instruction Follow activity as directed Keep your appointments as scheduled Take your immunizations and boosters as scheduled If your symptoms worsen call your PCP, if no PCP go to Urgent Care Center or Emergency Room Smoking is Dangerous to Your Health. Avoid second hand smoke Call the 24-hour hour crisis hotline for domestic abuse at Magnus Membreno MD Dec 06, 2016 11:43
--- NOTE | 2016-12-06 11:47 | HHI.DS ---
Discharge Summary Admission Date Dec 04, 2016 at 11:45 Discharge Date: Dec 06, 2016 Admitting Diagnosis hyperglycemia. Hyponatremia. Renal insufficiency. (1) Infected sebaceous cyst of skin ICD Code: L72.3 (2) DM (diabetes mellitus) ICD Code: E11.9 (3) HTN (hypertension) ICD Code: I10 (4) Renal insufficiency ICD Code: N28.9 (5) Hyponatremia ICD Code: E87.1 (6) Hyperglycemia ICD Code: R73.9 Procedures 12/04/16 incision and drainage of infected sebaceous cyst, right upper arm Brief History - From Admission 56-year-old male with a history of diabetes type 2 on insulin, hypertension, chronic pain who presents with a one-week history of worsening fatigue, two- week history of nonbloody diarrhea without any abdominal pain, as well as a three-day history of hyperglycemia with glucose above 400. He denies any nausea or vomiting. Denies any fevers or chills. He does report an abscess on the right arm which has been growing in size over the past 2 weeks. Denies any history of MRSA. Patient reports compliance with his insulin. Denies any dysuria. Denies any chest pain. Denies any shortness of breath. Patient does report feeling a little bit more tired and "slow" over the past several days, however remains alert and oriented 3. Denies headache. No focal signs or symptoms CBC/BMP: 12/06/16 0615 12/06/16 0615 Significant Findings Laboratory Tests Test 12/04/16 12/04/16 12/04/16 12/05/16 10:00 11:00 16:20 07:05 Red Blood Count 4.48 MIL/MM3 4.04 MIL/MM3 (4.50-5.90) (4.50-5.90) Prothrombin Time 9.7 SEC (9.8-11.6) Sodium Level 123 MEQ/L 133 MEQ/L 132 MEQ/L (136-145) (136-145) (136-145) Chloride Level 85 MEQ/L 97 MEQ/L (98-107) (98-107) Blood Urea Nitrogen 36 MG/DL (7-18) 29 MG/DL (7-18) 27 MG/DL (7-18) Creatinine 2.10 MG/DL 1.50 MG/DL 1.50 MG/DL (0.60-1.30) (0.60-1.30) (0.60-1.30) Estimat Glomerular Filtration 33 ML/MIN (>89) 48 ML/MIN (>89) 48 ML/MIN (>89) Rate Random Glucose 626 MG/DL 239 MG/DL 448 MG/DL (74-106) (74-106) (74-106) Alkaline Phosphatase 130 U/L (45-117) Troponin I LESS THAN 0.02 NG/ML (0.02-0.05) Urine Glucose (UA) 1000 OR GREATER mg/dL (NEG) Urine Occult Blood TRACE (NEG) Potassium Level 3.3 MEQ/L (3.5-5.1) Hemoglobin A1c 10.9 % (4.3-6.0) Hemoglobin 12.9 GM/DL (13.0-17.0) Hematocrit 36.9 % (39.0-51.0) Eosinophils % 5 % (0-4) Calcium Level 8.2 MG/DL (8.5-10.1) Aspartate Amino Transf 42 U/L (15-37) (AST/SGOT) Albumin 3.1 GM/DL (3.4-5.0) Test 12/06/16 06:15 Red Blood Count 4.03 MIL/MM3 (4.50-5.90) Hemoglobin 12.9 GM/DL (13.0-17.0) Hematocrit 37.3 % (39.0-51.0) Lymphocytes % 52 % (9-44) Estimat Glomerular Filtration 63 ML/MIN (>89) Rate Random Glucose 248 MG/DL (74-106) Calcium Level 7.7 MG/DL (8.5-10.1) Phosphorus Level 2.2 MG/DL (2.5-4.9) Albumin 3.1 GM/DL (3.4-5.0) Imaging Last Impressions Chest X-Ray 12/04/16 1013 Signed Impressions: Service Date/Time: Sunday, December 04, 2016 10:26 - CONCLUSION: No acute disease. Albaro Gregorio MD PE at Discharge General: No acute distress. Heart: Regular rate and rhythm. No murmur. Lungs: Clear to auscultation bilaterally. No wheezes, rales, or rhonchi. Breathing is nonlabored. Abdomen: Soft, nontender, nondistended. Extremities: No lower extremity edema. Psych: Alert and oriented. Skin: Healing incision on the right upper arm. Minimal surrounding erythema. No drainage or apparent fluctuance. Pt update on day of discharge Patient states that he feels much better. Only complaint at this time is back pain, which he attributes to lying in the hospital bed. Feels that he is ready to go home. Hospital Course The patient was admitted for management of right upper arm infection, uncontrolled diabetes, and acute kidney injury. He was continued on antibiotics and IV fluids. Incision and drainage was done upon admission. Had significant improvement in the infection, and on the day of discharge there was only minimal erythema and no drainage. Wound culture grew normal skin trey. The patient's electrolytes improved. BUN and creatinine improved with IV hydration. Glucose control improved as well. Is felt to be stable for discharge home. Pt Condition on Discharge: Stable Discharge Disposition: Discharge Home Discharge Time: > 30 minutes Discharge Instructions DIET: Follow Instructions for: Diabetic Diet Activities you can perform: Regular-No Restrictions Follow up Referrals: PCP Follow-up - 1 Week New Medications: Cephalexin (Cephalexin) 500 Mg Cap 500 MG PO Q6H Infection #20 Ref 0 CAP Continued Medications: Amlodipine (Amlodipine) 5 Mg Tab 5 MG PO BID Blood Pressure Management #30 Ref 0 TAB Atorvastatin (Atorvastatin) 40 Mg Tab 40 MG PO HS Cholesterol Management #30 Ref 0 TAB Benazepril (Benazepril) 20 Mg Tab 20 MG PO BID Blood Pressure Management #60 Ref 0 TAB Buspirone (Buspirone) 5 Mg Tab 5 MG PO TID Anxiety Ref 0 TAB Clonazepam (Klonopin) 2 Mg Tab 2 MG PO TID #90 Ref 0 TAB Fluoxetine (Prozac) 40 Mg Cap 80 MG PO BID #30 Ref 0 CAP Gabapentin (Gabapentin) 300 Mg Cap 600 MG PO TID #60 Ref 0 CAP Gabapentin (Gabapentin) 300 Mg Cap 300 MG PO HS #30 Ref 0 CAP Haloperidol (Haloperidol) 5 Mg Tab 5 MG PO BID Psychosis #30 TAB Hyoscyamine (Hyoscyamine) 0.125 Mg Tab 0.125 MG PO DAILY Gastrointestinal disorders Ref 0 TAB Insulin Glargine Inj (Lantus Inj) 1,000 Unit/10 Ml Vial 55 UNITS SQ DAILY Blood Sugar Management Ref 0 VIAL Lamotrigine (Lamictal) 100 Mg Tab 100 MG PO BID MOOD DISORDER #60 Ref 0 TAB Levetiracetam (Keppra) 500 Mg Tab 1000 MG PO Q12HR Seizure Control #120 TAB Magnesium Oxide (Magnesium Oxide) 400 Mg Tab 400 MG PO DAILY Nutritional Supplement Ref 0 TAB Metformin (Metformin) 1,000 Mg Tab 1000 MG PO BIDPC With meals Blood Sugar Management #60 Ref 0 TAB Metoprolol Tartrate (Metoprolol Tartrate) 100 Mg Tab 100 MG PO BID #60 Ref 0 TAB Ondansetron (Zofran) 8 Mg Tab 8 MG PO Q8HR PRN NAUSEA OR VOMITING Ref 0 TAB Pantoprazole (Protonix) 40 Mg Tab 40 MG PO DAILY Reflux #30 Ref 0 TAB Phenytoin Extended (Dilantin) 100 Mg Cap 200 MG PO BID SZ Days 30 CAP Potassium Chloride ER (K-Tab) 20 Meq Tab 20 MEQ PO DAILY Electrolyte Replacement #30 Ref 0 TAB Magnus Membreno MD Dec 06, 2016 11:47
[2016-12-06 12:00] VITALS: BP 130/83; PULSE 68; RESP 18; TEMP 96; O2SAT 98
[2016-12-06] MEDS ORDERED: LISINOPRIL 20 MG TAB PO SCH (12:00)
[2016-12-06] MEDS: HEPARIN SODIUM - SQ 10,000 UNITS/ML VIAL SQ SCH (12:20)
[2016-12-06] MEDS ORDERED: ATORVASTATIN 40 MG TAB PO SCH (21:00)
[2016-12-07] MEDS ORDERED: MAGNESIUM OXIDE 400 MG TAB PO SCH (09:00)
== END 2016-12-06 14:30 | disposition home or self-care (01) | DRG 603 ==
LOC: PHED 09:41 → PHEDA 11:45 → PH3A 15:05
PROVIDERS: ADMIT Family Medicine; ATTEND Family Medicine
PROC: 0H9BXZZ Drainage of Right Upper Arm Skin, External Approach (ICD-10-PCS; principal; 2016-12-04)
DX: L02.413 Cutaneous abscess of right upper limb (principal); N17.9 Acute kidney failure, unspecified; E87.1 Hypo-osmolality and hyponatremia; E11.65 Type 2 diabetes mellitus with hyperglycemia; I10 Essential (primary) hypertension; F32.9 Major depressive disorder, single episode, unspecified; K21.9 Gastro-esophageal reflux disease without esophagitis; G40.909 Epilepsy, unspecified, not intractable, without status epilepticus; F17.210 Nicotine dependence, cigarettes, uncomplicated; G89.29 Other chronic pain; R19.7 Diarrhea, unspecified; F41.0 Panic disorder [episodic paroxysmal anxiety]; E86.0 Dehydration; Z96.641 Presence of right artificial hip joint; L72.3 Sebaceous cyst; Z79.4 Long term (current) use of insulin; Z79.84 Long term (current) use of oral hypoglycemic drugs
CPT/HCPCS: 71010; 80053; 80069; 81001; 82010; 82550; 82948; 83036; 83735; 84443; 84484; 85007; 85025; 85027; 85610; 85730; 87070; 87185; 87205; 93005; 96360; J1644; J1815; J3480; J7030; J7040

== ENCOUNTER 2018-02-06 18:46 | Observation (INO) ==
--- NOTE | 2018-02-06 19:57 | ED ---
HPI General Chief complaint: Weakness Stated complaint: rt arm weakness Source: patient and family History of Present Illness HPI Narrative: 57-year-old male arrives with his with note of chronic low back pain with progressive weakness to his bilateral lower legs. He states he has had where he has been unsteady on his legs but since dinner he has not been able to walk due to weakness in his legs. His states that he has not been acting himself for the past couple days as well when she came home from work he had a bruise on his eye and he did not know how he got it. Patient cannot give me significant details and history is limited. MD Complaint: difficulty walking Onset (ago): hour(s) Duration: progressively worsening Location: LLE and RLE Migration: none Relieving factors: none Related Data Home Medications Medication Instructions Recorded Confirmed amlodipine 10 mg PO BID 02/06/18 02/06/18 atorvastatin 40 mg PO EVERY OTHER DAY 02/06/18 02/06/18 atorvastatin 80 mg PO EVERY OTHER DAY 02/06/18 02/06/18 benazepril 20 mg PO BID 02/06/18 02/06/18 bupropion HCl 150 mg PO BID 02/06/18 02/06/18 clonazepam 2 mg PO TID PRN 02/06/18 02/06/18 clonidine HCl 0.1 mg PO BID 02/06/18 02/06/18 fenofibrate 160 mg PO DAILY 02/06/18 02/06/18 fluoxetine 80 mg PO DAILY 02/06/18 02/06/18 fluticasone 1 spray INTRANASAL DAILY 02/06/18 02/06/18 hydrochlorothiazide 25 mg PO DAILY 02/06/18 02/06/18 hyoscyamine sulfate 0.125 mg PO DAILY PRN 02/06/18 02/06/18 insulin NPH and regular human 50 unit SUB-Q BID 02/06/18 02/06/18 [Novolin 70/30 U-100 Insulin] magnesium oxide 400 mg PO DAILY 02/06/18 02/06/18 metoprolol tartrate 50 mg PO BID 02/06/18 02/06/18 ondansetron 8 mg PO BID PRN 02/06/18 02/06/18 potassium chloride 20 meq PO DAILY 02/06/18 02/06/18 pregabalin [Lyrica] 75 mg PO BID 02/06/18 02/06/18 Allergies Allergy/AdvReac Type Severity Reaction Status Date / Time ketorolac [From Toradol] Allergy Agitation Verified 02/06/18 19:03 Review of Systems ROS: all other systems reviewed are negative PMFSH History History Provided By: Patient and Family Member (notes chronic back pain with pain management injections, last couple months ago, awhile since last mri) Medical History Medical History Anxiety (Acute) Bipolar 1 disorder, depressed (Acute) Chronic pain (Acute) Diabetes mellitus (Acute) High cholesterol (Acute) Hypertension (Acute) Irritable bowel syndrome (Acute) Neuropathy (Acute) Seasonal allergies (Acute) Seizure (Acute) Surgical History Surgical History History of right hip replacement (Acute) History of tonsillectomy (Acute) Hx of shoulder surgery (Acute) Social History Social History Substance History: No History of Abuse Smoking Status: Current every day smoker Tobacco Type: Cigarettes How Often Do You Have a Drink Containing Alcohol: 2 to 3 times a week Recent Travel in [facility] within the Last 8 Weeks: No Recent Out of Country Travel within the Last 8 Weeks: No Exam Narrative Exam Narrative: GENERAL: 57 y/o male in no apparent distress SKIN: Focused skin assessment warm/dry. HEAD: Old ecchymosis noted periorbitally on right. Normocephalic. EYES: Pupils equal and round. No scleral icterus. No injection or drainage. ENT: No nasal bleeding or discharge. Mucous membranes pink and moist. NECK: Trachea midline. no midline cervical spine pain CARDIOVASCULAR: Regular rate and rhythm. RESPIRATORY: No accessory muscle use. Clear to auscultation. Breath sounds equal bilaterally. GASTROINTESTINAL: Abdomen soft, non-tender, nondistended. MUSCULOSKELETAL: No obvious deformities. No clubbing. No cyanosis. No edema. NEUROLOGICAL: Awake and alert. patient able to lift legs off bed but only able to keep up for about 1 second each bilaterally otherwise nonfocal. Normal speech. Course Hospital Course: patient updated and agrees to admit Consultations Consultation #1: charmaine with dr sommers agrees to admit Initial Documented Vital Signs Temperature 99.1 F 02/06/18 19:05 Pulse Rate 107 H 02/06/18 19:05 Respiratory Rate 18 02/06/18 19:05 Blood Pressure 136/80 02/06/18 19:05 Pulse Oximetry 96 02/06/18 19:05 Last Documented Vital Signs Temperature 99.1 F 02/06/18 19:05 Pulse Rate 85 02/06/18 23:28 Respiratory Rate 15 02/06/18 23:28 Blood Pressure 136/99 H 02/06/18 23:28 Pulse Oximetry 95 02/06/18 23:28 Medical Decision Making MDM Narrative Medical decision making narrative: Will check blood work, imaging and reevaluate. Given significant weakness in bilateral legs he will need MRI of lumbar spine in addition to altered mental status workup Medical Screen Exam Complete: Yes Emergency Medical Condition: Yes Differential Diagnosis Differential Diagnosis: abscess, herniated disc, electrolyte abnormality, UTI, bleed Lab Data Lab results reviewed: Yes I reviewed the patient's lab results. Result diagrams: 02/06/18 20:20 02/06/18 20:20 Lab Results 02/06/18 02/06/18 02/06/18 Range/Units 19:46 20:20 20:20 CBC w Diff Auto diff final WBC 8.6 (4.0-11.0) th/mm3 RBC 4.61 (4.50-5.90) mil/mm3 Hgb 15.1 (13.0-17.0) gm/dL Hct 43.9 (39.0-51.0) % MCV 95.4 (80.0-100.0) fL MCH 32.7 (27.0-34.0) pg MCHC 34.3 (32.0-36.0) % RDW 12.9 (11.6-17.2) % Plt Count 243 (150-450) th/mm3 MPV 8.2 (7.0-11.0) fL Neut % (Auto) 59.3 (16.0-70.0) % Lymph % (Auto) 31.0 (9.0-44.0) % [place] % (Auto) 5.8 (0.0-8.0) % Eos % (Auto) 3.3 (0.0-4.0) % Baso % (Auto) 0.6 (0.0-2.0) % Neut # (Auto) 5.0 (1.8-7.7) th/mm3 Lymph # (Auto) 2.7 (1.0-4.8) th/mm3 [place] # (Auto) 0.5 (0.0-0.9) th/mm3 Eos # (Auto) 0.3 (0.0-0.4) th/mm3 Baso # (Auto) 0.1 (0.0-0.2) th/mm3 WBC Differential . Differential Comment . PT 10.7 (9.8-11.6) sec INR 1.1 Ratio APTT 21.5 L (24.3-30.1) sec Sodium (136-145) meq/L Potassium (3.5-5.1) meq/L Chloride (98-107) meq/L Carbon Dioxide (21.0-32.0) meq/L Anion Gap (5-15) meq/L BUN (7-18) mg/dL Creatinine (0.60-1.30) mg/dL Estimated GFR (>89) mL/min POC Glucose (68-110) mg/dl Random Glucose (74-106) mg/dL Lactic Acid (0.4-2.0) mmol/L Calcium (8.5-10.1) mg/dL Total Bilirubin (0.2-1.0) mg/dL AST (15-37) U/L ALT (12-78) U/L Alkaline Phosphatase (45-117) U/L Ammonia (11-32) mcmol/L Total Creatine Kinase (39-308) U/L Total Protein (6.4-8.2) g/dL Albumin (3.4-5.0) g/dL Urine Color (Yellw/Straw) Urine Clarity (Clear) Urine pH (5.0-8.5) Ur Specific [place] (1.002-1.035) Urine Protein (Neg-Trace) mg/dL Urine Glucose (UA) (Negative) mg/dL Urine Ketones (Negative) mg/dL Urine Occult Blood (Negative) Urine Nitrate (Negative) Urine Bilirubin (Negative) Urine Urobilinogen (Less than 2) mg/dL Ur Leukocyte Esterase (Negative) Urine RBC (0-3) /hpf Urine WBC (0-5) /hpf Ur Squamous Epith Cells (0-5) /hpf Hyaline Casts (0-3) /lpf Micro UA Comment Urine Culture Comments U Benzodiazepines Scrn (Neg) Serum Alcohol Less than 3 (0-5) mg/dL 02/06/18 02/06/18 02/06/18 Range/Units 20:20 20:20 20:20 CBC w Diff WBC (4.0-11.0) th/mm3 RBC (4.50-5.90) mil/mm3 Hgb (13.0-17.0) gm/dL Hct (39.0-51.0) % MCV (80.0-100.0) fL MCH (27.0-34.0) pg MCHC (32.0-36.0) % RDW (11.6-17.2) % Plt Count (150-450) th/mm3 MPV (7.0-11.0) fL Neut % (Auto) (16.0-70.0) % Lymph % (Auto) (9.0-44.0) % [place] % (Auto) (0.0-8.0) % Eos % (Auto) (0.0-4.0) % Baso % (Auto) (0.0-2.0) % Neut # (Auto) (1.8-7.7) th/mm3 Lymph # (Auto) (1.0-4.8) th/mm3 [place] # (Auto) (0.0-0.9) th/mm3 Eos # (Auto) (0.0-0.4) th/mm3 Baso # (Auto) (0.0-0.2) th/mm3 WBC Differential Differential Comment PT (9.8-11.6) sec INR Ratio APTT (24.3-30.1) sec Sodium 134 L (136-145) meq/L Potassium 4.2 (3.5-5.1) meq/L Chloride 102 (98-107) meq/L Carbon Dioxide 21.9 (21.0-32.0) meq/L Anion Gap 10 (5-15) meq/L BUN 29 H (7-18) mg/dL Creatinine 1.90 H (0.60-1.30) mg/dL Estimated GFR 37 L (>89) mL/min POC Glucose (68-110) mg/dl Random Glucose 263 H (74-106) mg/dL Lactic Acid 2.0 (0.4-2.0) mmol/L Calcium 8.3 L (8.5-10.1) mg/dL Total Bilirubin 0.3 (0.2-1.0) mg/dL AST 61 H (15-37) U/L ALT 76 (12-78) U/L Alkaline Phosphatase 89 (45-117) U/L Ammonia 63 H (11-32) mcmol/L Total Creatine Kinase 131 (39-308) U/L Total Protein 7.3 (6.4-8.2) g/dL Albumin 3.8 (3.4-5.0) g/dL Urine Color (Yellw/Straw) Urine Clarity (Clear) Urine pH (5.0-8.5) Ur Specific [place] (1.002-1.035) Urine Protein (Neg-Trace) mg/dL Urine Glucose (UA) (Negative) mg/dL Urine Ketones (Negative) mg/dL Urine Occult Blood (Negative) Urine Nitrate (Negative) Urine Bilirubin (Negative) Urine Urobilinogen (Less than 2) mg/dL Ur Leukocyte Esterase (Negative) Urine RBC (0-3) /hpf Urine WBC (0-5) /hpf Ur Squamous Epith Cells (0-5) /hpf Hyaline Casts (0-3) /lpf Micro UA Comment Urine Culture Comments U Benzodiazepines Scrn (Neg) Serum Alcohol (0-5) mg/dL 02/06/18 02/06/18 02/06/18 Range/Units 21:22 23:10 23:10 CBC w Diff WBC (4.0-11.0) th/mm3 RBC (4.50-5.90) mil/mm3 Hgb (13.0-17.0) gm/dL Hct (39.0-51.0) % MCV (80.0-100.0) fL MCH (27.0-34.0) pg MCHC (32.0-36.0) % RDW (11.6-17.2) % Plt Count (150-450) th/mm3 MPV (7.0-11.0) fL Neut % (Auto) (16.0-70.0) % Lymph % (Auto) (9.0-44.0) % [place] % (Auto) (0.0-8.0) % Eos % (Auto) (0.0-4.0) % Baso % (Auto) (0.0-2.0) % Neut # (Auto) (1.8-7.7) th/mm3 Lymph # (Auto) (1.0-4.8) th/mm3 [place] # (Auto) (0.0-0.9) th/mm3 Eos # (Auto) (0.0-0.4) th/mm3 Baso # (Auto) (0.0-0.2) th/mm3 WBC Differential Differential Comment PT (9.8-11.6) sec INR Ratio APTT (24.3-30.1) sec Sodium (136-145) meq/L Potassium (3.5-5.1) meq/L Chloride (98-107) meq/L Carbon Dioxide (21.0-32.0) meq/L Anion Gap (5-15) meq/L BUN (7-18) mg/dL Creatinine (0.60-1.30) mg/dL Estimated GFR (>89) mL/min POC Glucose 298 H (68-110) mg/dl Random Glucose (74-106) mg/dL Lactic Acid (0.4-2.0) mmol/L Calcium (8.5-10.1) mg/dL Total Bilirubin (0.2-1.0) mg/dL AST (15-37) U/L ALT (12-78) U/L Alkaline Phosphatase (45-117) U/L Ammonia (11-32) mcmol/L Total Creatine Kinase (39-308) U/L Total Protein (6.4-8.2) g/dL Albumin (3.4-5.0) g/dL Urine Color Yellow (Yellw/Straw) Urine Clarity Clear (Clear) Urine pH 6.0 (5.0-8.5) Ur Specific [place] 1.020 (1.002-1.035) Urine Protein Trace (Neg-Trace) mg/dL Urine Glucose (UA) 100 H (Negative) mg/dL Urine Ketones Trace (Negative) mg/dL Urine Occult Blood Negative (Negative) Urine Nitrate Negative (Negative) Urine Bilirubin Negative (Negative) Urine Urobilinogen 0.2 (Less than 2) mg/dL Ur Leukocyte Esterase Negative (Negative) Urine RBC 0-3 (0-3) /hpf Urine WBC 0-5 (0-5) /hpf Ur Squamous Epith Cells 0-5 (0-5) /hpf Hyaline Casts 0-3 (0-3) /lpf Micro UA Comment Culture not ind Urine Culture Comments Culture not ind U Benzodiazepines Scrn Pos H (Neg) Serum Alcohol (0-5) mg/dL Imaging Data Attestation: I personally reviewed and interpreted this imaging study as follows : Radiologist's impression: Chest X-Ray 02/06/18 19:46 CONCLUSION: No acute cardiopulmonary process. Head CT 02/06/18 19:46 CONCLUSION: Negative exam. . Lumbar Spine MRI 02/06/18 19:46 CONCLUSION: 1. Mild degenerative disc disease at L4-5 and L5-S1 with some loss of disc height, disc desiccation and a small central disc protrusion at the L4-5 level. 2. However, the spinal canal and neural foramina are patent throughout without nerve root compromise to explain current clinical symptoms. Discharge Plan Discharge Disposition Patient Disposition: 30 Still Patient Discharge Details Diagnosis: Acute hepatic encephalopathy, Bilateral leg weakness, Acute renal insufficiency Physicians Team ED Provider: Rosy Glover Primary Care Provider: Camden Coley Attending Provider: Gabriella Sommers Discharge Interventions Interventions: Vital Signs Last Done: 02/06/18 23:28 Status ED Status: Admitted Observation Patient
--- NOTE | 2018-02-06 20:10 | XR ---
EXAM DATE: 02/06/2018 8:05 PM EDT AGE/SEX: 57 years / Male INDICATIONS: Short of breath and weakness since this morning. CLINICAL DATA: This is the patient's initial encounter. Patient reports that signs and symptoms have been present for 1 day and indicates a pain score of 0/10. MEDICAL/SURGICAL HISTORY: None. None. COMPARISON: [facility], CHEST SINGLE AP, 12/04/2016. . FINDINGS: A single AP view of the chest demonstrates the lungs to be symmetrically aerated without evidence of mass, infiltrate or effusion. The cardiomediastinal contours are unremarkable. Osseous structures a re intact. CONCLUSION: No acute cardiopulmonary process. Electronically signed by: Samuel Lam MD 02/06/2018 8:08 PM EDT
[2018-02-06 20:36] LABS: Baso # (Auto) 0.1 th/mm3 (0.0-0.2); Baso % (Auto) 0.6 % (0.0-2.0); Eos # (Auto) 0.3 th/mm3 (0.0-0.4); Eos % (Auto) 3.3 % (0.0-4.0); Hematocrit 43.9 % (39.0-51.0); Hemoglobin 15.1 gm/dL (13.0-17.0); Lymph # (Auto) 2.7 th/mm3 (1.0-4.8); Mean Corpuscular HGB Conc 34.3 % (32.0-36.0); Mean Corpuscular Hemoglobin 32.7 pg (27.0-34.0); Mean Corpuscular Volume 95.4 fL (80.0-100.0); Mean Platelet Volume 8.2 fL (7.0-11.0); Mono # (Auto) 0.5 th/mm3 (0.0-0.9); Mono % (Auto) 5.8 % (0.0-8.0); Neut % (Auto) 59.3 % (16.0-70.0); Platelet Count 243 th/mm3 (150-450); Red Blood Count 4.61 mil/mm3 (4.50-5.90); Red Cell Distribution Width 12.9 % (11.6-17.2); White Blood Count 8.6 th/mm3 (4.0-11.0)
[2018-02-06 20:56] LABS: Activated Partial Thrombo Time 21.5 sec (24.3-30.1); INR 1.1 Ratio; Prothrombin Time 10.7 sec (9.8-11.6)
--- NOTE | 2018-02-06 21:02 | CT ---
EXAM DATE: 02/06/2018 8:55 PM EDT AGE/SEX: 57 years / Male INDICATIONS: Right arm weakness. Trauma, head injury. CLINICAL DATA: This is the patient's initial encounter. Patient reports that signs and symptoms have been present for 1 day and indicates a pain score of 5/10. MEDICAL/SURGICAL HISTORY: None. None. RADIATION DOSE: 61.57 CTDI (mGy) COMPARISON: [facility] [place], MRI BRAIN W & W/O CONTRAST, 07/21/2016. . TECHNIQUE: CT of the head without contrast. Using automated exposure control and adjustment of the mA and/or kV according to patient size, radiation dose was kept as low as reasonably achievable to ob tain optimal diagnostic quality images. DICOM format image data is available electronically for revi ew and comparison. FINDINGS: Cerebrum: The ventricles are normal for age. No evidence of midline shift, mass lesion, hemorrhage or acute infarction. No extraaxial fluid collections are seen. Posterior Fossa: The cerebellum and brainstem are intact. The 4th ventricle is midline. The cerebe llopontine angle is unremarkable. Extracranial: The visualized portion of the orbits is intact. Skull: The calvaria is intact. No evidence of skull fracture. CONCLUSION: Negative exam. . Electronically signed by: Samuel Lam MD 02/06/2018 9:01 PM EDT
[2018-02-06 21:18] LABS: Chloride 102 meq/L (98-107); Potassium 4.2 meq/L (3.5-5.1); Sodium 134 meq/L (136-145)
[2018-02-06 21:21] LABS: Albumin 3.8 g/dL (3.4-5.0); Calcium 8.3 mg/dL (8.5-10.1)
[2018-02-06 21:22] LABS: Blood Urea Nitrogen 29 mg/dL (7-18); Glucose,Random 263 mg/dL (74-106)
[2018-02-06 21:23] LABS: Anion Gap 10 meq/L (5-15); Carbon Dioxide 21.9 meq/L (21.0-32.0)
[2018-02-06 21:24] LABS: Alanine Aminotransferase 76 U/L (12-78)
[2018-02-06 21:25] LABS: Aspartate Aminotransferase 61 U/L (15-37); Glomerular Filtration Rate 37 mL/min (>89)
[2018-02-06 21:26] LABS: Total Protein 7.3 g/dL (6.4-8.2)
[2018-02-06 21:27] LABS: Alkaline Phosphatase 89 U/L (45-117); Creatine Kinase 131 U/L (39-308)
[2018-02-06] MEDS ORDERED: Sod Chloride 0.9% Inj 1,000 ML IV.SIG ONE ×2 (21:35→22:29)
[2018-02-06] MEDS ORDERED: Gadobutrol PF 10 MMOL/10 ML Vial (for RAD) IV.SIG ONE (22:23)
--- NOTE | 2018-02-06 22:29 | MR ---
EXAM DATE: 02/06/2018 10:22 PM EDT AGE/SEX: 57 years / Male INDICATIONS: Weakness. Bilateral leg weakness. CLINICAL DATA: This is the patient's initial encounter. Patient reports that signs and symptoms have been present for 1 day and indicates a pain score of 8/10. MEDICAL/SURGICAL HISTORY: Hypertension. Diabetes mellitus type II. Seizures. Neuropathy. . Right hip replacement, Left shoulder sx, Tens unit placed and removed. COMPARISON: No prior exams available for comparison. TECHNIQUE: Multiplanar, multisequence MRI examination of the lumbar spine was performed without and with 10 ml Gadavist (gadobutrol) contrast as a single exam dose. FINDINGS: Sagittal T1 pre and postcontrast, T2 and inversion recovery images show generative disc disease isola radha to the L4-5 and L5-S1 disc interspaces with loss of disc height and disc desiccation. Vertebral b kamilah heights are maintained throughout without fracture or listhesis. Mild, broad-based disc bulge at L4-5 encroaches on the anterior epidural space but the spinal canal is present at this and all remain ing lumbar levels. Small cortical cyst laterally in the right kidney T12-L1: The thecal sac has a normal diameter. No evidence of disc bulge or protrusion. The neural foramina are patent bilaterally. L1-L2: The thecal sac has a normal diameter. No evidence of disc bulge or protrusion. The neural foramina are patent bilaterally. L2-L3: The thecal sac has a normal diameter. No evidence of disc bulge or protrusion. The neural foramina are patent bilaterally. L3-L4: The thecal sac has a normal diameter. No evidence of disc bulge or protrusion. The neural foramina are patent bilaterally. L4-L5: Small central disc protrusion. Spinal canal and neural foramina are patent L5-S1: The thecal sac has a normal diameter. No evidence of disc bulge or protrusion. The neural foramina are patent bilaterally. CONCLUSION: 1. Mild degenerative disc disease at L4-5 and L5-S1 with some loss of disc height, disc desiccation and a small central disc protrusion at the L4-5 level. 2. However, the spinal canal and neural foramina are patent throughout without nerve root compromise to explain current clinical symptoms. Electronically signed by: Samuel Lam MD 02/06/2018 10:27 PM EDT
[2018-02-06 23:25] LABS: Bilirubin,Urine Negative (Negative); Clarity,Urine Clear (Clear); Color,Urine Yellow (Yellw/Straw); Glucose,Urine (UA) 100 mg/dL (Negative); Leukocyte Esterase,Urine Negative (Negative); Nitrite,Urine Negative (Negative); Urobilinogen,Urine 0.2 mg/dL (Less than 2)
[2018-02-06 23:32] LABS: Hyaline Casts,Urine 0-3 /lpf (0-3); RBC,Urine 0-3 /hpf (0-3); Squamous Epithelial Cell,Urine 0-5 /hpf (0-5); WBC,Urine 0-5 /hpf (0-5)
[2018-02-06] MEDS ORDERED: Haloperidol Inj 5 MG/ML Ampul IV.PUSH PRN (23:32)
[2018-02-06 23:42] LABS: Amphetamine Screen,Urine Neg (Neg); Barbiturate Screen,Urine Neg (Neg)
[2018-02-06 23:49] LABS: Cocaine Screen,Urine Neg (Neg)
[2018-02-06 23:52] LABS: Cannabinoid Screen,Urine Neg (Neg)
[2018-02-06 23:58] LABS: Opiate Screen,Urine Neg (Neg)
[2018-02-07] MEDS: Sod Chloride 0.9% Inj 1,000 ML IV.CONT SCH ×3 (03:00→22:36)
[2018-02-07 06:07] LABS: Baso # (Auto) 0.1 th/mm3 (0.0-0.2); Eos # (Auto) 0.2 th/mm3 (0.0-0.4); Eos % (Auto) 3.9 % (0.0-4.0); Hematocrit 39.6 % (39.0-51.0); Hemoglobin 13.3 gm/dL (13.0-17.0); Lymph # (Auto) 2.5 th/mm3 (1.0-4.8); Lymph % (Auto) 40.4 % (9.0-44.0); Mean Corpuscular HGB Conc 33.6 % (32.0-36.0); Mean Corpuscular Hemoglobin 32.3 pg (27.0-34.0); Mean Corpuscular Volume 96.2 fL (80.0-100.0); Mean Platelet Volume 8.6 fL (7.0-11.0); Mono # (Auto) 0.4 th/mm3 (0.0-0.9); Mono % (Auto) 6.9 % (0.0-8.0); Neut # (Auto) 2.9 th/mm3 (1.8-7.7); Neut % (Auto) 47.8 % (16.0-70.0); Platelet Count 197 th/mm3 (150-450); Red Blood Count 4.12 mil/mm3 (4.50-5.90); Red Cell Distribution Width 12.8 % (11.6-17.2); White Blood Count 6.1 th/mm3 (4.0-11.0)
[2018-02-07 06:24] LABS: Calcium 7.3 mg/dL (8.5-10.1); Carbon Dioxide 26.3 meq/L (21.0-32.0)
[2018-02-07 06:35] LABS: Total Protein 6.3 g/dL (6.4-8.2)
[2018-02-07] MEDS ORDERED: Calcium Chloride Inj 1 GM in Dextrose 5% in Water Inj 100 ML IV.SIG ONE ×2 (10:00)
--- NOTE | 2018-02-07 11:08 | ECG ---
Date Performed: 02/06/2018 Time Performed: 20:06:09 PTAGE: 57 years EKG: Sinus rhythm NORMAL ECG PREVIOUS TRACING : 12/04/2016 10.34 Since the previous tracing, no significant change noted DOCTOR: José Schrader Interpretating Date/Time 02/07/2018 11:06:35
[2018-02-07] MEDS ORDERED: Dextrose 50% in Water 50 ML Vial IV.PUSH PRN (13:01)
[2018-02-07] MEDS ORDERED: Ibuprofen 600 MG Tablet PO PRN (13:31)
--- NOTE | 2018-02-07 13:31 | P.HP ---
History of Present Illness Primary Care Physician: Camden Coley MD History of Present Illness: 57-year-old male with a history of diabetes, seizure disorder, hypertension, bipolar, irritable bowel syndrome, chronic pain. He presented to the ER yesterday after his legs failed him when attempting to stand up after dinner. Last week he had a fall related to this weakness. He fell yesterday and bumped his forehead causing a black eye on the right. He reports the last time before that that he had difficulty walking was in July 2015, but that had to do with medication mixup and accidental overdose caused a seizure. He reports that he changed his insulin recently. He denies any chest pain, denies diaphoresis, denies irregular heartbeat. Patient denies diarrhea nausea or vomiting. Review of Systems All other systems reviewed negative except as stated in HPI [facility] - History History Provided By: Patient - Medical History Medical History: Medical History (Last Reviewed 02/07/18 @ 07:26 by Alcides Asher) Anxiety Bipolar 1 disorder, depressed Chronic pain Diabetes mellitus High cholesterol Hypertension Irritable bowel syndrome Neuropathy Seasonal allergies Seizure - Surgical History Surgical History: Surgical History (Last Reviewed 02/07/18 @ 07:26 by Alcides Asher) History of right hip replacement History of tonsillectomy Hx of shoulder surgery - Family History Family History: Family History (Last Updated 02/07/18 @ 13:26 by Carter Evangelista MD) Other Hypertension - Tobacco History Second Hand Smoke Exposure: Yes Tobacco Use In Past 30 Days: Yes Smoking Status: Current every day smoker Tobacco Type: Cigarettes - Alcohol History How Often Do You Have a Drink Containing Alcohol: 2 to 3 times a week - Substance Use History Substance History: No History of Abuse - Travel History Recent Travel in the [facility] Within the Last 8 Weeks: No Recent Travel Out of the Country Within the Last 8 Weeks: No - Immunization History Tetanus Immunization: <5 Years Hx Influenza Vaccine This Season: Yes Medications and Allergies Active Medications: Active Medications Clonidine HCl (Catapres) 0.1 mg PO Q6H PRN PRN Reason: SBP>160, DBP>90 Last Admin: 02/07/18 09:23 Dose: 0.1 mg Dextrose (D50w Vial) 50 ml IV.PUSH UNSCH PRN PRN Reason: PER HYPOGLYCEMIA PROTOCOL Flumazenil (Romazecon Inj) 0.2 mg IV.PUSH Q1M PRN PRN Reason: OVERSEDATION Glucagon (Glucagon Inj) 1 mg OTHER PRN PRN PRN Reason: for Hypoglycemia Protocol Haloperidol Lactate (Haldol Inj) 1 mg IV.PUSH Q15M PRN PRN Reason: for severe agitation Sodium Chloride (Ns Inj) 1,000 mls @ 100 mls/hr IV.CONT .Q10H [facility] Last Admin: 02/07/18 03:00 Dose: 100 mls/hr Insulin Aspart (Novolog Insulin Correctional Sugar Inj) 0 unit SQ ACHS [facility]; Protocol Lactulose (Lactulose Liq) 30 ml PO QID [facility] Last Admin: 02/07/18 09:23 Dose: 30 ml Lorazepam (Ativan) 1 mg PO Q4H PRN PRN Reason: for CIWA 8-10 Lorazepam (Ativan) 2 mg PO Q2H PRN PRN Reason: for CIWA 11-14 Lorazepam (Ativan Inj) 2 mg IV.PUSH Q2H PRN PRN Reason: for CIWA 11-14 Lorazepam (Ativan Inj) 2 mg IV.PUSH Q1H PRN PRN Reason: for CIWA 15-20 Lorazepam (Ativan Inj) 1 mg IV.PUSH Q4H PRN PRN Reason: for CIWA 8-10 Lorazepam (Ativan Inj) 2 mg IV.PUSH Q15M PRN PRN Reason: for CIWA > 20 Ondansetron HCl (Zofran Inj) 4 mg IV.PUSH Q6H PRN PRN Reason: NAUSEA OR VOMITING Sodium Chloride (Ns Flush) 2 ml IV.FLUSH PRN PRN PRN Reason: FLUSH AFTER USING IV ACCESS Allergies Allergy/AdvReac Type Severity Reaction Status Date / Time ketorolac [From Toradol] Allergy Agitation Verified 02/06/18 19:03 Home Medications Medication Instructions Recorded Confirmed Type amlodipine 10 mg PO BID 02/06/18 02/06/18 History atorvastatin 40 mg PO EVERY OTHER DAY 02/06/18 02/06/18 History atorvastatin 80 mg PO EVERY OTHER DAY 02/06/18 02/06/18 History benazepril 20 mg PO BID 02/06/18 02/06/18 History bupropion HCl 150 mg PO BID 02/06/18 02/06/18 History clonazepam 2 mg PO TID PRN 02/06/18 02/06/18 History clonidine HCl 0.1 mg PO BID 02/06/18 02/06/18 History fenofibrate 160 mg PO DAILY 02/06/18 02/06/18 History fluoxetine 80 mg PO DAILY 02/06/18 02/06/18 History fluticasone 1 spray INTRANASAL DAILY 02/06/18 02/06/18 History hydrochlorothiazide 25 mg PO DAILY 02/06/18 02/06/18 History hyoscyamine sulfate 0.125 mg PO DAILY PRN 02/06/18 02/06/18 History insulin NPH and regular human 50 unit SUB-Q BID 02/06/18 02/06/18 History [Novolin 70/30 U-100 Insulin] magnesium oxide 400 mg PO DAILY 02/06/18 02/06/18 History metoprolol tartrate 50 mg PO BID 02/06/18 02/06/18 History ondansetron 8 mg PO BID PRN 02/06/18 02/06/18 History potassium chloride 20 meq PO DAILY 02/06/18 02/06/18 History pregabalin [Lyrica] 75 mg PO BID 02/06/18 02/06/18 History Exam Vital signs: Vital Signs 02/06/18 19:05 02/06/18 19:12 02/06/18 21:12 Temperature 99.1 F Pulse Rate 107 H 87 87 Respiratory Rate 18 15 Blood Pressure 136/80 134/94 H 134/94 H Pulse Oximetry 96 95 95 02/06/18 21:16 02/06/18 23:28 02/07/18 00:15 Temperature 97.2 F L Pulse Rate 85 83 Respiratory Rate 15 20 Blood Pressure 136/99 H 138/93 H Pulse Oximetry 95 95 96 02/07/18 04:00 02/07/18 08:00 02/07/18 12:00 Temperature 97.4 F L 97.6 F 97.6 F Pulse Rate 80 75 71 Respiratory Rate 20 22 20 Blood Pressure 146/90 H 179/110 H Pulse Oximetry 95 95 95 Intake & Output 02/06/18 02/07/18 02/07/18 18:59 06:59 18:59 Intake Total 2480 / 2480 720 / 720 Output Total 300 / 300 Balance 2480 / 2480 420 / 420 Weight 114.2 kg Intake: IV 1999 NS Inj 1,000 ML @ Wide Open IV. 1999 SIG BOLUS ONE Rx#:[id number] Oral 480 / 480 720 / 720 Output: Urine 300 / 300 Other: # Voids 0 Narrative: GENERAL: AAOx3, no acute distress, adequate nutrition, obese SKIN: Warm and dry, no rashes. Ecchymosis under right eye HEAD: Atraumatic. Normocephalic. EYES: Pupils equal, round, reactive to light. No scleral icterus. No injection or drainage. ENT: No nasal bleeding or discharge. Moist mucous membranes. Nonerythematous oropharynx. NECK: Trachea midline. No JVD. Thyroid size within normal limits. CARDIOVASCULAR: Regular rate and rhythm. No murmur, no gallops, no rubs. RESPIRATORY: Clear and equal to auscultation bilaterally. No crackles, no wheezes. No accessory muscle use. GASTROINTESTINAL: Abdomen soft, obese, non-tender, nondistended, normal active bowel sounds. Hepatic and splenic margins not palpable. MUSCULOSKELETAL: Extremities without clubbing or cyanosis. No obvious deformities. Trace edema NEUROLOGICAL: Awake and alert. No obvious cranial nerve deficits. Motor grossly within normal limits. No focal deficits. Five out of 5 muscle strength in the arms and legs. Normal speech. PSYCHIATRIC: Appropriate mood and affect; insight and judgment normal. Results - Labs CBC & Chem 7: 02/07/18 05:00 02/07/18 05:00 Labs: Laboratory Results - last 24 hr 02/06/18 02/06/18 02/06/18 19:46 20:20 20:20 CBC w Diff Auto diff final WBC 8.6 RBC 4.61 Hgb 15.1 Hct 43.9 MCV 95.4 MCH 32.7 MCHC 34.3 RDW 12.9 Plt Count 243 MPV 8.2 Neut % (Auto) 59.3 Lymph % (Auto) 31.0 Sampson % (Auto) 5.8 Eos % (Auto) 3.3 Baso % (Auto) 0.6 Neut # (Auto) 5.0 Lymph # (Auto) 2.7 Sampson # (Auto) 0.5 Eos # (Auto) 0.3 Baso # (Auto) 0.1 WBC Differential . Differential Comment . PT 10.7 INR 1.1 APTT 21.5 L Sodium Potassium Chloride Carbon Dioxide Anion Gap BUN Creatinine Estimated GFR POC Glucose Random Glucose Lactic Acid Calcium Prot Corrected Calcium Total Bilirubin AST ALT Alkaline Phosphatase Ammonia Total Creatine Kinase Total Protein Albumin Urine Color Urine Clarity Urine pH Ur Specific [place] Urine Protein Urine Glucose (UA) Urine Ketones Urine Occult Blood Urine Nitrate Urine Bilirubin Urine Urobilinogen Ur Leukocyte Esterase Urine RBC Urine WBC Ur Squamous Epith Cells Hyaline Casts Micro UA Comment Urine Culture Comments Urine Opiates Screen Ur Barbiturates Screen Ur Amphetamines Screen U Benzodiazepines Scrn Urine Cocaine Screen U Cannabinoids Screen Serum Alcohol Less than 3 02/06/18 02/06/18 02/06/18 20:20 20:20 20:20 CBC w Diff WBC RBC Hgb Hct MCV MCH MCHC RDW Plt Count MPV Neut % (Auto) Lymph % (Auto) Sampson % (Auto) Eos % (Auto) Baso % (Auto) Neut # (Auto) Lymph # (Auto) Sampson # (Auto) Eos # (Auto) Baso # (Auto) WBC Differential Differential Comment PT INR APTT Sodium 134 L Potassium 4.2 Chloride 102 Carbon Dioxide 21.9 Anion Gap 10 BUN 29 H Creatinine 1.90 H Estimated GFR 37 L POC Glucose Random Glucose 263 H Lactic Acid 2.0 Calcium 8.3 L Prot Corrected Calcium Total Bilirubin 0.3 AST 61 H ALT 76 Alkaline Phosphatase 89 Ammonia 63 H Total Creatine Kinase 131 Total Protein 7.3 Albumin 3.8 Urine Color Urine Clarity Urine pH Ur Specific [place] Urine Protein Urine Glucose (UA) Urine Ketones Urine Occult Blood Urine Nitrate Urine Bilirubin Urine Urobilinogen Ur Leukocyte Esterase Urine RBC Urine WBC Ur Squamous Epith Cells Hyaline Casts Micro UA Comment Urine Culture Comments Urine Opiates Screen Ur Barbiturates Screen Ur Amphetamines Screen U Benzodiazepines Scrn Urine Cocaine Screen U Cannabinoids Screen Serum Alcohol 02/06/18 02/06/18 02/06/18 21:22 23:10 23:10 CBC w Diff WBC RBC Hgb Hct MCV MCH MCHC RDW Plt Count MPV Neut % (Auto) Lymph % (Auto) Sampson % (Auto) Eos % (Auto) Baso % (Auto) Neut # (Auto) Lymph # (Auto) Sampson # (Auto) Eos # (Auto) Baso # (Auto) WBC Differential Differential Comment PT INR APTT Sodium Potassium Chloride Carbon Dioxide Anion Gap BUN Creatinine Estimated GFR POC Glucose 298 H Random Glucose Lactic Acid Calcium Prot Corrected Calcium Total Bilirubin AST ALT Alkaline Phosphatase Ammonia Total Creatine Kinase Total Protein Albumin Urine Color Yellow Urine Clarity Clear Urine pH 6.0 Ur Specific [place] 1.020 Urine Protein Trace Urine Glucose (UA) 100 H Urine Ketones Trace Urine Occult Blood Negative Urine Nitrate Negative Urine Bilirubin Negative Urine Urobilinogen 0.2 Ur Leukocyte Esterase Negative Urine RBC 0-3 Urine WBC 0-5 Ur Squamous Epith Cells 0-5 Hyaline Casts 0-3 Micro UA Comment Culture not ind Urine Culture Comments Culture not ind Urine Opiates Screen Neg Ur Barbiturates Screen Neg Ur Amphetamines Screen Neg U Benzodiazepines Scrn Pos H Urine Cocaine Screen Neg U Cannabinoids Screen Neg Serum Alcohol 02/07/18 02/07/18 02/07/18 05:00 05:00 08:33 CBC w Diff Auto diff final WBC 6.1 RBC 4.12 L Hgb 13.3 Hct 39.6 MCV 96.2 MCH 32.3 MCHC 33.6 RDW 12.8 Plt Count 197 MPV 8.6 Neut % (Auto) 47.8 Lymph % (Auto) 40.4 Sampson % (Auto) 6.9 Eos % (Auto) 3.9 Baso % (Auto) 1.0 Neut # (Auto) 2.9 Lymph # (Auto) 2.5 Sampson # (Auto) 0.4 Eos # (Auto) 0.2 Baso # (Auto) 0.1 WBC Differential . Differential Comment . PT INR APTT Sodium 136 Potassium 4.0 Chloride 103 Carbon Dioxide 26.3 Anion Gap 7 BUN 26 H Creatinine 1.80 H Estimated GFR 39 L POC Glucose Random Glucose 317 H Lactic Acid Calcium 7.3 L* D Prot Corrected Calcium 7.7 L Total Bilirubin AST ALT Alkaline Phosphatase Ammonia 24 Total Creatine Kinase Total Protein 6.3 L D Albumin Urine Color Urine Clarity Urine pH Ur Specific [place] Urine Protein Urine Glucose (UA) Urine Ketones Urine Occult Blood Urine Nitrate Urine Bilirubin Urine Urobilinogen Ur Leukocyte Esterase Urine RBC Urine WBC Ur Squamous Epith Cells Hyaline Casts Micro UA Comment Urine Culture Comments Urine Opiates Screen Ur Barbiturates Screen Ur Amphetamines Screen U Benzodiazepines Scrn Urine Cocaine Screen U Cannabinoids Screen Serum Alcohol 02/07/18 02/07/18 11:39 11:43 CBC w Diff WBC RBC Hgb Hct MCV MCH MCHC RDW Plt Count MPV Neut % (Auto) Lymph % (Auto) Sampson % (Auto) Eos % (Auto) Baso % (Auto) Neut # (Auto) Lymph # (Auto) Sampson # (Auto) Eos # (Auto) Baso # (Auto) WBC Differential Differential Comment PT INR APTT Sodium Potassium Chloride Carbon Dioxide Anion Gap BUN Creatinine Estimated GFR POC Glucose 467 H* 392 H Random Glucose Lactic Acid Calcium Prot Corrected Calcium Total Bilirubin AST ALT Alkaline Phosphatase Ammonia Total Creatine Kinase Total Protein Albumin Urine Color Urine Clarity Urine pH Ur Specific [place] Urine Protein Urine Glucose (UA) Urine Ketones Urine Occult Blood Urine Nitrate Urine Bilirubin Urine Urobilinogen Ur Leukocyte Esterase Urine RBC Urine WBC Ur Squamous Epith Cells Hyaline Casts Micro UA Comment Urine Culture Comments Urine Opiates Screen Ur Barbiturates Screen Ur Amphetamines Screen U Benzodiazepines Scrn Urine Cocaine Screen U Cannabinoids Screen Serum Alcohol - Imaging Impressions Chest X-Ray 02/06/18 19:46 CONCLUSION: No acute cardiopulmonary process. Head CT 02/06/18 19:46 CONCLUSION: Negative exam. . Lumbar Spine MRI 02/06/18 19:46 CONCLUSION: 1. Mild degenerative disc disease at L4-5 and L5-S1 with some loss of disc height, disc desiccation and a small central disc protrusion at the L4-5 level. 2. However, the spinal canal and neural foramina are patent throughout without nerve root compromise to explain current clinical symptoms. Caprini VTE Risk Assessment Caprini VTE Risk Assessment: Moderate/High Risk (score >= 2) Caprini Risk Assessment Model: Point Value = 1 Point Value = 2 Point Value = 3 Point Value = 5 Age 41-60 Minor surgery BMI > 25 kg/m2 Swollen legs Varicose veins or History of unexplained or recurrent spontaneous Oral contraceptives or hormone replacement Sepsis (< 1 month) Serious lung disease, including pneumonia (< 1 month) Abnormal pulmonary function Acute myocardial infarction Congestive heart failure (< 1 month) History of inflammatory bowel disease Medical patient at bed rest Age 61-74 Arthroscopic surgery Major open surgery (> 45 min) Laparoscopic surgery (> 45 min) Malignancy Confined to bed (> 72 hours) Immobilizing plaster cast Central venous access Age >= 75 History of VTE Family history of VTE Factor V Leiden Prothrombin [id number] Lupus anticoagulant Anticardiolipin antibodies Elevated serum homocysteine Heparin-induced thrombocytopenia Other congenital or acquired thrombophilia Stroke (< 1 month) Elective arthroplasty Hip, pelvis, or leg fracture Acute spinal cord injury (< 1 month) Prophylaxis Regimen: Total Risk Factor Score Risk Level Prophylaxis Regimen 0-1 Low Early ambulation 2 Moderate Order ONE of the following: *Sequential Compression Device (SCD) *Heparin 5000 units SQ BID 3-4 Higher Order ONE of the following medications: *Heparin 5000 units SQ TID *Enoxaparin/Lovenox 40 mg SQ daily (WT < 150 kg, CrCl > 30 mL/min) *Enoxaparin/Lovenox 30 mg SQ daily (WT < 150 kg, CrCl > 10-29 mL/min) *Enoxaparin/Lovenox 30 mg SQ BID (WT < 150 kg, CrCl > 30 mL/min) AND/OR *Sequential Compression Device (SCD) 5 or more Highest Order ONE of the following medications: *Heparin 5000 units SQ TID (Preferred with Epidurals) *Enoxaparin/Lovenox 40 mg SQ daily (WT < 150 kg, CrCl > 30 mL/min) *Enoxaparin/Lovenox 30 mg SQ daily (WT < 150 kg, CrCl > 10-29 mL/min) *Enoxaparin/Lovenox 30 mg SQ BID (WT < 150 kg, CrCl > 30 mL/min) AND *Sequential Compression Device (SCD) Assessment and Plan - Plan Bilateral lower extremity weakness with fall Follow is atraumatic, lab on admission showed elevated ammonia level Patient has history of chronic low back pain but no obvious stenosis on MRI Ammonia was treated patient is feeling more steady on his feet Continue with anti-inflammatory medications for treatment of low back disc herniation flareup Hyperammonemia Patient has no history of cirrhosis He did drink heavily in his youth, often a bottle of Roberto [employer] daily Borderline elevation of transaminases Leg weakness and twitching seem to clear after ammonia level came to normal Recheck ammonia level in the a.m. Liver ultrasound Hepatitis panel with a.m. labs Type 2 diabetes Accu-Cheks with sliding scale insulin coverage Diabetic diet DVT Prophylaxis Lovenox
[2018-02-07] MEDS: LORazepam 1 MG Tablet PO PRN (15:49)
[2018-02-07] MEDS: Insulin NovoLOG Aspart Correctional Sugar Inj SQ SCH ×2 (16:50→22:35)
[2018-02-08] MEDS: LORazepam 1 MG Tablet PO PRN (04:55)
[2018-02-08] MEDS: Sod Chloride 0.9% Inj 1,000 ML IV.CONT SCH (06:35)
[2018-02-08] MEDS: Insulin NovoLOG Aspart Correctional Sugar Inj SQ SCH ×2 (08:25→11:51)
--- NOTE | 2018-02-08 08:26 | US ---
EXAM DATE: 02/08/2018 8:17 AM EDT AGE/SEX: 57 years / Male INDICATIONS: Abdominal pain. CLINICAL DATA: This is the patient's initial encounter. Patient reports that signs and symptoms have been present for 1 day and indicates a pain score of 2/10. MEDICAL/SURGICAL HISTORY: . Anxiety. Bipolar. Diabetic. High cholesterol. HTN. IBS. Neuro oscar. Seizure. . Right hip replacement. Tonsillectomy. Shoulder surgery. COMPARISON: [facility], CT ABDOMEN AND PELVIS W AND W/O CONTRAST, 07/18/2017. . MEASUREMENTS: Liver:__ 22.8 cm. Common Bile Duct:__ 5mm. Right Kidney:__ 12.4 x 5.1 x 5.8 cm. FINDINGS: Liver: Moderate diffuse hyperechogenicity of the liver and hyperattenuation of the liver limiting swapna luations of the deeper segments. No mass identified. Portal Vein: Hepatopedal flow seen in portal vein. Common Duct: No intraluminal mass or stone visualized. Gallbladder: Demonstrates no wall thickening or pericholecystic fluid. No stones visualized. Pancreas: The visualized portions are within normal limits Right Kidney: 1.5 cm round simple cyst in the midpole. No evidence of hydronephrosis. Other: None. CONCLUSION: 1. Hepatic steatosis. 2. Borderline splenomegaly. 3. Simple cyst in the right kidney. Electronically signed by: Shahzad Grady MD 02/08/2018 8:24 AM EDT
[2018-02-08 12:04] LABS: Hepatitits B Surface Antigen Nonreactive (Nonreactive)
[2018-02-08 12:35] LABS: Hepatitis A IgM Antibody Nonreactive (Nonreactive)
--- NOTE | 2018-02-08 12:44 | P.DS ---
Date of admission: 02/06/18 23:29 Primary care physician: Camden Coley MD Brief History from admission: 57-year-old male with a history of diabetes, seizure disorder, hypertension, bipolar, irritable bowel syndrome, chronic pain. He presented to the ER yesterday after his legs failed him when attempting to stand up after dinner. Last week he had a fall related to this weakness. He fell yesterday and bumped his forehead causing a black eye on the right. He reports the last time before that that he had difficulty walking was in July 2015, but that had to do with medication mixup and accidental overdose caused a seizure. He reports that he changed his insulin recently. He denies any chest pain, denies diaphoresis, denies irregular heartbeat. Patient denies diarrhea nausea or vomiting. DS: Medications - Discharge Medications Prescriptions: lactulose 30 g PO BID PRN 7 Days #14 ea PRN Reason: Symptoms of Hyperammonemia DS: Summary Hospital Course: 57-year-old male admitted for generalized weakness and confusion, found to have hyperammonemia the ER. When he was treated with lactulose his symptoms cleared. Today he feels back to his baseline and would like to go home. Ultrasound of the liver shows hepatic steatosis, but no obvious cirrhosis. Patient admits to drinking heavily last weekend. I have advised patient to avoid drinking for at least 6 weeks to 60 years. He should follow-up with his primary care provider. Hepatitis panel was negative. - Time Spent with Patient Total time spent providing and/or coordinating discharge services: Less than 30 minutes - Quality: VTE Deep Vein Thrombosis/Pulmonary Embolism Present on Admission: No Exam Vital signs: Vital Signs 02/07/18 16:00 02/07/18 20:00 02/08/18 00:00 Temperature 97.7 F 97.9 F 98.9 F Pulse Rate 73 77 73 Respiratory Rate 22 20 20 Blood Pressure 164/96 H 170/104 H 142/104 H Pulse Oximetry 95 94 L 97 02/08/18 04:00 02/08/18 07:48 02/08/18 11:19 Temperature 97.9 F 96.1 F L 96.2 F L Pulse Rate 65 71 74 Respiratory Rate 20 20 20 Blood Pressure 160/106 H 178/90 H 156/86 H Pulse Oximetry 97 97 97 Intake & Output 02/07/18 02/08/1802/08/18 18:59 06:59 18:59 Intake Total 1830 / 1830 480 / 480 Output Total 300 / 300 Balance 1530 / 1530 480 / 480 Weight 111.9 kg Intake: IV 1110 / 1110 NS Inj 1,000 ML @ 100 mls/hr IV 1000 / 1000 .CONT .Q10H TALIB Rx#:[id number] Calcium Chloride Inj 1 GM In 110 / 110 D5W Inj 100 ML @ 110 mls/hr IV. SIG ONCE ONE Rx#:[id number] Oral 720 / 720 480 / 480 Output: Urine 300 / 300 Other: # Voids 3 Results Procedures completed during hospitalization: none Labs on day of discharge: Labs from last 24 hours 02/08/18 02/08/18 02/08/18 11:29 07:44 06:27 POC Glucose 262 H 318 H Random Glucose Ammonia TSH 0.609 Hepatitis A IgM Ab Hep Bs Antigen Hep B Core IgM Ab Hep C IgG Ab 02/08/18 02/08/18 02/07/18 06:27 06:27 22:15 POC Glucose Random Glucose 411 H Ammonia 13 TSH Hepatitis A IgM Ab Nonreactive Hep Bs Antigen Nonreactive Hep B Core IgM Ab Nonreactive Hep C IgG Ab Nonreactive 02/07/18 02/07/18 21:52 16:13 POC Glucose 575 H* 472 H* Random Glucose Ammonia TSH Hepatitis A IgM Ab Hep Bs Antigen Hep B Core IgM Ab Hep C IgG Ab - Impressions ITS Impressions Chest X-Ray 02/06/18 19:46 CONCLUSION: No acute cardiopulmonary process. Head CT 02/06/18 19:46 CONCLUSION: Negative exam. . Lumbar Spine MRI 02/06/18 19:46 CONCLUSION: 1. Mild degenerative disc disease at L4-5 and L5-S1 with some loss of disc height, disc desiccation and a small central disc protrusion at the L4-5 level. 2. However, the spinal canal and neural foramina are patent throughout without nerve root compromise to explain current clinical symptoms. Liver Ultrasound 02/08/18 00:00 CONCLUSION: 1. Hepatic steatosis. 2. Borderline splenomegaly. 3. Simple cyst in the right kidney. Discharge Plan - Discharge Disposition Patient Disposition: 01 Discharge Home - Discharge Condition Condition: Good - Discharge Order Discharge Orders: Discharge Order (Routine); Ordered 02/08/18 Ordered By: Carter Evangelista - Physicians Team Primary Care Provider: Camden Coley Attending Provider: Carter Evangelista
== END 2018-02-08 13:24 | disposition home or self-care (01) ==
LOC: PH3 18:46 → PHEDA 18:46 → PHED 18:46 → PH3 02-07 00:20
PROVIDERS: ADMIT Family Medicine; ATTEND Family Medicine